=== PATIENT | male | born 1950 | race Caucasian/White ===

== ENCOUNTER 2019-09-01 07:26 | Outpatient (CLI) | payer MEDICARE, OTHER, SELFPAY ==
[2019-09-01 08:07] LABS: Hematocrit 40.1 % (42.0-52.0); Hemoglobin 13.3 g/dL (14.0-18.0); Mean Corpuscular HGB Conc 33.2 g/dl (32-36); Mean Corpuscular Hemoglobin 30.3 pg (26-34); Mean Corpuscular Volume 91.3 fl (80-100); Mean Platelet Volume 9.3 fl (7.4-10.4); Platelet Count Result 190 k/mm3 (150-375); Red Blood Count 4.39 M/mm3 (4.6-6.20); Red Cell Distribution Width 13.7 % (11.5-14.5); White Blood Count 5.8 K/mm3 (4.5-10.0)
[2019-09-01 08:09] LABS: Alanine Aminotransferase 20 U/L (4-50); Albumin Level 4.3 g/dL (3.5-5.1); Alkaline Phosphatase 70 U/L (38-126); Aspartate Amino Transferase 35 U/L (17-59); Bilirubin,Total 0.2 mg/dL (0.2-1.3); Blood Urea Nitrogen 15 mg/dL (9-20); Calcium 9.3 mg/dL (8.4-10.2); Carbon Dioxide 31 mmol/L (22-30); Chloride 105 mmol/L (98-107); Cholesterol 188 mg/dL (0-200); Estimated Glomerular Filt Rate > 60; Glucose 100 mg/dL (75-110); HDL Direct 50 mg/dL; Potassium 4.5 mmol/L (3.4-5.0); Sodium 140 mmol/L (137-145); Triglycerides 115 mg/dL (<150)
[2019-09-01 08:20] LABS: LDL Cholesterol Direct 109 mg/dL
[2019-09-01 08:40] LABS: Prostate Specific Antigen 1.4 ng/mL (< OR = 4.0)
== END 2019-09-01 07:27 | disposition home or self-care (01) ==
PROVIDERS: PCP Family Medicine; Visit Provider Family Medicine
DX: D64.9 Anemia, unspecified (principal); E78.2 Mixed hyperlipidemia; Z12.5 Encounter for screening for malignant neoplasm of prostate
CPT/HCPCS: 36415; 80048; 80061; 80076; 84153; 85027; G0103

== ENCOUNTER 2019-10-25 16:33 | Emergency (ER) | payer MEDICARE, OTHER, SELFPAY ==
[2019-10-25 16:46] VITALS: BP 119/74; PULSE 70; RESP 20; TEMP 37.1; O2SAT 100
--- NOTE | 2019-10-25 16:57 | ED.WOUNDLAC ---
HPI - Wound/Laceration General Chief Complaint: Wound/Laceration Stated Complaint: L/index finger Source: patient Mode of arrival: ambulatory Limitations: no limitations History of Present Illness HPI narrative: 69-year-old male presents to urgent care with complaints of laceration to his left index finger which occurred 1 to 2 hours ago. Patient reports that he cut his finger on a trailer at home. Patient is unsure of his last tetanus shot. Patient denies numbness, tingling, decreased range of motion. Onset (ago): hour(s) (2) Location: other (left index finger) Place: home Patient tetanus UTD: No Context: accidental Associated symptoms: none Related Data Allergies Allergy/AdvReac Type Severity Reaction Status Date / Time No Known Allergies Allergy Verified 08/25/19 15:00 Review of Systems Review of Systems: All systems reviewed & are unremarkable except as noted in HPI and below Constitutional: Constitutional: Denies chills, Denies fatigue, Denies fever(s) and Denies weakness ENT: Denies dysphagia and Denies dizziness Cardiovascular: Cardiovascular: Denies chest pain, Denies rapid heart rate, Denies radiating jaw, neck or arm pain and Denies slow heart rate Respiratory: Respiratory: Denies cough and Denies wheezing Gastrointestinal: Gastrointestinal: Denies abdominal pain, Denies diarrhea, Denies nausea and Denies vomiting Integumentary/Breasts: Skin/Breast: Denies rash Comments: laceration to left index finger Endocrine: Endocrine: Denies fatigue Allergic/Immunologic: Allergic/Immunologic: Denies lip swelling, Denies throat swelling, Denies tongue swelling and Denies wheezing PMF Past Medical History Medical History Anemia Bilateral primary osteoarthritis of knee Male erectile dysfunction, unspecified Memory loss Mixed hyperlipidemia Screening PSA (prostate specific antigen) Family History Family History Father Cerebrovascular accident Other Family history of arthritis Social History Social History Smoking status: Never smoker Alcohol intake: current Gender identity (if verbalized by the patient): Male Exam Const: General: healthy appearing, no acute distress and alert; No ill appearing Orientation/consciousness: patient oriented x3 Neck: Neck: no lymphadenopathy Resp: Effort & Inspection: normal respiratory effort, not labored and not tachypneic Auscultation: clear to auscultation bilaterally Cardio: Rate: regular rate, not bradycardic and not tachycardic Rhythm: regular rhythm Heart sounds: no murmurs Skin: General skin exam: normal color, jaundice and pallor Rashes: no rashes Other: 2 cm L-shaped laceration noted to Palmar aspect of distal phalanx of left index finger. Mild gapping noted. Bleeding is controlled. Full range of motion noted to finger. Pulses are WNL Neuro: General: patient oriented x3 and moves all extremities Extrem: General: clubbing, cyanosis or edema noted and no edema Other: laceration noted to left index finger -- see skin section of chart Psych: Appearance: grossly normal Affect: normal affect Attitude: cooperative Thought content: Yes Normal thought content present Course Vital Signs Vital signs: Vital Signs Temperature 37.1 C 10/25/19 16:46 Pulse Rate 70 10/25/19 16:46 Respiratory Rate 20 10/25/19 16:46 Blood Pressure 119/74 10/25/19 16:46 Pulse Oximetry 100 10/25/19 16:46 Temperature 37.1 C 10/25/19 16:46 Pulse Rate 70 10/25/19 16:46 Respiratory Rate 20 10/25/19 16:46 Blood Pressure 119/74 10/25/19 16:46 Pulse Oximetry 100 10/25/19 16:46 Procedures Laceration Laceration 1: Date: 10/25/19 Time: 17:34 Site: other (distal phalanx of left index finger) Side (If applicable): left Size (cm): 2 D
[2019-10-25] MEDS: TETANUS,DIPHTHERIA,AC PERTUSSIS ADULT (0.5 ML) BOOSTRIX IM (17:09)
== END 2019-10-25 17:39 | disposition home or self-care (01) ==
PROVIDERS: Emergency Provider Nurse Practitioner Family; PCP Family Medicine
DX: S61.211A Laceration without foreign body of left index finger without damage to nail, initial encounter (principal); W45.8XXA Other foreign body or object entering through skin, initial encounter; Z23 Encounter for immunization; M17.0 Bilateral primary osteoarthritis of knee; E78.2 Mixed hyperlipidemia
CPT/HCPCS: 12001; 90471; 90715; 99212; G0463

== ENCOUNTER 2020-02-16 09:57 | Outpatient (CLI) | payer MEDICARE, OTHER, SELFPAY ==
--- NOTE | 2020-02-16 10:59 | ECG_ITS ---
Measurements Intervals [place] Rate: 51 P: 18 [place]: 140 QRS: 25 QRSD: 99 T: 24 QT: 419 QTc: 389 Interpretive Statements SINUS BRADYCARDIA BASELINE ARTIFACT- I, II, III, AVR, AVL, AVF BORDERLINE ECG Electronically Signed On 02-16-2020 11:11:26 TECHNICAL PROFESSIONAL by Kalyan Clifford D.O.
[2020-02-16 11:40] LABS: Basophils Percent Auto 0.8 % (0.2-1.2); Eosinophils Absolute Auto 0.2 K/mm3 (0-0.3); Eosinophils Percent Auto 3.8 % (0-4.4); Hematocrit 40.2 % (42.0-52.0); Hemoglobin 13.7 g/dL (14.0-18.0); Immature Granulocyte Absolute 0.03 K/mm3 (0.00-0.031); Immature Granulocyte Percent A 0.8 % (0-0.5); Lymphocytes Absolute Auto 0.64 K/mm3 (0.9-3.2); Lymphocytes Percent Auto 16.3 % (18.3-44.2); Mean Corpuscular HGB Conc 34.1 g/dl (32-36); Mean Corpuscular Hemoglobin 31.4 pg (26-34); Mean Platelet Volume 8.9 fl (7.4-10.4); Monocytes Absolute Auto 0.5 K/mm3 (0.1-0.6); Neutrophils Absolute Auto 2.6 K/mm3 (1.3-6.7); Neutrophils Percent Auto 66.3 % (45.5-73.1); Platelet Count Result 176 k/mm3 (150-375); Red Blood Count 4.37 M/mm3 (4.6-6.20); Red Cell Distribution Width 12.7 % (11.5-14.5); White Blood Count 3.9 K/mm3 (4.5-10.0)
[2020-02-16 11:45] LABS: Add Urine Microscopic? NO; Appearance Urine Clear (Clear); Bilirubin Urine Negative (Negative); Blood Urine Negative (Negative); Color Urine Yellow (Yellow); Glucose Urine UA Negative (Negative); Ketones Urine Negative (Negative); Leukocyte Esterase Ur Negative LEU/UL (Negative); Nitrate Urine Negative (Negative); Protein Urine Negative (Negative); Specific Grav Ur 1.012 (1.001-1.035); Urobilinogen Urine Negative mg/dL (<2.0)
[2020-02-16 11:51] LABS: INR 0.9; Partial Thromboplastin Time 26.9 SECONDS (22.3-36.8); Prothrombin Time 12.4 Seconds (11.1-14.7)
[2020-02-16 12:00] LABS: Albumin Level 4.2 g/dL (3.5-5.1); Anion Gap 6 mmol/L (8-16); Blood Urea Nitrogen 16 mg/dL (9-20); Calcium 9.5 mg/dL (8.4-10.2); Carbon Dioxide 31 mmol/L (22-30); Chloride 102 mmol/L (98-107); Estimated Glomerular Filt Rate > 60; Glucose 96 mg/dL (75-110); Potassium 4.2 mmol/L (3.4-5.0); Sodium 139 mmol/L (137-145)
[2020-02-16 12:02] LABS: Urine Cotinine NEGATIVE
[2020-02-16 12:52] LABS: Hemoglobin A1C 5.1 % (<5.7)
== END 2020-02-16 09:58 | disposition home or self-care (01) ==
LOC: ANHSURGERY 10:01
PROVIDERS: PCP Family Medicine; Visit Provider Orthopaedic Surgery
DX: Z01.818 Encounter for other preprocedural examination (principal); M17.0 Bilateral primary osteoarthritis of knee; R00.1 Bradycardia, unspecified; Z51.81 Encounter for therapeutic drug level monitoring; Z79.899 Other long term (current) drug therapy
CPT/HCPCS: 80048; 80307; 81003; 82040; 83036; 85025; 85610; 85730; 86850; 86900; 86901; 87081; 93005

== ENCOUNTER 2020-02-20 01:25 | Outpatient (CLI) | payer MEDICARE, OTHER, SELFPAY ==
[2020-02-20 20:15] LABS: SARS-CoV-2 RNA PCR Negative
== END 2020-02-20 01:26 | disposition home or self-care (01) ==
LOC: ANHCOVIDDT 01:25
PROVIDERS: PCP Family Medicine; Visit Provider Orthopaedic Surgery
DX: Z01.818 Encounter for other preprocedural examination (principal); M17.0 Bilateral primary osteoarthritis of knee; Z20.828 Contact with and (suspected) exposure to other viral communicable diseases
CPT/HCPCS: 87635; C9803; U0003

== ENCOUNTER 2020-02-24 00:25 | Day surgery (SDC) | payer MEDICARE, OTHER, SELFPAY ==
[2020-02-16 10:26] VITALS: BP 118/80; PULSE 60; RESP 20; TEMP 37.2; O2SAT 100; BMI 25.3
--- NOTE | 2020-02-23 13:23 | WPDANESEPPF ---
Anes - Initial Pre Proc Eval Procedure: Operation Date: 02/24/20 07:30 Proposed Procedures p Right Total Knee Arthroplasty - Kevin Cates MD Date/Time: 02/23/20 13:23 Surgeon: Kevin Cates MD Pre Op Diagnosis: Right Knee DJD Patient Data Age: 69 Gender: M Height: 1.68 m Weight: 71.3 kg Last Vital Signs Temp 37.2 C 02/16/20 10:26 Pulse 60 02/16/20 10:26 Resp 20 02/16/20 10:26 BP 118/80 02/16/20 10:26 Pulse Ox 100 02/16/20 10:26 Allergies Allergy/AdvReac Type Severity Reaction Status Date / Time No Known Allergies Allergy Verified 02/24/20 06:27 Home Medications Medication Instructions Recorded Confirmed Type chlorhexidine gluconate 4 % 1 applic TOPICAL ONCE #237 ml 02/11/20 02/24/20 Rx topical liquid aspirin 325 mg tablet 325 mg PO BID #56 tablet 02/15/20 02/24/20 Rx docusate sodium 100 mg capsule 100 mg PO BID #60 cap 02/15/20 02/24/20 Rx meloxicam 15 mg PO QAM 02/16/20 02/24/20 History obrwezzj-dsw-XX-lycopen-lutein 1 tablet PO DAILY 02/16/20 02/24/20 History [Centrum Silver Men] zinc 25 mg PO DAILY 02/16/20 02/24/20 History Patient hx anesthesia problems: none Family hx anesthesia problems: none PMFSH Past Medical History Medical History Anemia Arthritis Bilateral primary osteoarthritis of knee Dry mouth History of cancer tounge Male erectile dysfunction, unspecified Memory loss Mixed hyperlipidemia Screening PSA (prostate specific antigen) Surgical History Surgical History History of lymph node excision right side of neck Family History Family History Father Cerebrovascular accident Other Family history of arthritis Social History Social History Smoking status: Never smoker Alcohol intake: current Drinks per week: 6 Substance use: never Living arrangements: with family Gender identity (if verbalized by the patient): Male Spiritual care concerns: No Anes - Eval Final PreProcedure Day of Procedure 02/23/20 13:23 Patient weight: normal Heart: regular rate and rhythm Lungs: clear to auscultation and normal air movement Airway: Mallampati scale (limited mouth opening due to radiation) class IV Neurological: alert and oriented Last oral intake: >/= 8 hours ASA classification: II Emergent: no Anesthetic plan: proceed Anesthesia type and monitoring: general LMA and standard monitoring Informed Consent: The patient's anesthetic plan and its attendant risks and benefits were discussed with the patient/family/POA. Questions were solicited and answers provided to the satisfaction of the patient/family/POA.
[2020-02-24] VITALS (9 sets, daily range): BP systolic 105–121; BP diastolic 68–86; PULSE 69–108; RESP 10–20; TEMP 36.4–36.5; O2SAT 97–100
--- NOTE | ~2020-02-24 | XR_ITS ---
EXAMINATION: XR knee RT 2V DATE: 02/24/2020 11:03 INDICATION: Total right knee arthroplasty. Postop. TECHNIQUE: 2 views of right knee on 3 radiographs were obtained. COMPARISON: Right knee radiographs 12/14/2019 FINDINGS: There is a total right knee arthroplasty without patellar resurfacing in near-anatomic alig nment. No fracture. There is gas in the knee joint and soft tissues, consistent with recent surgery. Anterior skin anabel are noted. IMPRESSION: 1. Total right knee arthroplasty in near-anatomic alignment. Reviewed, dictated and finalized at location A. INE SNELLER
[2020-02-24] MEDS: ACETAMINOPHEN 500 MG TABLET 1000 MG PO (06:26)
[2020-02-24] MEDS: LACTATED RINGERS 1,000 ML 30 ML IV CONT ×2 (06:40→10:25)
[2020-02-24] MEDS: TRANEXAMIC ACID 1,000MG/ISO100 1,000 MG/100 ML BAG 200 MG IVPB (06:45)
--- NOTE | 2020-02-24 07:22 | WPDHPUPDATE1 ---
History and Physical Update Update Date/Time: 02/24/20 07:22 History and Physical has been reviewed, including an updated exam of the patient. There are NO changes in the patient's condition. Risks, benefits, and alternatives have been discussed and questions answered. Patient agrees to proceed with procedure.
[2020-02-24] MEDS: ceFAZolin 2 GM/D5W 50 ML 2 GM/50 ML BAG IVPB (07:37)
--- NOTE | 2020-02-24 07:38 | WPDANESPNB ---
Anes - Peripheral Nerve Block Date/Time: 02/24/20 07:38 I have discussed with the patient/family/POA the placement of a peripheral nerve block for post-operative pain management, including associated risks, benefits, complications, and side effects. Alternative methods of post-operative analgesia were detailed. Questions were solicited and answers provided to the satisfaction of the patient/family/POA. Time-Out: A pre-procedural Time-Out was completed immediately before starting the procedure and confirmed: Patient Identification, Site, Procedure, Patient Position and the Availability of Requisite Equipment. Clinical Indications: Acute post-operative pain management requested by the operative surgeon. Nerve Block Insertion Note Anes-nerve block: adductor canal right Patient position: supine Skin prep: chlorhexidine Needle: 22 gauge, stimulating, insulated echogenic needle. Needle length: 80 mm Technique: ultrasound Injectate: bupivacaine 0.5% with epi 5 mcg/ml (30cc) Observations: tolerated well Complications: none Procedure start time:: 730 Procedure end time:: 733
[2020-02-24] MEDS: GENTAMICIN BONE CEMENT REFOBACIN 1 EACH TOPICAL (08:05)
[2020-02-24] MEDS: TRANEXAMIC ACID 1,000 MG/10 ML AMPUL 1000 MG IV PUSH (09:30)
--- NOTE | 2020-02-24 10:08 | PM.PROC ---
Procedure Note - Detailed Date of procedure: 02/24/20 Pre-op diagnosis: Right Knee DJD Post-op diagnosis: same Procedure performed: R TKA Description of procedure: THE RIGHT KNEE WAS PREPPED AND DRAPED IN THE STERILE FASHION. A MIDLINE SKIN INCISION WAS MADE. A MEDIAL PARAPATELLAR ARTHROTOMY WAS MADE. THE PATELLA WAS EVERTED. THERE WAS TRICOMPARTMENT DJD. THERE WAS MINIMAL PATELLA DJD. AN INTRAMEDULLARY TAMIA WAS PLACED IN THE FEMUR. A DISTAL FEMORAL CUT WAS MADE IN 5 DEGREES OF VALGUS REMOVING APPROXIMATELY 9 MM OF BONE FROM THE DISTAL FEMUR. THE FEMUR WAS SIZED TO 60. A 65 FEMORAL CUTTING BLOCK WAS PLACED IN 3 DEGREES OF EXTERNAL ROTATION AND IN ALIGNMENT WITH ALEJANDRO'S LINE AND THE TRANSEPICONDYLAR AXIS. ANTERIOR POSTERIOR AND CHAMFER CUTS WERE MADE. THE CUTS WERE EXCELLENT. NEXT AN INTRAMEDULLARY CUTTING GUIDE WAS PLACED IN THE TIBIA. A TRANS TIBIAL CUT WAS MADE ALONG THE LONG AXIS OF THE TIBIA. APPROXIMATELY 10 MM OF BONE WAS REMOVED FROM THE HIGH SIDE OF THE TIBIA. THE TIBIA WAS THEN PLANED TO A SMOOTH SURFACE. POSTERIOR FEMORAL OSTEOPHYTES WERE REMOVED FROM THE FEMORAL CONDYLES. A 75 TIBIAL TRIAL WAS PLACED IN ALIGNMENT WITH THE 1/3 MEDIAL ASPECT OF THE TIBIAL TUBERCLE. THEN A 65 FEMORAL TRIAL COMPONENT WAS PLACED. BOTH HAD EXCELLENT FITS. EVENTUALLY A 10 MM POLYETHYLENE TRIAL COMPONENT WAS PLACED. THE KNEE WAS TAKEN THROUGH A RANGE OF MOTION. THE KNEE CAME OUT TO FULL EXTENSION. THERE WAS NO ABNORMAL TILT TO THE PATELLA. THERE WAS GOOD A/P AND VARUS/VALGUS STABILITY. THERE WAS NO EXCESSIVE ROLL BACK WITH FLEXION. THE TRIAL COMPONENTS WERE REMOVED. THEN A 65 FEMORAL COMPONENT AND 75 TIBIAL COMPONENT WITH A 10 CR POLYETHYLENE COMPONENT WERE CEMENTED INTO PLACE. THE IMPLANTS WERE FLUSH WITH THE CUT BONE SURFACES. THE KNEE WAS TAKEN THROUGH A ROM AGAIN AND FOUND TO BE STABLE WITH NO PATELLA TILT NO EXCESSIVE ROLL BACK WITH FLEXION AND GOOD STABILITY WITH COMPLETE AND FULL EXTENSION. THE KNEE WAS IRRIGATED WITH STERILE BETADINE AND WATER FOR ABOUT 3 MINUTES. THE BLEEDERS WERE CAUTERIZED. THE ARTHROTOMY WAS REPAIRED WITH NUMBER 1 VICRYL. THE SUB CUTANEOUS LAYER WITH 2-0 VICRYL AND THE SKIN WITH DAYANNA. THE WOUND WAS WASHED AND A STERILE DRESSING WAS APPLIED. PATIENT WAS EXTUBATED. Anesthesia: GETA Surgeon: Kevin Cates MD Estimated blood loss (mL): 100 Complications: No immediate complications Condition: stable Disposition: PACU
--- NOTE | 2020-02-24 10:50 | SUR.PHASEI ---
PORTABLE XRAY OF RIGHT KNEE DONE.
[2020-02-24] MEDS: oxyCODONE HCL (*CRX) 5 MG TAB IR PO (13:28)
--- NOTE | 2020-02-24 13:38 | SUR.PHASEII ---
Ann PMikael ADKINS WORKING WITH PTJim
--- NOTE | 2020-02-24 13:42 | SUR.PHASEII ---
[address] HUGO SPEAKING WITH PT. PT MEETS ANESTHESIA DISCHARGE CRITERIA. DISCHARGE INSTRUCTIONS GIVEN TO PT- ALL QUESTIONS ANSWERED. DENIES PAIN. WAITING ON RIDE HOME.
== END 2020-02-24 14:05 | disposition home or self-care (01) ==
PROVIDERS: PCP Family Medicine; Visit Provider Orthopaedic Surgery
PROC: (CPT 27447; principal; 2020-02-24 07:30)
DX: M17.11 Unilateral primary osteoarthritis, right knee (principal); G89.18 Other acute postprocedural pain; E78.2 Mixed hyperlipidemia; Z79.82 Long term (current) use of aspirin; Z85.810 Personal history of malignant neoplasm of tongue
CPT/HCPCS: 27447; 64447; 73560; 97161; A9270; C1713; C1776; C9290; J0171; J0690; J1100; J1170; J2270; J2370; J2405; J2704; J2795; J3010; J7120

== ENCOUNTER 2020-05-05 08:58 | Outpatient (CLI) | payer MEDICARE, OTHER, SELFPAY ==
[2020-05-05 09:39] LABS: Urine Cotinine NEGATIVE
[2020-05-05 10:00] LABS: Albumin Level 4.3 g/dL (3.5-5.1); Anion Gap 5 mmol/L (8-16); Blood Urea Nitrogen 12 mg/dL (9-20); Calcium 9.1 mg/dL (8.4-10.2); Carbon Dioxide 30 mmol/L (22-30); Chloride 102 mmol/L (98-107); Estimated Glomerular Filt Rate > 60; Glucose 91 mg/dL (75-110); Potassium 4.5 mmol/L (3.4-5.0); Sodium 137 mmol/L (137-145)
[2020-05-05 10:00] LABS: Basophils Percent Auto 0.7 % (0.2-1.2); Eosinophils Absolute Auto 0.1 K/mm3 (0-0.3); Eosinophils Percent Auto 4.2 % (0-4.4); Hematocrit 39.4 % (42.0-52.0); Immature Granulocyte Absolute 0.01 K/mm3 (0.00-0.031); Immature Granulocyte Percent A 0.4 % (0-0.5); Lymphocytes Absolute Auto 0.68 K/mm3 (0.9-3.2); Lymphocytes Percent Auto 23.9 % (18.3-44.2); Mean Corpuscular Hemoglobin 29.8 pg (26-34); Mean Corpuscular Volume 90.4 fl (80-100); Mean Platelet Volume 9.3 fl (7.4-10.4); Monocytes Absolute Auto 0.5 K/mm3 (0.1-0.6); Monocytes Percent Auto 16.1 % (2.6-8.5); Neutrophils Absolute Auto 1.6 K/mm3 (1.3-6.7); Neutrophils Percent Auto 54.7 % (45.5-73.1); Platelet Count Result 206 k/mm3 (150-375); Red Blood Count 4.36 M/mm3 (4.6-6.20); Red Cell Distribution Width 13.6 % (11.5-14.5); White Blood Count 2.9 K/mm3 (4.5-10.0)
[2020-05-05 10:01] LABS: Add Urine Microscopic? NO; Appearance Urine Clear (Clear); Bilirubin Urine Negative (Negative); Blood Urine Negative (Negative); Color Urine Straw (Yellow); Glucose Urine UA Negative (Negative); Ketones Urine Negative (Negative); Leukocyte Esterase Ur Negative LEU/UL (Negative); Nitrate Urine Negative (Negative); Protein Urine Negative (Negative); Specific Grav Ur 1.011 (1.001-1.035); Urobilinogen Urine Negative mg/dL (<2.0)
[2020-05-05 10:17] LABS: INR 0.9; Partial Thromboplastin Time 28.8 SECONDS (22.3-36.8); Prothrombin Time 12.6 Seconds (11.1-14.7)
[2020-05-05 10:32] LABS: Hemoglobin A1C 4.8 % (<5.7)
== END 2020-05-05 08:59 | disposition home or self-care (01) ==
LOC: ANHSURGERY 09:03
PROVIDERS: PCP Family Medicine; Visit Provider Orthopaedic Surgery
DX: M17.12 Unilateral primary osteoarthritis, left knee (principal); Z01.818 Encounter for other preprocedural examination
CPT/HCPCS: 80048; 80307; 81003; 82040; 83036; 85025; 85610; 85730; 86850; 86900; 86901; 87081

== ENCOUNTER → 2020-05-07 01:29 | Outpatient (CLI) | payer MEDICARE, OTHER, SELFPAY ==
[2020-05-07 19:42] LABS: SARS-CoV-2 RNA PCR Negative
== END ==
PROVIDERS: PCP Family Medicine; Visit Provider Orthopaedic Surgery
DX: Z01.812 Encounter for preprocedural laboratory examination (principal); Z20.822 Contact with and (suspected) exposure to COVID-19
CPT/HCPCS: C9803; U0003; U0005

== ENCOUNTER 2020-05-11 01:02 | Day surgery (SDC) | payer MEDICARE, OTHER, SELFPAY ==
[2020-05-04 10:51] VITALS: BMI 25.0
[2020-05-11] VITALS (11 sets, daily range): BP systolic 113–133; BP diastolic 66–90; PULSE 61–90; RESP 12–20; TEMP 36.2–36.9; O2SAT 98–100
--- NOTE | ~2020-05-11 | XR_ITS ---
EXAMINATION: XR knee LT 2V DATE: 05/11/2020 11:21 INDICATION: Postoperative evaluation following left total knee arthroplasty. TECHNIQUE: Anteroposterior and lateral views of the left knee were obtained. COMPARISON: 12/14/2019 FINDINGS: Left total knee arthroplasty without evident patellar resurfacing appears well seated and in near sanju tomic alignment. There has however been resection of osteophytes at the proximal and distal patella a s well as removal of loose osteochondral bodies at the suprapatellar pouch. No fractures identified. Skin anabel and expected postoperative subcutaneous, intramedullary and intra-articular gas. IMPRESSION: 1. Left total knee arthroplasty, negative for postoperative purposes. Reviewed, dictated and finalized at location B. ESS AND WELLNESS COORDINATOR
[2020-05-11] MEDS: TRANEXAMIC ACID 1,000MG/ISO100 1,000 MG/100 ML BAG 200 MG IVPB (07:00)
[2020-05-11] MEDS: LACTATED RINGERS 1,000 ML 30 ML IV CONT ×2 (07:00→11:23)
[2020-05-11] MEDS: ACETAMINOPHEN 500 MG TABLET 1000 MG PO (07:05)
--- NOTE | 2020-05-11 07:07 | WPDANESEPPF ---
Anes - Initial Pre Proc Eval Procedure: Operation Date: 05/11/20 07:30 Proposed Procedures p Left Total Knee Arthroplasty, With Right Knee Manipulation Under Anesthesia With Injection - Kevin Cates MD Date/Time: 05/11/20 07:07 Surgeon: Kevin Cates MD Pre Op Diagnosis: Left Knee DJD, Right Knee Adhesive Capsulitis Patient Data Age: 69 Gender: M Height: 1.68 m Weight: 70.31 kg Allergies Allergy/AdvReac Type Severity Reaction Status Date / Time No Known Allergies Allergy Verified 05/11/20 06:25 Home Medications Medication Instructions Recorded Confirmed Type chlorhexidine gluconate 4 % 1 applic TOPICAL ONCE #237 ml 02/11/20 05/04/20 Rx topical liquid docusate sodium 100 mg capsule 100 mg PO BID #60 cap 02/15/20 05/04/20 Rx Centrum Silver Men 1 tablet PO DAILY 02/16/20 05/11/20 History zinc 25 mg PO DAILY 02/16/20 05/04/20 History oxycodone-acetaminophen 7.5 mg-325 1 tablet PO Q6H PRN #60 tablet 03/17/20 05/04/20 Rx mg tablet meloxicam 15 mg tablet 15 mg PO QAM #90 tablet 04/05/20 05/04/20 Rx aspirin 325 mg PO QAM 05/04/20 05/11/20 History cholecalciferol (vitamin D3) 75 mcg PO DAILY 05/04/20 05/04/20 History Patient hx anesthesia problems: none Family hx anesthesia problems: none PMFSH Past Medical History Medical History (Updated 04/28/20 @ 10:54 by Kevin Cates MD) Anemia Arthritis Bilateral primary osteoarthritis of knee Dry mouth History of cancer tounge Male erectile dysfunction, unspecified Memory loss Mixed hyperlipidemia Screening PSA (prostate specific antigen) Surgical History Surgical History History of lymph node excision right side of neck Family History Family History Father Cerebrovascular accident Other Family history of arthritis Social History Social History Additional smoking assessment comments: DENIES ANY FORM OF TOBACCO USE Alcohol intake: current Drinks per week: 6 Substance use: never Living arrangements: with family Gender identity (if verbalized by the patient): Male Spiritual care concerns: No Anes - Eval Final PreProcedure Day of Procedure 05/11/20 07:07 Patient weight: normal Heart: regular rate and rhythm Lungs: clear to auscultation and normal air movement Airway: Mallampati scale class II Neurological: alert and oriented Last oral intake: >/= 8 hours ASA classification: III Emergent: no Anesthetic plan: proceed Anesthesia type and monitoring: general LMA Informed Consent: The patient's anesthetic plan and its attendant risks and benefits were discussed with the patient/family/POA. Questions were solicited and answers provided to the satisfaction of the patient/family/POA.
--- NOTE | 2020-05-11 07:10 | WPDANESPNB ---
Anes - Peripheral Nerve Block Date/Time: 05/11/20 07:10 I have discussed with the patient/family/POA the placement of a peripheral nerve block for post-operative pain management, including associated risks, benefits, complications, and side effects. Alternative methods of post-operative analgesia were detailed. Questions were solicited and answers provided to the satisfaction of the patient/family/POA. Time-Out: A pre-procedural Time-Out was completed immediately before starting the procedure and confirmed: Patient Identification, Site, Procedure, Patient Position and the Availability of Requisite Equipment. Clinical Indications: Acute post-operative pain management requested by the operative surgeon. Nerve Block Insertion Note Anes-nerve block: adductor canal left Patient position: supine Skin prep: chlorhexidine Needle: 22 gauge, stimulating, insulated echogenic needle. Needle length: 80 mm Technique: ultrasound Technique comment: in plane Injectate: bupivacaine 0.5% with epi 5 mcg/ml (30cc) Observations: tolerated well Complications: none Procedure start time:: 725 Procedure end time:: 730
--- NOTE | 2020-05-11 07:20 | WPDHPUPDATE1 ---
History and Physical Update Update Date/Time: 05/11/20 07:20 History and Physical has been reviewed, including an updated exam of the patient. There are NO changes in the patient's condition. Risks, benefits, and alternatives have been discussed and questions answered. Patient agrees to proceed with procedure.
[2020-05-11] MEDS: ceFAZolin 2 GM/D5W 50 ML 2 GM/50 ML BAG IVPB (07:36)
[2020-05-11] MEDS: BUPIVACAINE HCL 0.5% PF 30 ML VIAL INFILTRATE (08:48)
[2020-05-11] MEDS: methylPREDNISolone ACETATE 80 MG/ML VIAL 160 MG IM (08:49)
--- NOTE | 2020-05-11 10:59 | P.OP_ITS ---
Procedure Note - Detailed Date of procedure: 05/11/20 Pre-op diagnosis: Left Knee DJD, Right Knee Adhesive Capsulitis Post-op diagnosis: same Procedure performed: L TKA WITH AUTO GRAFT BONE RECONSTRUCTION OF TIBIA, R KNEE JUAN WITH INJECTION Description of procedure: THE PATIENT WAS TAKEN TO THE OR INSTABLE CONDITION. THE PATIENT WAS CHEMICALLY PARALYZED. THE RIGHT KNEE FLEXION WAS AT 85 DEG AND EXTENSION WAS AT 5 DEG. ONCE THE PATIENT WAS COMPLETELY SEDATE WITH NO TWITCHES PER ANESTHESIA, THE RIGHT KNEE UNDERWENT MANIPULATION TO ABOUT 125 DEG OF FLEXION AND 0 DEG OF EXTENSION. AUDIBLE ADHESIOLYSIS WAS OBSERVED DURING THE MANIPULATION. THE KNEE THEN WAS TAKEN THROUGH A RANGE OF MOTION AND WAS FELT TO BE LIGAMENTOUSLY STABLE. THE RIGHT KNEE THEN WAS PREPPED STERILE WITH CHLORHEXIDINE AND THEN BETADINE. HE RIGHT KNEE JOINT WAS INJECTED WITH DEPO MEDROL 80 MG 2CC AND MARCAINE 0.5% 5 CCs. NEXT THE LEFT KNEE WAS PREPPED AND DRAPED IN THE STERILE FASHION. A MIDLINE SKIN INCISION WAS MADE. A MEDIAL PARAPATELLAR ARTHROTOMY WAS MADE. THE PATELLA WAS EVERTED. THERE WAS TRICOMPARTMENT DJD. THERE WAS MINIMAL PATELLA DJD. AN INTRAMEDULLARY TAMIA WAS PLACED IN THE FEMUR. A DISTAL FEMORAL CUT WAS MADE IN 5 DEGREES OF VALGUS REM OVING APPROXIMATELY 9 MM OF BONE FROM THE DISTAL FEMUR. THE FEMUR WAS SIZED TO 65. A 65 FEMORAL CUTTING BLOCK WAS PLACED IN 3 DEGREES OF EXTERNAL ROTATION AND IN ALIGNMENT WITH ALEJANDRO'S LINE AND THE TRANSEPICONDYLAR AXIS. ANTERIOR POSTERIOR AND CHAMFER CUTS WERE MADE. THE CUTS WERE EXCELLENT. NEXT AN INTRAMEDULLARY CUTTING GUIDE WAS PLACED IN THE TIBIA. A TRANS TIBIAL CUT WAS MADE ALONG THE LONG AXIS OF THE TIBIA. APPROXIMATELY 10 MM OF BONE WAS REMOVED FROM THE HIGH SIDE OF THE TIBIA. THE TIBIA WAS THEN PLANED TO A SMOOTH SURFACE. POSTERIOR FEMORAL OSTEOPHYTES WERE REMOVED FROM THE FEMORAL CONDYLES. THERE WAS A LARGE CONTAINED DEFECT TO THE POSTERIOR MEDIAL TIBIAL PLATEAU THAT EXTENDED TO THE POSTERIOR MEDIAL CORTEX. THE DEFECT MEASURED ABOUT 3 CMM LONG X 1 CM WIDE X 3 CM DEPTH THIS WAS CURETTED TO GOOD BLEEDING BONE. A 75 TIBIAL TRIAL WAS PLACED IN ALIGNMENT WITH THE 1/3 MEDIAL ASPECT OF THE TIBIAL TUBERCLE. THEN A 65 FEMORAL TRIAL COMPONENT WAS PLACED. BOTH HAD EXCELLENT FITS. EVENTUALLY A 10 MM POLYETHYLENE TRIAL COMPONENT WAS PLACED. THE KNEE WAS TAKEN THROUGH A RANGE OF MOTION. THE KNEE CAME OUT TO FULL EXTENSION. THERE WAS NO ABNORMAL TILT TO THE PATELLA. THERE WAS GOOD A/P AND VARUS/VALGUS STABILITY. THERE WAS NO EXCESSIVE ROLL BACK WITH FLEXION. THE TRIAL COMPONENTS WERE REMOVED. THE KNEE JOINT WAS IRRIGATED. THE TIBIAL DEFECT WAS ADDRESSED. AUTO GRAFT BONE WAS USED TO FILL THE DEFECT. THE DEFECT WAS STABLE. THEN A 65 FEMORAL COMPONENT AND 75 TIBIAL COMPONENT WITH A 10 POLYETHYLENE COMPONENT WERE CEMENTED INTO PLACE. ONCE THE CEMENT WAS HARD THE KNEE WAS TAKEN THROUGH A ROM AGAIN AND FOUND TO BE STABLE WITH NO PATELLA TILT NO EXCESSIVE ROLL BACK WITH FLEXION AND GOOD STABILITY WITH COMPLETE AND FULL EXTENSION. THE KNEE WAS IRRIGATED WITH STERILE BETADINE AND WATER FOR ABOUT 3 MINUTES. THE BLEEDERS WERE CAUTERIZED. THE ARTHROTOMY WAS REPAIRED WITH NUMBER 1 VICRYL. THE SUB CUTANEOUS LAYER WITH 2-0 VICRYL AND THE SKIN WITH DAYANNA. THE WOUND WAS WASHED AND A STERILE DRESSING WAS APPLIED. PATIENT WAS EXTUBATED. Anesthesia: GETA Surgeon: Kevin Cates MD Estimated blood loss (mL): 100 Complications: No immediate complications Condition: stable Disposition: PACU
[2020-05-11] MEDS: fentaNYL CITRATE INJ (*CRX) 100 MCG/2 ML VIAL 25 MCG IV PUSH ×2 (11:49→11:52)
--- NOTE | 2020-05-11 12:40 | SUR.PHASEII ---
1240- Patient offered lunch and declining ordering a meal at this time. Denying nausea and tolerating анна crackers/saltine crackers with juice at this time. Informed patient he can order a lunch tray at any time prior to his discharge today.
[2020-05-11] MEDS: oxyCODONE HCL (*CRX) 5 MG TAB IR PO (12:53)
--- NOTE | 2020-05-11 13:30 | SUR.PHASEII ---
1320- Patient working with Marry from physical therapy. Patient ambulating in hallway with walker and working on safe mobility. 1330- Per Marry from physical therapy patient is cleared for discharge.
== END 2020-05-11 13:59 | disposition home or self-care (01) ==
PROVIDERS: PCP Family Medicine; Visit Provider Orthopaedic Surgery
PROC: (CPT 27447; principal; 2020-05-11 07:30)
DX: M17.12 Unilateral primary osteoarthritis, left knee (principal); M76.891 Other specified enthesopathies of right lower limb, excluding foot; G89.18 Other acute postprocedural pain; E78.2 Mixed hyperlipidemia; D64.9 Anemia, unspecified; Z79.82 Long term (current) use of aspirin
CPT/HCPCS: 27447; 20610; 64447; 73560; 97161; A9270; C1713; C1776; J0171; J0690; J1040; J1100; J2250; J2270; J2405; J2704; J2795; J3010; J3301; J7120

== ENCOUNTER 2020-07-18 10:38 | Outpatient (CLI) | payer MEDICARE, OTHER, SELFPAY ==
[2020-07-18 12:24] LABS: Free T4 Free Thyroxine 0.81 ng/mL (0.78-2.19)
== END 2020-07-18 10:39 | disposition home or self-care (01) ==
PROVIDERS: PCP Family Medicine; Visit Provider Nurse Practitioner Family
DX: E03.9 Hypothyroidism, unspecified (principal); G73.7 Myopathy in diseases classified elsewhere
CPT/HCPCS: 36415; 84439; 84443

== ENCOUNTER 2020-09-13 08:55 | Outpatient (CLI) | payer MEDICARE, OTHER, SELFPAY ==
[2020-09-13 10:18] LABS: Free T4 Free Thyroxine 0.86 ng/mL (0.78-2.19)
== END 2020-09-13 08:56 | disposition home or self-care (01) ==
PROVIDERS: PCP Family Medicine; Visit Provider Nurse Practitioner Family
DX: E03.9 Hypothyroidism, unspecified (principal)
CPT/HCPCS: 36415; 84439; 84443

== ENCOUNTER 2021-02-08 06:51 | Outpatient (CLI) | payer MEDICARE, OTHER, SELFPAY ==
[2021-02-08 07:51] LABS: Basophils Percent Auto 0.6 % (0.2-1.2); Eosinophils Absolute Auto 0.2 K/mm3 (0-0.3); Eosinophils Percent Auto 4.3 % (0-4.4); Hematocrit 38.7 % (42.0-52.0); Hemoglobin 13.4 g/dL (14.0-18.0); Immature Granulocyte Absolute 0.01 K/mm3 (0.00-0.031); Immature Granulocyte Percent A 0.3 % (0-0.5); Lymphocytes Absolute Auto 0.86 K/mm3 (0.9-3.2); Lymphocytes Percent Auto 24.8 % (18.3-44.2); Mean Corpuscular HGB Conc 34.6 g/dl (32-36); Mean Corpuscular Hemoglobin 31.2 pg (26-34); Mean Corpuscular Volume 90.2 fl (80-100); Mean Platelet Volume 9.2 fl (7.4-10.4); Monocytes Absolute Auto 0.6 K/mm3 (0.1-0.6); Monocytes Percent Auto 16.1 % (2.6-8.5); Neutrophils Absolute Auto 1.9 K/mm3 (1.3-6.7); Neutrophils Percent Auto 53.9 % (45.5-73.1); Platelet Count Result 178 k/mm3 (150-375); Red Blood Count 4.29 M/mm3 (4.6-6.20); Red Cell Distribution Width 12.5 % (11.5-14.5); White Blood Count 3.5 K/mm3 (4.5-10.0)
[2021-02-08 08:09] LABS: Alanine Aminotransferase 20 U/L (4-50); Albumin Level 4.4 g/dL (3.5-5.1); Alkaline Phosphatase 72 U/L (38-126); Aspartate Amino Transferase 36 U/L (17-59); Bilirubin,Total 0.5 mg/dL (0.2-1.3); Cholesterol 231 mg/dL (0-200); HDL Direct 56 mg/dL; Triglycerides 84 mg/dL (<150)
[2021-02-08 08:19] LABS: Iron 88 ug/dL (49-181)
[2021-02-08 08:20] LABS: LDL Cholesterol Direct 130 mg/dL
[2021-02-08 08:29] LABS: Percent Iron Saturation 25 % (20-50)
[2021-02-08 08:35] LABS: Free T4 Free Thyroxine 1.21 ng/mL (0.78-2.19)
[2021-02-08 08:44] LABS: Prostate Specific Antigen 1.9 ng/mL (< OR = 4.0)
== END 2021-02-08 06:52 | disposition home or self-care (01) ==
PROVIDERS: PCP Family Medicine; Visit Provider Family Medicine
DX: Z12.5 Encounter for screening for malignant neoplasm of prostate (principal); E03.9 Hypothyroidism, unspecified; D64.9 Anemia, unspecified; E78.2 Mixed hyperlipidemia; Z13.220 Encounter for screening for lipoid disorders
CPT/HCPCS: 36415; 80061; 80076; 83540; 83550; 84153; 84439; 84443; 85025; G0103

== ENCOUNTER 2021-05-22 06:54 | Outpatient (CLI) | payer MEDICARE, OTHER, SELFPAY | END 2021-05-22 06:55 | disposition home or self-care (01) | LOC: ANHLAB 06:58 | PROVIDERS: PCP Family Medicine; Visit Provider Physician Assistant Medical | DX: E03.9 Hypothyroidism, unspecified (principal) | CPT/HCPCS: 36415; 84443 ==

== ENCOUNTER 2021-07-11 15:08 | Outpatient (CLI) | payer MEDICARE, OTHER, SELFPAY ==
[2021-07-11 17:54] LABS: T4 Thyroxine 7.41 ug/dL (5.53-11.0)
[2021-07-11 18:07] LABS: Total Triiodothyronine (T3) 0.93 NG/ML (0.97-1.69)
== END 2021-07-11 15:09 | disposition home or self-care (01) ==
PROVIDERS: PCP Family Medicine; Visit Provider Physician Assistant Medical
DX: E03.9 Hypothyroidism, unspecified (principal)
CPT/HCPCS: 36415; 84436; 84443; 84480

== ENCOUNTER 2021-12-18 06:48 | Outpatient (CLI) | payer MEDICARE, OTHER, SELFPAY ==
[2021-12-18 07:29] LABS: T4 Thyroxine 6.89 ug/dL (5.53-11.0)
== END 2021-12-18 06:49 | disposition home or self-care (01) ==
LOC: ANHLAB 06:51
PROVIDERS: PCP Family Medicine; Visit Provider Nurse Practitioner Family
DX: E03.9 Hypothyroidism, unspecified (principal); E78.2 Mixed hyperlipidemia
CPT/HCPCS: 36415; 84436; 84443

== ENCOUNTER 2022-02-07 07:12 | Outpatient (CLI) | payer MEDICARE, OTHER, SELFPAY ==
[2022-02-07 08:48] LABS: T4 Thyroxine 7.56 ug/dL (5.53-11.0)
== END 2022-02-07 07:13 | disposition home or self-care (01) ==
LOC: ANHLAB 07:15
PROVIDERS: PCP Family Medicine; Visit Provider Nurse Practitioner Family
DX: E03.9 Hypothyroidism, unspecified (principal); E78.2 Mixed hyperlipidemia
CPT/HCPCS: 36415; 84436; 84443

== ENCOUNTER 2022-02-12 06:46 | Outpatient (CLI) | payer MEDICARE, OTHER, SELFPAY ==
[2022-02-12 07:23] LABS: Hematocrit 38.1 % (42.0-52.0); Hemoglobin 12.9 g/dL (14.0-18.0); Mean Corpuscular HGB Conc 33.9 g/dl (32-36); Mean Corpuscular Hemoglobin 30.9 pg (26-34); Mean Corpuscular Volume 91.4 fl (80-100); Mean Platelet Volume 9.1 fl (7.4-10.4); Platelet Count Result 163 k/mm3 (150-375); Red Blood Count 4.17 M/mm3 (4.6-6.20); White Blood Count 2.9 K/mm3 (4.5-10.0)
[2022-02-12 09:43] LABS: Alanine Aminotransferase 26 U/L (6-50); Albumin Level 4.4 g/dL (3.5-5.1); Alkaline Phosphatase 73 U/L (38-126); Anion Gap 5 mmol/L (8-16); Aspartate Amino Transferase 48 U/L (17-59); Bilirubin,Total 0.5 mg/dL (0.2-1.3); Blood Urea Nitrogen 22 mg/dL (9-20); Calcium 9.2 mg/dL (8.4-10.2); Carbon Dioxide 29 mmol/L (22-30); Chloride 107 mmol/L (98-107); Cholesterol 231 mg/dL (0-200); Estimated Glomerular Filt Rate > 60; Glucose 97 mg/dL (65-110); HDL Direct 58 mg/dL; Potassium 4.3 mmol/L (3.4-5.0); Sodium 141 mmol/L (137-145); Triglycerides 75 mg/dL (<150)
[2022-02-12 09:54] LABS: LDL Cholesterol Direct 138 mg/dL
[2022-02-12 10:12] LABS: Prostate Specific Antigen 1.8 ng/mL (< OR = 4.0)
== END 2022-02-12 06:47 | disposition home or self-care (01) ==
LOC: ANHLAB 06:52
PROVIDERS: PCP Family Medicine; Visit Provider Nurse Practitioner Family
DX: R79.89 Other specified abnormal findings of blood chemistry (principal); E78.2 Mixed hyperlipidemia; D64.9 Anemia, unspecified; Z12.5 Encounter for screening for malignant neoplasm of prostate; Z96.652 Presence of left artificial knee joint
CPT/HCPCS: 36415; 80053; 80061; 84153; 85027; G0103

== ENCOUNTER 2022-06-13 15:46 | Outpatient (CLI) | payer MEDICARE, OTHER, SELFPAY ==
[2022-06-13 16:00] LABS: Basophils Percent Auto 0.4 % (0.2-1.2); Eosinophils Absolute Auto 0.1 K/mm3 (0-0.3); Eosinophils Percent Auto 2.7 % (0-4.4); Hematocrit 38.8 % (42.0-52.0); Hemoglobin 13.1 g/dL (14.0-18.0); Immature Granulocyte Absolute 0.02 K/mm3 (0.00-0.031); Immature Granulocyte Percent A 0.4 % (0-0.5); Lymphocytes Absolute Auto 1.04 K/mm3 (0.9-3.2); Mean Corpuscular HGB Conc 33.8 g/dl (32-36); Mean Corpuscular Hemoglobin 31.4 pg (26-34); Mean Platelet Volume 9.1 fl (7.4-10.4); Monocytes Absolute Auto 0.6 K/mm3 (0.1-0.6); Monocytes Percent Auto 11.2 % (2.6-8.5); Neutrophils Absolute Auto 3.4 K/mm3 (1.3-6.7); Neutrophils Percent Auto 65.3 % (45.5-73.1); Platelet Count Result 181 k/mm3 (150-375); Red Blood Count 4.17 M/mm3 (4.6-6.20); Red Cell Distribution Width 13.2 % (11.5-14.5); White Blood Count 5.2 K/mm3 (4.5-10.0)
[2022-06-13 16:45] LABS: Iron 69 ug/dL (49-181)
[2022-06-13 16:53] LABS: Alanine Aminotransferase 24 U/L (6-50); Albumin Level 4.5 g/dL (3.5-5.1); Alkaline Phosphatase 83 U/L (38-126); Anion Gap 5 mmol/L (8-16); Aspartate Amino Transferase 40 U/L (17-59); Bilirubin,Total 0.6 mg/dL (0.2-1.3); Blood Urea Nitrogen 15 mg/dL (9-20); Calcium 9.2 mg/dL (8.4-10.2); Carbon Dioxide 30 mmol/L (22-30); Chloride 104 mmol/L (98-107); Estimated Glomerular Filt Rate > 60; Glucose 96 mg/dL (65-110); Potassium 4.3 mmol/L (3.4-5.0); Sodium 139 mmol/L (137-145)
[2022-06-13 16:56] LABS: Percent Iron Saturation 19 % (20-50)
[2022-06-13 18:18] LABS: Folic Acid > 20.0 ng/mL (2.76->20)
[2022-06-18 09:03] LABS: Methylmalonic Acid 154 nmol/L (87-318)
== END 2022-06-13 15:47 | disposition home or self-care (01) ==
LOC: ANHLAB 15:48
PROVIDERS: PCP Family Medicine; Visit Provider Internal Medicine Hematology & Oncology
DX: D64.9 Anemia, unspecified (principal)
CPT/HCPCS: 36415; 80053; 82607; 82728; 82746; 83540; 83550; 83921; 84443; 85025

== ENCOUNTER 2022-06-27 08:22 | Outpatient (CLI) | payer MEDICARE, OTHER, SELFPAY ==
--- NOTE | ~2022-06-27 | US_ITS ---
Abdominal Sonogram: Real-time sonographic imaging of the abdomen was performed. Clinical History: Leukopenia Findings: The liver appears normal with no evidence of mass lesion or bile duct dilatation. Main por chong vein demonstrates normal direction of flow. The spleen is normal in size without evidence of foca l lesion. The gallbladder is well distended, and appears normal with no evidence of gallstone or wal l thickening. The common bile duct measures 6 mm. The visualized pancreas, aorta, and IVC are unrema rkable. The right kidney measures 10.2 cm in length and the left kidney measures 10.1 cm. There is no hydronephrosis or renal calculus. Impression: Unremarkable abdominal ultrasound. Reviewed, dictated and finalized at location . Impression: Unremarkable abdominal ultrasound.
== END 2022-06-27 08:23 | disposition home or self-care (01) ==
PROVIDERS: PCP Family Medicine; Visit Provider Internal Medicine Hematology & Oncology
DX: D72.819 Decreased white blood cell count, unspecified (principal)
CPT/HCPCS: 76700

== ENCOUNTER 2022-09-15 17:51 | Emergency (ER) | payer MEDICARE, OTHER, SELFPAY ==
--- NOTE | 2022-09-15 18:02 | ED.GENADULT ---
HPI - General Adult General Chief complaint: Skin/Abscess/Foreign Body Stated complaint: bee sting Time Seen by Provider: 09/15/22 18:02 Source: patient Mode of arrival: ambulatory Limitations: no limitations History of Present Illness HPI narrative: 72-year-old male patient presents to the [facility] with complaints of multiple bee stings about 2-3 hours ago. Patient states he is allergic to bees and when to come and get checked out. Patient states he does have an EpiPen because 25 years ago when he was stung multiple times he had breathing problems. Patient denies taking his EpiPen prior to arrival. Denies taking any Benadryl prior to arrival. Denies any complaints of chest pain or shortness of breath, throat pain or closing of the throat at this time. Patient states he was stung multiple times by what he thinks might have been these are yellow jackets to the right hand, left knee multiple places to the left hip and multiple places to the back. Related Data Allergies Allergy/AdvReac Type Severity Reaction Status Date / Time bee venom protein (honey bee) Allergy Severe Swelling Verified 09/15/22 18:07 Review of Systems Review of Systems: CONSTITUTIONAL: Denies fever, chills, or sweats. EYES: Denies visual changes, redness, or discharge. ENT: Denies rhinorrhea, congestion, sore throat, or otalgia. CARDIOVASCULAR: Denies chest pain, palpitations, or edema. RESPIRATORY: Denies cough or dyspnea. GASTROINTESTINAL: Denies abdominal pain, nausea, vomiting, or diarrhea. GENITOURINARY: Denies dysuria or hematuria. SKIN: Positive bee sting/ rash with itching. MUSCULOSKELETAL: Denies back pain, joint pain, or myalgia. NEUROLOGIC: Denies headache, numbness, or weakness. PSYCHIATRIC: Denies anxiety or depression. [facility] Past Medical History Medical History Anemia Arthritis Bilateral primary osteoarthritis of knee BMI 25.0-25.9,adult Dry mouth Effusion of left knee History of cancer tounge Male erectile dysfunction, unspecified Memory loss Mixed hyperlipidemia Screening PSA (prostate specific antigen) Surgical History Surgical History History of left knee replacement History of lymph node excision right side of neck History of right knee joint replacement Presence of left artificial knee joint Family History Family History Father Cerebrovascular accident Mother No problems noted. Sibling No problems noted. Other Family history of arthritis Social History Social History Smoking status: Never smoker Additional smoking assessment comments: DENIES ANY FORM OF TOBACCO USE Alcohol intake: current Drinks per week: 6 Alcohol use details: 4-5 per week Substance use: never Living arrangements: with family Gender identity (if verbalized by the patient): Male Spiritual care concerns: No Comments At the time of my signature I agree with nursing past medical history, surgical, social, and family history. There is no relevant family history pertinent to the presenting complaint. Exam Narrative: GENERAL: Well-appearing, well-nourished, and in no acute distress. HEAD: Normocephalic, atraumatic. EYES: PERRLA and EOMI. ENT: Nares clear, no rhinorrhea or epistaxis. Mucous membranes moist. Posterior pharynx with no erythema, tonsillar enlargement. NECK: Supple. No lymphadenopathy . No stridor noted on auscultation. CHEST: Clear to auscultation. No respiratory distress. Patient able talk in clear complete sentences. HEART: Regular rate and rhythm. No murmur heard. Normal peripheral pulses. ABDOMEN: Soft, nontender, nondistended, normal active bowel sounds. EXTREMITIES: Normal range of motion. No edema. SKIN: Warm, dry, no rash. patient does have bee stings with surrounding
[2022-09-15 18:03] VITALS: BP 139/96; PULSE 83; RESP 18; TEMP 36.9; O2SAT 100
[2022-09-15] MEDS: diphenhydrAMINE HCl CAP 25 MG CAPSULE 50 MG PO (18:14)
== END 2022-09-15 18:15 | disposition home or self-care (01) ==
PROVIDERS: Emergency Provider Nurse Practitioner Family; PCP Family Medicine
DX: T63.441A Toxic effect of venom of bees, accidental (unintentional), initial encounter (principal); M17.0 Bilateral primary osteoarthritis of knee; E78.2 Mixed hyperlipidemia; Z96.653 Presence of artificial knee joint, bilateral; Z85.810 Personal history of malignant neoplasm of tongue
CPT/HCPCS: 99213; A9270; G0463

== ENCOUNTER 2022-10-02 11:05 | Emergency (ER) | payer MEDICARE, OTHER, SELFPAY ==
--- NOTE | ~2022-10-02 | XR_ITS ---
EXAMINATION: XR hand RT min 3V DATE: 10/02/2022 11:32 INDICATION: Puncture wound lipoma the right hand TECHNIQUE: Posteroanterior, oblique and lateral views of the right hand were obtained. COMPARISON: 10/29/2012 FINDINGS: There is a large metallic ring which obscures the diaphysis of the right fourth proximal phalanx. Ali gnment is normal. No fracture. Minimal progression polyarticular osteoarthritis, now severe at the mi dcarpal, triscaphe and first carpometacarpal joints, moderate severity at the distal radioulnar, firs t interphalangeal and of the distal interphalangeal joints and mild at the wrist, metacarpophalangeal and proximal interphalangeal joints. Prominent degenerative cystic change at the distal ulna and bas e of the first metacarpal. No radiopaque foreign bodies. IMPRESSION: 1. No radiopaque foreign bodies or acute osseous abnormality. 2. Moderate to severe polyarticular osteoarthritis with typical distribution. Reviewed, dictated and finalized at location A.
--- NOTE | 2022-10-02 11:07 | ED.WOUNDLAC ---
HPI - Wound/Laceration General Chief Complaint: Wound/Laceration Stated Complaint: Cut Rt Hand Time Seen by Provider: 10/02/22 11:07 Source: patient Mode of arrival: ambulatory Limitations: no limitations History of Present Illness HPI narrative: Mr. Jarrell is a 72-year-old male patient presenting to the clinic today with complaints a right hand injury/puncture wound He reports he fell approximately 6:00 last night injuring the right hand. States the hand was punctured by a sprinkler. Has a small puncture wound to the lower mid palm. Is unable to fully grasp/product director normally due to pain and swelling. Has been oozing some clear bloody fluid today. Unsure of how deep the puncture wound is. Mild redness and swelling around puncture wound. Last tetanus was in 2019. Related Data Allergies Allergy/AdvReac Type Severity Reaction Status Date / Time bee venom protein (honey bee) Allergy Severe Swelling Verified 09/15/22 18:07 codeine Allergy Unknown Verified 09/15/22 18:20 Review of Systems Review of Systems: Pertinent positives per HPI. Patient denies any fever, chills, rash, headache, visual changes, dizziness, cough, runny nose, sore throat, shortness of breath, chest pain, palpitations, nausea, vomiting, diarrhea, constipation, abdominal pain, or any urinary issues. [facility] Past Medical History Medical History Anemia Arthritis Bilateral primary osteoarthritis of knee BMI 25.0-25.9,adult Dry mouth Effusion of left knee History of cancer tounge Male erectile dysfunction, unspecified Memory loss Mixed hyperlipidemia Screening PSA (prostate specific antigen) Surgical History Surgical History History of left knee replacement History of lymph node excision right side of neck History of right knee joint replacement Presence of left artificial knee joint Family History Family History Father Cerebrovascular accident Mother No problems noted. Sibling No problems noted. Other Family history of arthritis Social History Social History Smoking status: Never smoker Additional smoking assessment comments: DENIES ANY FORM OF TOBACCO USE Alcohol intake: current Drinks per week: 6 Alcohol use details: 4-5 per week Substance use: never Living arrangements: with family Gender identity (if verbalized by the patient): Male Spiritual care concerns: No Comments At the time of my signature, I reviewed and agree with the nursing past medical, surgical, social, and family history. There is no relevant family history pertinent to the patient complaint. Exam Narrative: General: Well-developed, well nourished, in no apparent distress Head: Normocephalic, atraumatic. Cardio: Regular rate and rhythm, s1 and s2 normal, no murmur appreciated. Resp: Clear to auscultation bilaterally, no rhonchi, rales, wheezing or rubs. Musculoskeletal: No deformity, 0.2cm puncture wound to the mid proximal palm, tender to palpation around puncture site with localized redness/swelling, weaker product director when compared to left hand, grossly normal range of motion, peripheral pulse strong, no edema, no cyanosis, normal gait and station Course Course Emergency Course: Portions of this record may have been created with voice recognition software. Level of Care: Express Care Visit Vital Signs Vital signs: Vital signs reviewed MDM - Wound/Laceration MDM Narrative Medical decision making narrative: At the time of visit patient is resting comfortably on the exam table. X-ray of the right hand was performed and negative for any sign of fracture, malalignment, or foreign body. Patient is wearing a class ring on his right 4th finger. Recommend taking this off as his finge
[2022-10-02 11:14] VITALS: BP 114/71; PULSE 57; RESP 16; TEMP 36.7; O2SAT 99
== END 2022-10-02 11:50 | disposition home or self-care (01) ==
LOC: EXPTROY 11:11
PROVIDERS: Emergency Provider Nurse Practitioner Family; PCP Family Medicine
DX: S61.431A Puncture wound without foreign body of right hand, initial encounter (principal); W19.XXXA Unspecified fall, initial encounter; M19.041 Primary osteoarthritis, right hand; E78.2 Mixed hyperlipidemia; Z96.653 Presence of artificial knee joint, bilateral; M17.0 Bilateral primary osteoarthritis of knee; Z85.810 Personal history of malignant neoplasm of tongue
CPT/HCPCS: 73130; 99213; G0463

== ENCOUNTER 2022-11-28 15:41 | Emergency (ER) | payer MEDICARE, OTHER, SELFPAY ==
--- NOTE | ~2022-11-28 | XR_ITS ---
XR elbow RT min 3V DATE: 11/28/2022 16:13 INDICATION: Pain and swelling posterior right elbow TECHNIQUE: 4 views COMPARISON: None FINDINGS: Prominent dorsal soft tissue swelling at the elbow and proximal forearm. Prominent coronoid process spur of proximal ulna. Joint spaces appear relatively well-preserved. No fracture or dislocation or joint effusion. No periosteal reaction or bone destruction. IMPRESSION: Prominent dorsal soft tissue swelling Prominent coronoid process spur No fracture or dislocation or joint effusion or bone destruction Reviewed, dictated and finalized at location A.
[2022-11-28 15:55] VITALS: BP 118/74; PULSE 78; RESP 16; TEMP 37.1; O2SAT 99
--- NOTE | 2022-11-28 16:02 | ED.SKABFB ---
HPI - Skin/Abscess/Foreign Bdy General Chief complaint: Wound/Laceration Stated complaint: lt elbow numbness Time Seen by Provider: 11/28/22 16:02 Source: patient Mode of arrival: ambulatory Limitations: no limitations History of Present Illness HPI narrative: 72-year-old male presents with complaint of redness, swelling to right elbow extending down into right forearm for the past several days. Patient reports that he was rolling a large log from a tree. Scraped up his right elbow approximately 3 weeks ago. Afebrile. Range of motion intact to right elbow. All systems reviewed and negative except as noted above. Related Data Allergies Allergy/AdvReac Type Severity Reaction Status Date / Time bee venom protein (honey bee) Allergy Severe Swelling Verified 11/28/22 16:03 codeine Allergy Unknown Verified 11/28/22 16:03 Review of Systems Review of Systems: CONSTITUTIONAL: Denies fever, chills, or sweats. EYES: Denies visual changes, redness, or discharge. ENT: Denies rhinorrhea, congestion, sore throat, or otalgia. CARDIOVASCULAR: Denies chest pain, palpitations, or edema. RESPIRATORY: Denies cough or dyspnea. GASTROINTESTINAL: Denies abdominal pain, nausea, vomiting, or diarrhea. GENITOURINARY: Denies dysuria or hematuria. SKIN: Reports redness, swelling, pain to right elbow. MUSCULOSKELETAL: Denies back pain, joint pain, or myalgia. NEUROLOGIC: Denies headache, numbness, or weakness. PSYCHIATRIC: Denies anxiety or depression. All other systems reviewed are negative, except as documented in HPI. [facility] Past Medical History Medical History Anemia Arthritis Bilateral primary osteoarthritis of knee BMI 25.0-25.9,adult Dry mouth Effusion of left knee History of cancer tounge Male erectile dysfunction, unspecified Memory loss Mixed hyperlipidemia Screening PSA (prostate specific antigen) Surgical History Surgical History History of left knee replacement History of lymph node excision right side of neck History of right knee joint replacement Presence of left artificial knee joint Family History Family History Father Cerebrovascular accident Mother No problems noted. Sibling No problems noted. Other Family history of arthritis Social History Social History Smoking status: Never smoker Additional smoking assessment comments: DENIES ANY FORM OF TOBACCO USE Alcohol intake: current Drinks per week: 6 Alcohol use details: 4-5 per week Substance use: never Living arrangements: with family Gender identity (if verbalized by the patient): Male Spiritual care concerns: No Comments At time of signature, agree with nursing past medical, surgical, social and family history. There is no relevant family history pertinent to the presenting complaint. Exam Narrative: GENERAL: This is a well-nourished, well-developed patient, in no apparent distress. HEAD: normocephalic, atraumatic. EYES: PERRL. Sclera clear/white. Vision is grossly intact. EARS: External ears normal NOSE: External nose normal NECK: Neck supple, non-tender without lymphadenopathy, masses or thyromegaly. CARDIOVASCULAR: Regular rate and rhythm without murmurs, gallops, or rubs. RESPIRATORY: Clear to auscultation. Breath sounds equal bilaterally. No wheezes, rales, or rhonchi. SKIN: warm, Dry,with no suspicious lesions or rash, good texture and turgor. Several scabs/ abrasions to right elbow. There is fluctuance to right elbow with redness, warmth extending down into right forearm. NEURO: awake, alert, and oriented to person, place and time. There were no obvious focal neurologic abnormalities. EXTREMITIES: No joint tenderness, effusion, or edema noted. Course
== END 2022-11-28 16:36 | disposition short-term general hospital (02) ==
PROVIDERS: Emergency Provider Nurse Practitioner Family; PCP Family Medicine
DX: L03.113 Cellulitis of right upper limb (principal); M19.90 Unspecified osteoarthritis, unspecified site; M17.0 Bilateral primary osteoarthritis of knee; E78.2 Mixed hyperlipidemia; Z85.810 Personal history of malignant neoplasm of tongue
CPT/HCPCS: 73080; 99213; G0463

== ENCOUNTER 2022-11-28 16:46 | Inpatient (IN) | payer MEDICARE, OTHER, SELFPAY ==
[2022-11-28 17:19] VITALS: BP 170/93; PULSE 80; RESP 16; TEMP 37.6; O2SAT 100
[2022-11-28 17:41] LABS: Basophils Percent Auto 0.4 % (0.2-1.2); Eosinophils Percent Auto 0.5 % (0-4.4); Hematocrit 38.6 % (42.0-52.0); Hemoglobin 13.1 g/dL (14.0-18.0); Immature Granulocyte Absolute 0.02 K/mm3 (0.00-0.031); Immature Granulocyte Percent A 0.3 % (0-0.5); Lymphocytes Absolute Auto 0.89 K/mm3 (0.9-3.2); Lymphocytes Percent Auto 11.8 % (18.3-44.2); Mean Corpuscular HGB Conc 33.9 g/dl (32-36); Mean Corpuscular Hemoglobin 31.6 pg (26-34); Mean Corpuscular Volume 93.2 fl (80-100); Mean Platelet Volume 8.9 fl (7.4-10.4); Monocytes Absolute Auto 0.7 K/mm3 (0.1-0.6); Monocytes Percent Auto 9.6 % (2.6-8.5); Neutrophils Absolute Auto 5.8 K/mm3 (1.3-6.7); Neutrophils Percent Auto 77.4 % (45.5-73.1); Platelet Count Result 184 k/mm3 (150-375); Red Blood Count 4.14 M/mm3 (4.6-6.20); Red Cell Distribution Width 13.3 % (11.5-14.5); White Blood Count 7.5 K/mm3 (4.5-10.0)
[2022-11-28 17:53] LABS: Anion Gap 5 mmol/L (8-16); Blood Urea Nitrogen 17 mg/dL (9-20); Calcium 9.1 mg/dL (8.4-10.2); Carbon Dioxide 31 mmol/L (22-30); Chloride 101 mmol/L (98-107); Estimated CRCL calculation 56 ml/min; Estimated Glomerular Filt Rate > 60; Glucose 93 mg/dL (65-110); Potassium 4.2 mmol/L (3.4-5.0); Sodium 137 mmol/L (137-145)
--- NOTE | 2022-11-28 20:41 | ED.EXTPRO ---
HPI - Extremity Problem General Chief complaint: Extremity Problem,Nontraumatic <Sayda Bradshaw PA-C - Last Filed: 11/28/22 22:44> Stated complaint: swollen elbow, redness, pain <Sayda Bradshaw PA-C - Last Filed: 11/28/22 22:44> Time Seen by Provider: 11/28/22 20:32 <Sayda Bradshaw PA-C - Last Filed: 11/28/22 22:44> Source: patient <Sayda Bradshaw PA-C - Last Filed: 11/28/22 22:44> Mode of arrival: ambulatory <SISI Lazaro Last Filed: 11/28/22 22:44> Limitations: no limitations <Sayda Bradshaw PA-C - Last Filed: 11/28/22 22:44> History of Present Illness HPI Narrative: This is a 72 year old male that presents to the ER for right elbow redness and swelling. Reports he scraped his elbow a couple weeks ago. Reports he noted a lump to the area since. Reports today the area started to become more red and swollen. He was seen at urgent care and sent in for further evaluation. Denies fever or decreased ROM. <Sayda Bradshaw PA-C - Last Filed: 11/28/22 22:44> Related Data Allergies/Adverse reactions: Allergies Allergy/AdvReac Type Severity Reaction Status Date / Time bee venom protein (honey bee) Allergy Severe Swelling Verified 11/28/22 21:00 codeine Allergy Unknown Verified 11/28/22 21:00 <SISI Lazaro Last Filed: 11/28/22 22:44> Review of Systems Review of Systems: CONSTITUTIONAL: Denies fever SKIN: Reports redness MUSCULOSKELETAL: Reports joint pain, and myalgia. NEUROLOGIC: Denies numbness <SISI Lazaro Last Filed: 11/28/22 22:44> All systems reviewed & are unremarkable except as noted in HPI and below <SISI Lazaro Last Filed: 11/28/22 22:44> [facility] Past Medical History Medical History: Medical History Anemia Arthritis Bilateral primary osteoarthritis of knee BMI 25.0-25.9,adult Dry mouth Effusion of left knee History of cancer tounge Male erectile dysfunction, unspecified Memory loss Mixed hyperlipidemia Screening PSA (prostate specific antigen) <Sayda Bradshaw PA-C - Last Filed: 11/28/22 22:44> Surgical History Surgical History: Surgical History History of left knee replacement History of lymph node excision right side of neck History of right knee joint replacement Presence of left artificial knee joint <SISI Lazaro Last Filed: 11/28/22 22:44> Family History Family History: Family History Father Cerebrovascular accident Mother No problems noted. Sibling No problems noted. Other Family history of arthritis <SISI Lazaro Last Filed: 11/28/22 22:44> Social History Social History: Social History Smoking status: Never smoker Additional smoking assessment comments: DENIES ANY FORM OF TOBACCO USE Alcohol intake: current Drinks per week: 6 Alcohol use details: 4-5 per week Substance use: never Living arrangements: with family Gender identity (if verbalized by the patient): Male Spiritual care concerns: No <SISI Lazaro Last Filed: 11/28/22 22:44> Exam Narrative: GENERAL: Well-appearing, well-nourished, and in no acute distress. HEAD: Normocephalic, atraumatic. EYES: EOMI. CHEST: No respiratory distress. HEART: Regular rate EXTREMITIES: Normal range of motion. Moderate edema about the right elbow bursa with redness extending into the forearm. Normal radial pu SKIN: Warm, dry, no rash. NEURO: No focal deficits. Alert and oriented x3. PSYCH: Normal mood and affect <SISI Lazaro Last Filed: 11/28/22 22:44> Course Course Emergency Course: Due to rapid progression of his symptoms I did recommend he be admitted for further management. Pa
[2022-11-28 20:51] VITALS: BP 142/87; PULSE 68; RESP 18; O2SAT 100
[2022-11-28 21:00] VITALS: BP 142/87; PULSE 75; RESP 18; O2SAT 100
[2022-11-28 22:08] VITALS: BP 126/78; PULSE 65; RESP 18; O2SAT 100
[2022-11-28 22:33] LABS: CRP 3.1 mg/dL (<1.0)
[2022-11-28 22:40] LABS: Erythrocyte Sedimentation Rate 40 mm/hr (0-20)
--- NOTE | 2022-11-28 23:10 | PM.IMHP ---
H&P: HPI History of Present Illness Date/Time: 11/28/22 23:10 Chief Complaint: patient combative ER for evaluation with complaints of pain and swelling in the right elbow Narrative: 72 years old white male who is in good health, is complaining of redness and swelling in the right elbow extending down into right arm for the last few days. He says he was rolling a large log from a tree 3 weeks ago when he scraped his elbow, which is slowly getting worse. He went to the urgent care who sent him to the emergency room. Workup was done which showed septic bursitis of the right elbow. Orthopedics was consulted, antibiotic initiated and he is being admitted for further medical management Review of Systems Review of Systems: he denies any chest pain, palpitation, fever rigor chills, nausea vomiting, dizziness or loss of consciousness All systems reviewed & are unremarkable except as noted in HPI and below PMFSH Past Medical History Medical History Anemia Arthritis Bilateral primary osteoarthritis of knee BMI 25.0-25.9,adult Dry mouth Effusion of left knee History of cancer tounge Male erectile dysfunction, unspecified Memory loss Mixed hyperlipidemia Screening PSA (prostate specific antigen) Surgical History Surgical History History of left knee replacement History of lymph node excision right side of neck History of right knee joint replacement Presence of left artificial knee joint Family History Family History Father Family history of arthritis Mother No problems noted. Sibling No problems noted. Other Cerebrovascular accident Social History Social History Smoking status: Never smoker Additional smoking assessment comments: DENIES ANY FORM OF TOBACCO USE Alcohol intake: current Drinks per week: 3 Alcohol use details: 4-5 per week Substance use: never Substance use type: does not use Lack of Transportation: No Lack of Food: Never True Current Housing: I Have Housing Concerned About Future Housing: No Difficulty Paying Gas/Electric Bills: No Difficulty Paying for Meds: No Currently Unemployed: No Education: Master's Degree or Higher Difficulty w/ Childcare or Family Care: No Living arrangements: with family Gender identity (if verbalized by the patient): Male Spiritual care concerns: No Meds Home Medications and Allergies Home Medications Medication Instructions Recorded Confirmed Type epinephrine 0.3 mg/0.3 mL 0.3 mg (0.3 mL) IM ONCE allergic 11/30/21 11/28/22 Rx injection, auto-injector (EpiPen reaction #2 [id number]) levothyroxine 112 mcg tablet 112 mcg PO DAILY #90 tabs 10/15/22 11/28/22 Rx meloxicam 15 mg tablet 15 mg PO QAM #90 tabs 10/15/22 11/28/22 Rx multivitamin with minerals-folic 1 tablet PO DAILY 11/28/22 11/28/22 History acid 0.4 mg tablet Allergies Allergy/AdvReac Type Severity Reaction Status Date / Time bee venom protein (honey bee) Allergy Severe Swelling Verified 11/28/22 21:00 codeine Allergy Unknown Verified 11/28/22 21:00 Vital Signs Vital Signs - 24 hr 11/28/22 17:19 11/28/22 20:51 11/28/22 21:00 Temperature 37.6 C Pulse Rate 80 68 75 Respiratory Rate 16 18 18 Blood Pressure 170/93 H 142/87 H 142/87 H Pulse Oximetry 100 100 100 Oxygen Delivery Room Air Room Air 11/28/22 22:08 Temperature Pulse Rate 65 Respiratory Rate 18 Blood Pressure 126/78 Pulse Oximetry 100 Oxygen Delivery Exam Narrative: PHYSICAL EXAMINATION: Vital signs: Please see the chart General physical exam: well nourished man, appears younger than his stated age, no acute distress Head/eyes: Atraumatic, EOMI, PERRLA ENT: Moist mucous membranes, nasal passages clear Neck: Supple, full range of motion, tr
[2022-11-28 23:13] LABS: Crystals Synovial Fluid None Seen (None Seen)
[2022-11-28 23:23] VITALS: BP 127/82; PULSE 71; O2SAT 100
[2022-11-28 23:31] LABS: Appearance Synovial Fluid Clear (Clear); Color Synovial Fluid Yellow (Colorless); Nucleated Cell Synovial Fluid 1937 /uL (0-200); RBC Synovial Fluid 1000 /uL (0-0); Source Synovial Fluid Synovial fluid
[2022-11-28 23:36] LABS: Lymphocytes Synovial Fluid 1 %; Macrophages Synovial Fluid 4 %; Neutrophils Synovial Fluid 95 % (0-25)
--- NOTE | 2022-11-28 23:38 | ADMGEN ---
This patient, Curt Jarrell, was admitted to Medical Room 252-01. Patient/family oriented to hospital policies and general routines including ID bracelet, bed and alarms, visiting hours, pain management, procedures, bathroom and other care routines, personal items, smoking policy, room service/diet, and visiting hours. Information on how to activate the Rapid Response Team has been discussed. Patient/Family are encouraged to report perceived risks to care and to ask questions if they do not understand what they are told or what they should do.
[2022-11-28 23:39] VITALS: BP 143/78; PULSE 67; RESP 18; TEMP 36.7; O2SAT 100
[2022-11-28 23:47] VITALS: BMI 24.1
[2022-11-29] MEDS: MORPHINE SULFATE (*CRX) 2 MG/ML INJ IV PUSH (01:02)
[2022-11-29] MEDS: SODIUM CHLORIDE 0.9% IV 1,000 ML 100 ML IV CONT ×2 (06:37→16:26)
[2022-11-29] MEDS: LEVOTHYROXINE SODIUM 112 MCG TABLET PO (06:38)
[2022-11-29] MEDS: MELOXICAM 7.5 MG TABLET 15 MG PO (08:12)
[2022-11-29] MEDS: THERAPEUTIC MULTIVITAMINS/MINERALS TAB (*BKC) 1 TABLET PO (08:13)
[2022-11-29 08:15] VITALS: RESP 18; O2SAT 100
--- NOTE | 2022-11-29 08:54 | PM.CNOR ---
Assessment and Plan Assessment and plan (1) Septic bursitis of elbow: Qualifiers: Laterality: right Qualified Code(s): M71.121 - Other infective bursitis, right elbow Code(s): M71.129 - Other infective bursitis, unspecified elbow Status: Acute Assessment and Plan: History, exam and radiographs reviewed with the patient. Radiographs of the right elbow reveal dorsal soft tissue swelling, no evidence of joint effusion or bone destruction. Radiographs of the right hand without signs of osteomyelitis, osteoarthritis noted. Right elbow aspirate from ED with preliminary cultures reveal gram positive cocci in pairs, Condition, nature, etiology and course of natural history discussed. Conservative and operative treatment options reviewed as well as the risks and benefits of both. Risks of poor wound healing with I&D of right elbow discussed. Reviewed surgical indications with consulted physician and attending MD, Dr. Cates. Advises against surgical debridement at this time. Recommends continued IV antibiotics for 36 to 48 hours. Hopeful transition to oral antibiotics prior to discharge pending sensitives and clinical improvement with IV antibiotics. Blood cultures to be obtained. Weight bearing as tolerated. Pain control. Monitor erythema. Will continue to follow. Plan Reviewed assessment, labs, current culture results and intended plan of care with attending MD, Dr. Shah who agrees with plans as indicated above. No further recommendations at this time. History of Present Illness HPI Consult date: 11/29/22 Chief complaint: Right Elbow Septic Bursitis Narrative: 72 year old male admitted with infected right elbow bursitis. Patient reports having worked on trees approximately three weeks ago when he scraped his elbow. He noted a small fluctuance or cyst on the elbow prior to that which was chronic in nature, no previous treatment. Over the last several days the right elbow pain, swelling and redness had worsened. This prompted his arrival to the ED. He does denies fever, chills, night sweats, nausea, vomiting or diarrhea. Aspiration performed in the ED with a STAT gram stain revealing many WBCs with no organism. Cultures pending. Patient admitted for orthopedic consult, IV antibiotics and medical management. Orthopedic consult requested by ER MD. Review of Systems Constitutional: Constitutional: Reports no additional constitutional complaints, Denies excessive sweating, Denies fever(s) and Denies weight gain Eyes: Eyes: Reports no additional eye complaints and Denies change in vision ENT: Reports system reviewed and no additional complaints, except as documented and Reports Normal hearing present Cardiovascular: Cardiovascular: Denies chest pain, Denies diaphoresis, Denies leg ulcers and Denies dyspnea on exertion Respiratory: Respiratory: Reports no additional respiratory complaints, Denies cough and Denies dyspnea on exertion Gastrointestinal: Gastrointestinal: Reports no additional gastrointestinal complaints, Denies abdominal pain, Denies constipation, Denies nausea and Denies vomiting Genitourinary: Genitourinary: Reports no additional male genitourinary complaints, Denies hematuria and Denies urinary frequency Musculoskeletal: Musculoskeletal: Reports no additional musculoskeletal complaints and Reports as per HPI Neurologic: Reports Normal hearing present Endocrine: Endocrine: Reports no additional endocrine complaints, Denies change in body appearance, Denies excessive sweating, Denies polyphagia, Denies polydipsia and Denies polyuria [facility] Past Medical History Medical History (Updated 11/29/22 @ 09:31 by REBEKA Montenegro) Anemia Arthritis Bilateral primary osteoarthritis of knee BMI 25.0-25.9,adult DJD of left shoulder Dry mouth Effusion of left knee History of cancer tounge Male erectile dysfunction, unspecified Memory loss Mixed hyperlipidemia Screening PSA (prostate specific
[2022-11-29 10:10] VITALS: BP 136/70; PULSE 71; RESP 16; TEMP 36.2; O2SAT 97
--- NOTE | 2022-11-29 10:38 | PM.IMPN ---
Progress Note: A&P Assessment and Plan (1) Septic bursitis of elbow: Qualifiers: Laterality: right Qualified Code(s): M71.121 - Other infective bursitis, right elbow Code(s): M71.129 - Other infective bursitis, unspecified elbow Status: Acute Assessment and Plan: Improving with IV antibiotics (2) Hypothyroid: Qualifiers: Hypothyroidism type: acquired Qualified Code(s): E03.9 - Hypothyroidism, unspecified Code(s): E03.9 - Hypothyroidism, unspecified Status: Acute (3) Total knee replacement status: Qualifiers: Laterality: left Qualified Code(s): Z96.652 - Presence of left artificial knee joint Code(s): Z96.659 - Presence of unspecified artificial knee joint Status: Acute Assessment and Plan: No swelling or signs of infection (4) Anemia: Qualifiers: Anemia type: unspecified type Qualified Code(s): D64.9 - Anemia, unspecified Code(s): D64.9 - Anemia, unspecified Status: Acute Assessment and Plan: Stable (5) Mixed hyperlipidemia: Code(s): E78.2 - Mixed hyperlipidemia Status: Acute Assessment and Plan: Stable (6) Polyosteoarthritis, unspecified: Code(s): M15.9 - Polyosteoarthritis, unspecified Status: Acute Assessment and Plan: osteoarthritis, stable, only right elbow affected with this infection, full ROM without pain or joint effusion Plan Patient has been evaluated by Orthopedic surgery, conservative management recommended. IV antibiotics escalated and expect patient to discharged on oral antibiotics Time Spent With Patient Time with patient: 25 - 35 minutes Subjective Date/time seen: 11/29/22 10:38 Interval history: Patient reports improvement in swelling of the right arm and elbow. He reports the redness that was extending down to his hand has already cleared up. Patient was seen by Orthopedics and an operation is likely to lead to delayed healing, Plan IV antibiotics for 36-48 hours. Aspirate is growing gram positive cocci in pairs. Will escalate Rocephin to 2 g every 24 hours and plan DC tomorrow on oral antibiotics targeting likely Strep species. Review of Systems Review of Systems: he denies any chest pain, palpitation, fever rigor chills, nausea vomiting, dizziness or loss of consciousness All systems reviewed & are unremarkable except as noted in HPI and below Exam Narrative: PHYSICAL EXAMINATION: General physical exam: well nourished man, appears younger than his stated age, no acute distress Head/eyes: Atraumatic, EOMI, PERRLA ENT: Moist mucous membranes, nasal passages clear Neck: Supple, full range of motion, trachea midline CVS: S1 + S2, regular rate and rhythm, no murmurs Respiratory: Bilaterally clear to auscultation, symmetric chest expansion, no distress Abdomen: Soft, non-tender, bowel sounds positive, no organomegaly Extremities: No clubbing, no cyanosis, ++ swelling/ erythema over right elbow, no calf tenderness. full range of motion right elbow without antecubital tenderness or anterior swelling, erythema already improved per patient report Musculoskeletal: Moves all, adequate range of motion, no muscle spasms Skin: Warm, dry, no jaundice, no cyanosis Neurological: Awake, alert, oriented x 3, cranial nerves II-XII intact, no focal neurological deficits Psychiatric: Normal mood, normal affect Objective Data Vital Signs Vital Signs: Vital Signs - 24 hr 11/28/22 17:19 11/28/22 20:51 11/28/22 21:00 Temperature 37.6 C Pulse Rate 80 68 75 Respiratory Rate 16 18 18 Blood Pressure 170/93 H 142/87 H 142/87 H Pulse Oximetry 100 100 100 Oxygen Delivery Room Air Room Air 11/28/22 22:08 11/28/22 23:23 11/28/22 23:39 Temperature 36.7 C Pulse Rate 65 71 67 Respiratory Rate 18 18 Blood Pressure 126/78 127/82 143/78 H Pulse Oximetry 100 100 100 Oxygen Delivery 11/29/22 00:23 11/29/22 08:15 11/29/22
--- NOTE | 2022-11-29 11:27 | PC.NURSE ---
On 11/29/22, the student, [Curt Barron], provided care and completed [facility] documentation on this patient. I have reviewed the student's documentation and agree with the findings.
[2022-11-29 14:15] VITALS: BP 116/64; PULSE 71; RESP 18; TEMP 36.6; O2SAT 100
[2022-11-29 20:00] VITALS: BP 119/67; PULSE 73; RESP 16; TEMP 37.2; O2SAT 99
[2022-11-30] VITALS: BP 94/62; PULSE 74; RESP 16; TEMP 37.6; O2SAT 98
[2022-11-30 04:00] VITALS: BP 112/63; PULSE 75; RESP 16; TEMP 36.6; O2SAT 100
[2022-11-30] MEDS: SODIUM CHLORIDE 0.9% IV 1,000 ML 100 ML IV CONT (04:40)
[2022-11-30 06:05] LABS: Basophils Percent Auto 0.4 % (0.2-1.2); Eosinophils Absolute Auto 0.1 K/mm3 (0-0.3); Eosinophils Percent Auto 1.9 % (0-4.4); Hematocrit 37.5 % (42.0-52.0); Hemoglobin 12.2 g/dL (14.0-18.0); Immature Granulocyte Absolute 0.02 K/mm3 (0.00-0.031); Immature Granulocyte Percent A 0.4 % (0-0.5); Lymphocytes Absolute Auto 0.83 K/mm3 (0.9-3.2); Lymphocytes Percent Auto 15.7 % (18.3-44.2); Mean Corpuscular HGB Conc 32.5 g/dl (32-36); Mean Corpuscular Hemoglobin 31.5 pg (26-34); Mean Corpuscular Volume 96.9 fl (80-100); Mean Platelet Volume 9.3 fl (7.4-10.4); Monocytes Absolute Auto 0.7 K/mm3 (0.1-0.6); Monocytes Percent Auto 13.2 % (2.6-8.5); Neutrophils Absolute Auto 3.6 K/mm3 (1.3-6.7); Neutrophils Percent Auto 68.4 % (45.5-73.1); Platelet Count Result 145 k/mm3 (150-375); Red Blood Count 3.87 M/mm3 (4.6-6.20); Red Cell Distribution Width 13.6 % (11.5-14.5); White Blood Count 5.3 K/mm3 (4.5-10.0)
[2022-11-30] MEDS: LEVOTHYROXINE SODIUM 112 MCG TABLET PO (06:12)
[2022-11-30 06:23] LABS: Anion Gap 2 mmol/L (8-16); Blood Urea Nitrogen 13 mg/dL (9-20); Calcium 8.6 mg/dL (8.4-10.2); Carbon Dioxide 30 mmol/L (22-30); Chloride 104 mmol/L (98-107); Estimated CRCL calculation 69 ml/min; Estimated Glomerular Filt Rate > 60; Glucose 110 mg/dL (65-110); Magnesium 2.3 mg/dL (1.6-2.3); Phosphorus 3.7 mg/dL (2.5-4.5); Potassium 4.3 mmol/L (3.4-5.0); Sodium 136 mmol/L (137-145)
--- NOTE | 2022-11-30 08:16 | PM.IMPN ---
Progress Note: A&P Assessment and Plan (1) Septic bursitis of elbow: Qualifiers: Laterality: right Qualified Code(s): M71.121 - Other infective bursitis, right elbow Code(s): M71.129 - Other infective bursitis, unspecified elbow Status: Acute Assessment and Plan: Presented to the ED with complaints of redness and swelling of the right elbow extending down the right arm Elbow xray showed prominent dorsal soft tissue swelling, prominent coronoid process, spur, no fracture, dislocation, joint effusion, or bone destruction ortho consulted continue IV antibiotics ceftriaxone WBC stable at 5.3 Convert antibiotics Keflex 500mg PO Q6H wound care (2) Hypothyroid: Qualifiers: Hypothyroidism type: acquired Qualified Code(s): E03.9 - Hypothyroidism, unspecified Code(s): E03.9 - Hypothyroidism, unspecified Status: Acute Assessment and Plan: Continue home levothyroxine 112 mcg daily (3) Polyosteoarthritis, unspecified: Qualifiers: Osteoarthritis type: primary Qualified Code(s): M15.9 - Polyosteoarthritis, unspecified Code(s): M15.9 - Polyosteoarthritis, unspecified Status: Acute Assessment and Plan: osteoarthritis, stable, only right elbow affected with this infection, full ROM without pain or joint effusion Time Spent With Patient Time: 48 minutes Time with patient: Greater than 35 minutes Subjective Date/time seen: 11/30/22 08:16 Interval history: 11/30/22 11/29/22 10:35 Patient reports improvement in swelling of the right arm and elbow. He reports the redness that was extending down to his hand has already cleared up. Patient was seen by Orthopedics and an operation is likely to lead to delayed healing, Plan IV antibiotics for 36-48 hours. Aspirate is growing gram positive cocci in pairs. Will escalate Rocephin to 2 g every 24 hours and plan DC tomorrow on oral antibiotics targeting likely Strep species. 11/28/22? 23:10 ?72 years old white male who is in good health, is complaining of redness and swelling in the right elbow extending down into right arm for the last few days.? He says he was rolling a large log from a tree 3 weeks ago when? he scraped his elbow, which is slowly getting worse. He went to the urgent care who sent him to the emergency room.? Workup was done which showed septic bursitis of the right elbow.? Orthopedics was consulted, antibiotic initiated and he is being admitted for further medical management Review of Systems Review of Systems: All systems reviewed & are unremarkable except as noted in HPI and below Exam Narrative: General: well-nourished, well-appearing 72-year-old female, sitting up in bed, comfortable, NARD Neuro: awake, alert and oriented x4, speech clear, no focal neuro deficits noted HEENMT: normocephalic, atraumatic, EOMI, sclerae anicteric, moist oral mucosa Respiratory: Clear to auscultation bilaterally without crackles, rhonchi or wheezes, nonlabored breathing Cardio: regular rate, regular rhythm with S1-S2 Abdomen: nondistended, normoactive bowel sounds, soft, nontender to palpation Extremities: no edema, erythema, or tenderness to palpation, DP pulses 2+ bilaterally Skin: no rashes or lesions, warm and dry Psych: appropriate mood and affect, judgment and insight intact Objective Data Vital Signs Vital Signs: Vital Signs - 24 hr 11/29/22 10:00 11/29/22 10:10 11/29/22 14:15 Temperature 97.2 F L 97.8 F Pulse Rate 71 71 Respiratory Rate 16 18 Blood Pressure 136/70 116/64 Pulse Oximetry 97 100 Oxygen Delivery Room Air 11/29/22 20:00 11/30/22 00:00 11/30/22 04:00 Temperature 98.9 F 99.6 F 97.8 F Pulse Rate 73 74 75 Respiratory Rate 16 16 16 Blood Pressure 119/67 94/62 L 112/63 Pulse Oximetry 99 98 100 Oxygen Delivery Intake/Output Intake/Output: Intake & Output 11/27/22 11/28/22 11/29/22 11/30/22 23:5
[2022-11-30 08:19] VITALS: BP 125/76; PULSE 62; RESP 17; TEMP 36.6; O2SAT 98
[2022-11-30] MEDS: MELOXICAM 7.5 MG TABLET 15 MG PO (08:30)
[2022-11-30] MEDS: THERAPEUTIC MULTIVITAMINS/MINERALS TAB (*BKC) 1 TABLET PO (08:30)
--- NOTE | 2022-11-30 08:32 | PM.DS ---
DS: Admitting Diagnosis Discharge Date 11/30/22 1100 Admitting Diagnosis septic bursitis elbow DS: Discharge Diagnosis Discharge Diagnosis (1) Septic bursitis of elbow: Qualifiers: Laterality: right Qualified Code(s): M71.121 - Other infective bursitis, right elbow Code(s): M71.129 - Other infective bursitis, unspecified elbow Status: Acute Assessment and Plan: Presented to the ED with complaints of redness and swelling of the right elbow extending down the right arm Elbow xray showed prominent dorsal soft tissue swelling, prominent coronoid process, spur, no fracture, dislocation, joint effusion, or bone destruction ortho consulted continue IV antibiotics ceftriaxone WBC stable at 5.3 Convert antibiotics Keflex 500mg PO Q6H wound care (2) Hypothyroid: Qualifiers: Hypothyroidism type: acquired Qualified Code(s): E03.9 - Hypothyroidism, unspecified Code(s): E03.9 - Hypothyroidism, unspecified Status: Acute Assessment and Plan: Continue home levothyroxine 112 mcg daily (3) Polyosteoarthritis, unspecified: Qualifiers: Osteoarthritis type: primary Qualified Code(s): M15.9 - Polyosteoarthritis, unspecified Code(s): M15.9 - Polyosteoarthritis, unspecified Status: Acute Assessment and Plan: osteoarthritis, stable, only right elbow affected with this infection, full ROM without pain or joint effusion DS: Summary Hospital Course Hospital Course: patient is 72-year-old male with a past medical history of hypothyroidism and arthritis who presented to the ED with complaints of redness and swelling of the right elbow. X-ray of the elbow showed soft tissue swelling. Orthopedics was consulted and patient underwent drainage which did go for testing. Culture did grow Staph aureus. Patient was initiated on IV ceftriaxone which has been converted to p.o. Keflex 500 mg Q6H. WBC stable at 5.3. All other labs and vital signs are stable. Patient denies any current chest pain, shortness a breath, nausea, vomiting, diarrhea constipation. Patient is stable for discharge per labs and vital signs. Patient will need to follow up with Orthopedics as indicated. Status at Discharge Functional status at discharge: independent ambulation Overall status at discharge: patient is progressing back to baseline Time Spent with Patient Time attestation: Total time spent providing and/or coordinating discharge services:43 minutes Time spent: Greater than 30 minutes Specific discharge activities: Diagnostic testing, chart review, developing a treatment plan, education, care coordination documentation, physical exam, result review Exam Narrative: General: well-nourished, well-appearing 72-year-old male, sitting up in bed, comfortable, NARD Neuro: awake, alert and oriented x4, speech clear, no focal neuro deficits noted HEENMT: normocephalic, atraumatic, EOMI, sclerae anicteric, moist oral mucosa Respiratory: Clear to auscultation bilaterally without crackles, rhonchi or wheezes, nonlabored breathing Cardio: regular rate, regular rhythm with S1-S2 Abdomen: nondistended, normoactive bowel sounds, soft, nontender to palpation Extremities: no edema, erythema, or tenderness to palpation, DP pulses 2+ bilaterally Skin: no rashes or lesions, warm and dry Psych: appropriate mood and affect, judgment and insight intact DS: Data Data Completed and Pending Labs on day of discharge: Labs from last 24 hours 11/30/22 05:50 WBC 5.3 RBC 3.87 L Hgb 12.2 L Hct 37.5 L MCV 96.9 MCH 31.5 MCHC 32.5 RDW 13.6 Plt Count 145 L MPV 9.3 Immature Gran % (Auto) 0.4 Neut % (Auto) 68.4 Lymph % (Auto) 15.7 L [place] % (Auto) 13.2 H Eos % (Auto) 1.9 Baso % (Auto) 0.4 Lymph # (Auto) 0.83 L [place] # (Auto) 0.7 H Eos # (Auto) 0.1 Baso # (Auto) 0.0 Abs Immat Gran (auto) 0.02 Absolute Neuts (auto) 3.6 Absolute Nucleate
--- NOTE | 2022-11-30 09:16 | PM.PNORT ---
Progress Note: A&P Assessment and Plan (1) Septic bursitis of elbow: Qualifiers: Laterality: right Qualified Code(s): M71.121 - Other infective bursitis, right elbow Code(s): M71.129 - Other infective bursitis, unspecified elbow Status: Acute Assessment and Plan: Improvement in redness/warmth of the right elbow. 1+ pitting edema in the elbow/forearm noted. Small area of fluctuance at the bursa, nontender. Culture reveals staph, sensitivities pending currently. Per medicine, plan to transition to Keflex for discharge. Will need to continue to follow cultures and adjust therapy as indicated. Patient would benefit from an elbow pad to prevent irritation at the elbow. Follow up in the outpatient orthopedic clinic in 4 weeks. Plan Reviewed above plan with attending MD, Dr. Cates. Agrees with current plan as indicated above. Subjective Subjective Date/Time Seen: 11/30/22 09:16 Interval history: 1 day s/p initiation of IV antibiotics for septic right elbow bursitis. Patient reports significant improvement in pain. Very hopeful for discharge today. Review of Systems Constitutional: Constitutional: Reports no additional constitutional complaints, Denies excessive sweating, Denies fever(s) and Denies weight gain Eyes: Eyes: Reports no additional eye complaints and Denies change in vision ENT: Reports system reviewed and no additional complaints, except as documented and Reports Normal hearing present Cardiovascular: Cardiovascular: Denies chest pain, Denies diaphoresis, Denies leg ulcers and Denies dyspnea on exertion Respiratory: Respiratory: Reports no additional respiratory complaints, Denies cough and Denies dyspnea on exertion Gastrointestinal: Gastrointestinal: Reports no additional gastrointestinal complaints, Denies abdominal pain, Denies constipation, Denies nausea and Denies vomiting Genitourinary: Genitourinary: Reports no additional male genitourinary complaints, Denies hematuria and Denies urinary frequency Musculoskeletal: Musculoskeletal: Reports no additional musculoskeletal complaints and Reports as per HPI Neurologic: Reports Normal hearing present Endocrine: Endocrine: Reports no additional endocrine complaints, Denies change in body appearance, Denies excessive sweating, Denies polyphagia, Denies polydipsia and Denies polyuria Exam Const: General: cooperative and average body habitus Nutritional Appearance: average body habitus Orientation/consciousness: patient oriented x3 Limitations: no limitations HENMT: Head: normal to inspection Ears: hearing grossly normal bilaterally Face/Nose/Sinus: Normal external nose present and normal facial exam Face and sinus: normal facial exam Mouth: Yes moist mucous membranes Teeth and gingiva: dentition normal Eyes: General: appearance normal, both eyes and all related structures Pupils: Equal, round and reactive pupils present EOM: EOMs intact bilaterally Neck: Neck: normal visual inspection Chest: Chest palpation & inspection: normal inspection of the chest Resp: Effort & Inspection: normal respiratory effort and able to speak in complete sentences Cardio: Jugular venous distension: no JVD Neuro: General: patient oriented x3 Cranial nerves: Yes Equal, round and reactive pupils present Extrem: General: normal to inspection, full ROM, capillary refill normal and no calf tenderness Right upper extremity: shoulder/upper arm normal to inspection; no tenderness and no swelling, elbow/forearm tenderness of the olecranon, swelling (swelling of bursa of right elbow. Surrounding redness & warmth. Induration noted to wrist. ), warmth and distal pulses intact; no ecchymosis and wrist normal to inspection, tenderness, swelling, normal ROM, normal vascular exam, radial pulse present 2+ and ulnar pulse present 2+ Left upper extremity: normal to inspection, full ROM, normal capillary refill and elbow/forearm normal to inspection and normal ROM
[2022-11-30 11:58] VITALS: BP 116/70; PULSE 65; RESP 16; TEMP 36.3; O2SAT 98
== END 2022-11-30 13:15 | disposition home or self-care (01) | DRG 558 ==
LOC: ANHED 22:39 → ANH2MED 23:07
PROVIDERS: Emergency Medicine; Admitting Provider Family Medicine; Emergency Provider Physician Assistant; PCP Family Medicine; Visit Provider Nurse Practitioner
DX: M71.121 Other infective bursitis, right elbow (principal); B95.61 Methicillin susceptible Staphylococcus aureus infection as the cause of diseases classified elsewhere; D64.9 Anemia, unspecified; E78.2 Mixed hyperlipidemia; E03.9 Hypothyroidism, unspecified; M15.9 Polyosteoarthritis, unspecified; Z28.21 Immunization not carried out because of patient refusal; Z96.653 Presence of artificial knee joint, bilateral; Z85.810 Personal history of malignant neoplasm of tongue
CPT/HCPCS: 20605; 36415; 73080; 80048; 83735; 84100; 85025; 85652; 86140; 87040; 87070; 87075; 87147; 87181; 87186; 87205; 89051; 89060; 99213; 99285; A9270; G0463; J0696; J2270; J7030

== ENCOUNTER 2023-01-09 15:34 | Outpatient (CLI) | payer MEDICARE, OTHER, SELFPAY ==
[2023-01-09 15:49] LABS: Basophils Percent Auto 0.7 % (0.2-1.2); Eosinophils Absolute Auto 0.1 K/mm3 (0-0.3); Hematocrit 40.5 % (42.0-52.0); Hemoglobin 13.7 g/dL (14.0-18.0); Immature Granulocyte Absolute 0.01 K/mm3 (0.00-0.031); Immature Granulocyte Percent A 0.2 % (0-0.5); Lymphocytes Absolute Auto 1.12 K/mm3 (0.9-3.2); Lymphocytes Percent Auto 27.6 % (18.3-44.2); Mean Corpuscular HGB Conc 33.8 g/dl (32-36); Mean Corpuscular Hemoglobin 31.2 pg (26-34); Mean Corpuscular Volume 92.3 fl (80-100); Mean Platelet Volume 8.7 fl (7.4-10.4); Monocytes Absolute Auto 0.4 K/mm3 (0.1-0.6); Monocytes Percent Auto 10.6 % (2.6-8.5); Neutrophils Absolute Auto 2.4 K/mm3 (1.3-6.7); Neutrophils Percent Auto 57.9 % (45.5-73.1); Platelet Count Result 201 k/mm3 (150-375); Red Blood Count 4.39 M/mm3 (4.6-6.20); Red Cell Distribution Width 13.2 % (11.5-14.5); White Blood Count 4.1 K/mm3 (4.5-10.0)
[2023-01-09 17:03] LABS: Anion Gap 3 mmol/L (8-16); Blood Urea Nitrogen 17 mg/dL (9-20); Calcium 9.6 mg/dL (8.4-10.2); Carbon Dioxide 32 mmol/L (22-30); Chloride 102 mmol/L (98-107); Estimated Glomerular Filt Rate > 60; Glucose 90 mg/dL (65-110); Potassium 4.5 mmol/L (3.4-5.0); Sodium 137 mmol/L (137-145)
[2023-01-09 20:59] LABS: Iron 116 ug/dL (49-181)
[2023-01-09 21:10] LABS: Percent Iron Saturation 31 % (20-50)
== END 2023-01-09 15:35 | disposition home or self-care (01) ==
LOC: ANHLAB 15:39
PROVIDERS: PCP Family Medicine; Visit Provider Internal Medicine Hematology & Oncology
DX: D64.9 Anemia, unspecified (principal)
CPT/HCPCS: 36415; 80048; 82728; 83540; 83550; 85025

== ENCOUNTER 2023-02-02 09:45 | Emergency (ER) | payer MEDICARE, OTHER, SELFPAY ==
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
[2023-02-02 10:05] VITALS: BP 148/81; PULSE 56; RESP 18; TEMP 36.6; O2SAT 100
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
== END 2023-02-02 11:01 | disposition home or self-care (01) ==
PROVIDERS: Emergency Provider Nurse Practitioner Family; PCP Family Medicine
DX: S62.635A Displaced fracture of distal phalanx of left ring finger, initial encounter for closed fracture (principal); E78.2 Mixed hyperlipidemia; W22.8XXA Striking against or struck by other objects, initial encounter
CPT/HCPCS: 29130; 73140; 99214; G0463

== ENCOUNTER 2023-05-23 15:12 | Outpatient (CLI) | payer MEDICARE, OTHER, SELFPAY ==
[2023-05-23 16:38] LABS: Cholesterol 208 mg/dL (0-200); HDL Direct 55 mg/dL; Triglycerides 128 mg/dL (<150)
[2023-05-23 16:49] LABS: LDL Cholesterol Direct 121 mg/dL
[2023-05-23 17:16] LABS: Prostate Specific Antigen 2.7 ng/mL (< OR = 4.0)
== END 2023-05-23 15:13 | disposition home or self-care (01) ==
PROVIDERS: PCP Family Medicine; Visit Provider Nurse Practitioner Family
DX: Z12.5 Encounter for screening for malignant neoplasm of prostate (principal); E03.9 Hypothyroidism, unspecified
CPT/HCPCS: 36415; 80061; 84153; G0103

== ENCOUNTER 2023-09-16 13:49 | Outpatient (CLI) | payer MEDICARE, OTHER, SELFPAY ==
[2023-09-16 14:07] LABS: Basophils Percent Auto 0.5 % (0.2-1.2); Eosinophils Absolute Auto 0.2 K/mm3 (0-0.3); Eosinophils Percent Auto 3.6 % (0-4.4); Hematocrit 39.5 % (42.0-52.0); Hemoglobin 13.6 g/dL (14.0-18.0); Immature Granulocyte Absolute 0.01 K/mm3 (0.00-0.031); Immature Granulocyte Percent A 0.2 % (0-0.5); Lymphocytes Absolute Auto 1.14 K/mm3 (0.9-3.2); Lymphocytes Percent Auto 25.9 % (18.3-44.2); Mean Corpuscular HGB Conc 34.4 g/dl (32-36); Mean Corpuscular Hemoglobin 31.6 pg (26-34); Mean Corpuscular Volume 91.6 fl (80-100); Monocytes Absolute Auto 0.5 K/mm3 (0.1-0.6); Monocytes Percent Auto 11.8 % (2.6-8.5); Neutrophils Absolute Auto 2.6 K/mm3 (1.3-6.7); Platelet Count Result 198 k/mm3 (150-375); Red Blood Count 4.31 M/mm3 (4.6-6.20); Red Cell Distribution Width 12.7 % (11.5-14.5); White Blood Count 4.4 K/mm3 (4.5-10.0)
[2023-09-16 16:48] LABS: Iron 123 ug/dL (49-181)
[2023-09-16 16:54] LABS: Anion Gap 7 mmol/L (4-12); Blood Urea Nitrogen 19 mg/dL (9-20); Calcium 9.2 mg/dL (8.4-10.2); Carbon Dioxide 29 mmol/L (22-30); Chloride 103 mmol/L (98-107); Estimated Glomerular Filt Rate > 60; Glucose 83 mg/dL (65-110); Potassium 4.4 mmol/L (3.4-5.0); Sodium 139 mmol/L (137-145)
[2023-09-16 17:15] LABS: Percent Iron Saturation 35 % (20-50)
[2023-09-16 18:02] LABS: Folic Acid > 20.0 ng/mL (2.76->20)
== END 2023-09-16 13:50 | disposition home or self-care (01) ==
LOC: ANHLAB 13:52
PROVIDERS: PCP Family Medicine; Visit Provider Internal Medicine Hematology & Oncology
DX: D64.9 Anemia, unspecified (principal)
CPT/HCPCS: 36415; 80048; 82607; 82728; 82746; 83540; 83550; 85025

== ENCOUNTER 2024-02-26 09:49 | Outpatient (CLI) | payer MEDICARE, OTHER, SELFPAY ==
--- NOTE | 2024-02-26 11:15 | NEURO_ITS ---
Impression: # Complains of numbness of hands. ? # Right Carpal Tunnel Syndrome. ? # Left ulnar neuropathy across the elbow. ? # Needle/EMG exam abnormal proximally as well; Suggestive of cervical ? spondylosis or higher involvement. ? Nerve Conduction Studies Anti Sensory Summary Table ?Stim Site NR Peak (ms) P-T Amp (?V) Site1 Site2 Delta-P (ms) Dist (cm) Alonso (m/s) Left Median Anti Sensory (2-3nd Digit) Wrist ? 4.0 18.7 Wrist 2-3nd Digit 4.0 14.0 35 Wrist ? 4.0 33.4 Wrist 2-3nd Digit 4.0 14.0 35 Right Median Anti Sensory (2-3nd Digit) Wrist ? 4.8 25.5 Wrist 2-3nd Digit 4.8 14.0 29 Wrist ? 4.5 26.1 Wrist 2-3nd Digit 4.8 14.0 29 Left Radial Anti Sensory (Base 1st Digit) Wrist ? 2.3 22.4 Wrist Base 1st Digit 2.3 0.0 Right Radial Anti Sensory (Base 1st Digit) Wrist ? 2.4 10.7 Wrist Base 1st Digit 2.4 0.0 Left Ulnar Anti Sensory (5th Digit) Wrist ? 3.5 31.1 Wrist 5th Digit 3.5 14.0 40 Right Ulnar Anti Sensory (5th Digit) Wrist ? 3.3 16.0 Wrist 5th Digit 3.3 14.0 42 Motor Summary Table ?Stim Site NR Onset (ms) O-P Amp (mV) Site1 Site2 Delta-0 (ms) Dist (cm) Alonso (m/s) Left Median Motor (Abd Poll Brev) Wrist ? 3.8 4.9 Elbow Wrist 5.3 29.0 55 Elbow ? 9.1 3.6 Right Median Motor (Abd Poll Brev) Wrist ? 4.5 1.7 Elbow Wrist 5.7 29.0 51 Elbow ? 10.2 1.7 Left Ulnar Motor (Abd Dig Minimi) Wrist ? 3.0 5.5 A Elbow Wrist 6.1 30.0 49 A Elbow ? 9.1 4.7 B Elbow Wrist 3.8 19.0 50 B Elbow ? 6.8 3.7 Right Ulnar Motor (Abd Dig Minimi) Wrist ? 2.9 2.6 A Elbow Wrist 5.7 30.0 53 A Elbow ? 8.6 1.9 B Elbow Wrist 3.2 19.0 59 B Elbow ? 6.1 2.1 F Wave Studies ?NR F-Lat (ms) L-R F-Lat (ms) Left Median (Mrkrs) (Abd Poll Brev) ? 30.89 1.13 Right Median (Mrkrs) (Abd Poll Brev) ? 32.02 1.13 Left Ulnar (Mrkrs) (Abd Dig Min) ? 30.00 2.17 Right Ulnar (Mrkrs) (Abd Dig Min) ? 32.17 2.17 EMG ?Side Muscle Nerve Root Ins Act Fibs Amp Dur Recrt Comment Right 1stDorInt Ulnar C8-T1 Nml Nml Nml >12ms +2 Right Ext Indicis Radial (Post Int) C7-8 Nml Nml Nml Nml Nml Right Ext Digitorum Radial (Post Int) C7-8 Nml Nml Nml Nml Nml Right BrachioRad Radial C5-6 Nml Nml Nml Nml Nml Right PronatorTeres Median C6-7 Nml Nml Nml Nml Nml Right Abd Poll Brev Median C8-T1 Nml Nml Nml >12ms +1 Right ABD Dig Min Ulnar C8-T1 Nml Nml Nml >12ms +1 Left 1stDorInt Ulnar C8-T1 Nml Nml Nml >12ms +2 Left Ext Indicis Radial (Post Int) C7-8 Nml Nml Nml Nml Nml Left Ext Digitorum Radial (Post Int) C7-8 Nml Nml Nml Nml Nml Left BrachioRad Radial C5-6 Nml Nml Nml Nml Nml Left PronatorTeres Median C6-7 Nml Nml Nml Nml Nml Left Abd Poll Brev Median C8-T1 Nml Nml Nml >12ms +1 Left ABD Dig Min Ulnar C8-T1 Nml Nml Nml >12ms +1 Right Biceps Musculocut C5-6 Nml Nml Nml Nml Nml Right Triceps Radial C6-7-8 Nml Nml Nml >12ms +1 Right Deltoid Axillary C5-6 Nml Nml Nml >12ms +1 Left Biceps Musculocut C5-6 Nml Nml Nml Nml Nml Left Triceps Radial C6-7-8 Nml Nml Nml >12ms +1 Left Deltoid Axillary C5-6 Nml Nml Nml >12ms +1 MTDD
== END 2024-02-26 09:50 | disposition home or self-care (01) ==
LOC: ANHNEURO 09:50
PROVIDERS: PCP Family Medicine; Visit Provider Orthopaedic Surgery
DX: G56.22 Lesion of ulnar nerve, left upper limb (principal); G56.01 Carpal tunnel syndrome, right upper limb
CPT/HCPCS: 95886; 95911

== ENCOUNTER 2024-04-10 01:24 | Day surgery (SDC) | payer MEDICARE, OTHER, SELFPAY ==
[2024-04-02 14:45] VITALS: BMI 26.3
--- NOTE | 2024-04-02 14:56 | PC.NURSE ---
Report to the Outpatient Waiting Room, entrance under the green pavilion located off [facility], at time _0600am on date __04/10/24 . Planned Procedure Time: __0730am .? Time changes happen often and if your time is changed the preop area will call you the afternoon before. - You and your visitor will be asked to self-screen and do not enter if you have any COVID symptoms. Please call surgeon if you need to reschedule. - A mask is optional within the hospital at this time. Patients may have clear liquids (water, carbonated beverages, clear teas, apple juice) until 3 hours prior to surgery with a maximum of 20 ounces. - No food from midnight until time of surgery and no smoking. This includes no chewing gum, candy or mints. (0430am) Take only the following medications with a SIP of water on the morning of surgery: ____Levothyroxine DO NOT STOP ANY OF YOUR OTHER PRESCRIPTION MEDICATIONS PRIOR TO SURGERY EXCEPT THE FOLLOWING Medications to discontinue per physician __Meloxicam and Aspirin for [address] Cates Date to take last dose 04/02/24 Please no make-up, nail serbian, hairspray, perfume, deodorant, or body powder the day of surgery.? No jewelry (including any body piercings) or valuables the day of surgery, leave them at home.? Please take a shower or bath the night before, or the morning of, surgery with an antibacterial soap.? Wear comfortable, loose fitting clothing. Hibicleanse - Jewelry must be removed prior to entering the operating room.? Rings and piercings that are not removed may be cut off. - The hospital will not accept responsibility for valuables.? - Please leave all valuables, including medications, at home the day of surgery. If you are going home after surgery, a licensed delivery driver/customer service must drive you home.? - NO public transportation without another adult if you receive anesthesia. - We recommend that an adult stay with you for 24 hours following discharge. - We also recommend that you do not drive, make important decision, drink alcoholic beverages, or take any drugs that were not prescribed by your health care provider for at least 24 hours after your discharge time. Telephone instructions given to _patient and asked if any additional questions and then verbalized understanding. Patient advised to call surgeon office or pre surgery nurse liaison [phone] if any additional questions.
--- OUTSIDE RECORDS SUMMARY | 2024-04-10 01:27 | XMS_ITS ---
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 Past Plans No past plan information found. Radiation Treatments * No radiation treatments are documented for this patient in [facility]. Treatments may have been administered in another system. Lifetime Dose Tracking * Chemical Lifetime Dose Automatic Entry Manual Entr y Dose Length Product 717 mGy-cm 717 mGy-cm 0 mGy-cm
--- OUTSIDE RECORDS SUMMARY | 2024-04-10 01:27 | XMS_ITS | Clinical Summary ---
Author Organization [facility] Address [address] [place] [address] Care Team Providers Care Metallurgy Teacher Name Role Phone Wilmar Martin MD Primary Care Provider [phone] Source Comments [facility],non-owned Affiliates and Associated Physician Practices is amultiple site organization consisting of ambulatory clinics and hospital sitesin [place], [place], [place] and [place]. This disclosure is being madepursuant to the Care Everywhere program and may not contain all information available regarding this patient. Last updated 17.[facility] Allergies Active Allergy Reactions Criticality Noted Date Comments Bee Venom Urticaria,Rash Medium 01/26/2019 Codeine Nausea and/or Vomiting Low 06/13/2022 Medications * Be aware that medications may not be up to date on this document. Alwaysverify current medications with the patient. Medication Sig Dispensed Refills Start Date End Date Status meloxicam (MOBIC) 15 MG tablet Take 1 (one) tablet by mouth once daily 10/24/2018 Active Multiple Vitamins-Minerals (MULTIVITAMIN ADULT EXTRA C PO) Take 1 tablet by mouth once daily Active Ferrous Sulfate 27 MG Take 134 mg by mouth Active acetaminophen (Tylenol) 500 MG tablet Take 2 (two) tablets by mouth every 6 hours as needed Active sildenafil (Viagra) 50 MG tablet Take 1 (one) tablet by mouth as needed 05/29/2023 Active Synthroid 112 MCG tablet Take 1 (one) tablet by mouth once daily 04/08/2023 Active Active Problems Problem Noted Date Diagnosed Date 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 (FLUAD TRIVALENT; 65Y+) (AIIV3) 04/19/2019 INFLUENZA VACCINE, QUADR. (A FLURIA, FLUZONE QUADRIVALENT; 6MO+) (IIV4) 03/24/2007 PNEUMOCOCCAL PPSV23 04/19/2019 ZOSTER VACCINE, LIVE 12/31/2013 Zoster Hzv Vacc Recombinant Inj Im 04/19/2019 Social History Tobacco Use Types Packs/Day Years Used Date Smoking Tobacco: Never Smokeless Tobacco: Never Alcohol Use Standard Drinks/Week Comments Yes 4 (1 standard drink = 0.6 oz pur e alcohol) Sex and Gender Information Value Date Recorded Sex Assigned at Not on file Gender Identity Not on file Sexual Orientation Not on file Last Filed Vital Signs Vital Sign Reading Time Taken Comments Blood Pressure 153/96 02/28/2024 10:35 AM NARROW GAUGE BRAKEMAN Pulse 71 02/28/2024 10:35 AM NARROW GAUGE BRAKEMAN Temperature 36.6 ??C (97.8 ??F) 06/10/2020 9:44 AM CD T Respiratory Rate 16 09/27/2021 10:57 AM CDT Oxygen Saturation 98% 04/22/2019 10:59 AM NARROW GAUGE BRAKEMAN Inhaled Oxygen Concentration 21% 01/29/2019 1 :25 PM NARROW GAUGE BRAKEMAN Weight 75.1 kg (165 lb 9.6 oz) 02/28/2024 10:35 AM NARROW GAUGE BRAKEMAN Height 167.6 cm (5' 6 ) 02/28/2024 10:35 AM NARROW GAUGE BRAKEMAN Body Mass Index 26.73 02/28/2024 10:35 AM NARROW GAUGE BRAKEMAN Plan of Treatment Upcoming Encounters Date Type Department Care Team (Late st Contact Info) Description 08/28/2024 10:30 AM CDT Office Visit [facility] - ENT [address] [place] [phone] Chris Jackson MD [address] [place] [id number] Health Maintenance Due Date Last Done Comments COLOGUARD (AGES 45-75) - COL ON CA SCREENING [address] COLONOGRAPHY - COLON CA SCREENING 1950 FIT - COLON CA SCREENING 1950 FLEX SIG - COLON CA SCREENING 1950 LIPID TESTING 1950 MEDICARE AWV ? 12 MONTHS 1950 HEPATITIS C SCREENING 08/12/1969 DTAP/TDAP/TD VACCINES (1 - Tdap) 08/16/1970 Respiratory Syncytial Virus (RSV) Vaccine Pt: or over 60 yrs (1 - Risk 60-74 years 1-dose series) 2011 ZOSTER VACCINE (2 of 2) 06/14/2019 04/19/19 20, 12/31/2013 PNEUMOCOCCAL VACCINE 50+ (2 of 2 - PCV) 04/19/2020 04/19/2019 COVID-19 VACCINE (2 - Pfizer risk series) 05/17/2020 04/26/2020 SCREENING FOR DIABETES 02/20/2022 9, 01/26/2019 INFLUENZA VACCINE (#1) 2023 0, 03/24/2007, 03/24/2007 DEPRESSION SCREENING 03/11/2024 COLONOSCOPY - COLON CA SCREENING 04/04/2031 04/04/2021 Colorectal Cancer Screening 04/04/2031 HEPATITIS B VACCINE Aged Out No longe r eligible based on patient's age to complete this topic HIB VACCINE Aged Out No longer eligi ble based on patient's age to complete this topic HPV VACCINE Aged Out No longer eligi ble based on patient's age to complete this topic MENINGOCOCCAL (Group B) VACCINE Aged Out No longer eligible b ased on patient's age to complete this topic MENINGOCOCCAL VACCINE Aged Out No tushar ofe eligible based on patient's age to complete this topic Procedures Procedure Name Priority Date/Time Associated Diagnosis Comments BASIC METABOLIC PANEL (CALCIUM TOTAL) Routine 02/20/2019 2:29 AM NARROW GAUGE BRAKEMAN from Last 3 Months or Most Recently Relevant to Health Maintenance Results * (ABNORMAL) BASIC METABOLIC PANEL (CALCIUM TOTAL) (02/20/2019 2:29 AM NARROW GAUGE BRAKEMAN) BUN 11 7 - 26 mg/dL 02/20/2019 3:39 AM [facility] Creatinine 0.9 0.6 - 1.2 mg/dL 02/20/2019 3:39 AM [facility] Sodium 138 136 - 145 mmol/L 02/20/2019 3:39 AM [facility] Potassium 4.4 3.5 - 4.5 mmol/L 02/20/2019 3:39 AM [facility] Chloride 102 98 - 107 mmol/L 02/20/2019 3:39 AM [facility] CO2 25 22 - 29 mmol/L 02/20/2019 3:39 AM [facility] Glucose 121(H) 70 - 115 mg/dL 02/20/2019 3:39 AM [facility] Calcium 9.2 8.4 - 10.2 mg/dL 02/20/2019 3:39 AM [facility] Anion Gap 15 8 - 18 02/20/2019 3:39 AM [facility] BUN/Creatinine Ratio 12 7 - 23 02/20/2019 3:39 AM [facility] Osmolality Calculated 287 270 - 300 mOsm/kg 02/20/2019 3:39 AM [facility] eGFR >60 >60 mL/min/1.7 3 m2 02/20/2019 3:39 AM [facility] Blood BLOOD SPECIMEN / Unknown Lab Venipuncture / Unknown 02/20/2019 2:29 AM NARROW GAUGE BRAKEMAN 02/20/2019 3:14 AM NARROW GAUGE BRAKEMAN Amber Riggins MD LAB - CHEMISTRY [facility] Organization Address City/State/ZIP Co de Phone Number [address] [phone] from Last 3 Months or Most Recently Relevant to Health Maintenance Advance Directives * Full Code (Latest Code Status on File) Date Activated Date Inactivated Comments 02/19/2019 7:49 PM 02/20/2019 3:45 PM * Full Code Date Activated Date Inactivated Comments 02/19/2019 12:04 PM 02/19/2019 7:49 PM Care Teams Metallurgy Teacher Relationship Specialty Start Date End Date Wilmar Martin MD [address] [place] [phone] PCP - General 10/17/18
--- OUTSIDE RECORDS SUMMARY | 2024-04-10 01:27 | XMS_ITS | Referral Summary ---
Author Organization [facility] Address [address] [place] [address] Care Team Providers Care Senior Science Consultant Name Role Phone Wilmar Martin MD Primary Care Provider [phone] Source Comments [facility],non-owned Affiliates and Associated Physician Practices is amultiple site organization consisting of ambulatory clinics and hospital sitesin [place], [place], [place] and [place]. This disclosure is being madepursuant to the Care Everywhere program and may not contain all information available regarding this patient. Last updated 17.[facility] Encounters Date Type Department Care Team Description 02/28/2024 Travel 02/28/2024 10:45 AM PROJECT PRODUCTION ENGINEER Office Visit [facility] ENT [address] [place] [phone] Chris Jackson MD Tongue cancer (HCC) (Primary Dx) from Last 3 Months Allergies Active Allergy Reactions Criticality Noted Date [...] to cervical lymph node 02/07/2022 Tongue cancer Immunizations Name Administration Dates Next Due [employer] primary monovalent 12+ yr 0.3mL Pur ple [...] Comments Blood Pressure 153/96 02/28/2024 10:35 AM PROJECT PRODUCTION ENGINEER Pulse 71 02/28/2024 10:35 AM PROJECT PRODUCTION ENGINEER Temperature 36.6 ??C (97.8 ??F) 06/10/2020 9:44 AM CD T Respiratory Rate 16 09/27/2021 10:57 AM CDT Oxygen Saturation 98% 04/22/2019 10:59 AM PROJECT PRODUCTION ENGINEER Inhaled Oxygen Concentration 21% 01/29/2019 1 :25 PM PROJECT PRODUCTION ENGINEER Weight 75.1 kg (165 lb 9.6 oz) 02/28/2024 10:35 AM PROJECT PRODUCTION ENGINEER Height 167.6 cm (5' 6 ) 02/28/2024 10:35 AM PROJECT PRODUCTION ENGINEER Body Mass Index 26.73 02/28/2024 10:35 AM PROJECT PRODUCTION ENGINEER Functional Status Functional Status Response Date of Assess ment Is person deaf or have serious hearing difficult y? No 02/20/2019 Is person blind or have serious difficulty seein g? No 02/20/2019 Does person have serious dif ficulty walking/climbing stairs? No 02/20/2019 Does person have difficulty dressing/bathing? No 02/20/2019 Does person have difficulty doing errands alone? No 02/20/2019 Cognitive Status Response Date of Assessm ent Does person have difficulty concentrating/remembering/making decisions? No 02/20/2019 Plan of Treatment Upcoming Encounters Date Type Department Care Team (Late st Contact Info) Description 08/28/2024 10:30 AM CDT Office Visit [facility] - ENT [address] [place] [phone] Chris Jackson MD [address] [place] [id number] Procedures Procedure Name Priority Date/Time Associated Diagnosis Comments BASIC METABOLIC PANEL (CALCIUM TOTAL) Routine 02/20/2019 2:29 AM PROJECT PRODUCTION ENGINEER from Last 3 Months or Most Recently Relevant to Health Maintenance Results * (ABNORMAL) BASIC METABOLIC PANEL (CALCIUM TOTAL) (02/20/2019 2:29 AM PROJECT PRODUCTION ENGINEER) BUN 11 7 - 26 mg/dL 02/20/2019 3:39 AM [facility] Creatinine 0.9 0.6 - 1.2 mg/dL 02/20/2019 3:39 AM [facility] Sodium 138 136 - 145 mmol/L 02/20/2019 3:39 AM [facility] Potassium 4.4 3.5 - 4.5 mmol/L 02/20/2019 3:39 AM [facility] Chloride 102 98 - 107 mmol/L 02/20/2019 3:39 AM [facility] CO2 25 22 - 29 mmol/L 02/20/2019 3:39 AM [facility] Glucose 121(H) 70 - 115 mg/dL 02/20/2019 3:39 AM [facility] Calcium 9.2 8.4 - 10.2 mg/dL 02/20/2019 3:39 AM [facility] Anion Gap 15 8 - 18 02/20/2019 3:39 AM [facility] BUN/Creatinine Ratio 12 7 - 23 02/20/2019 3:39 AM [facility] Osmolality Calculated 287 270 - 300 mOsm/kg 02/20/2019 3:39 AM [facility] eGFR >60 >60 mL/min/1.7 3 m2 02/20/2019 3:39 AM [facility] Blood BLOOD SPECIMEN / Unknown Lab Venipuncture / Unknown 02/20/2019 2:29 AM PROJECT PRODUCTION ENGINEER 02/20/2019 3:14 AM PROJECT PRODUCTION ENGINEER Amber Riggins MD LAB - CHEMISTRY [facility] [address] [phone] from Last 3 Months or Most Recently Relevant to Health Maintenance Advance Directives * Full Code (Latest Code Status on File) Date Activated Date Inactivated Comments 02/19/2019 7:49 PM 02/20/2019 3:45 PM * Full Code Date Activated Date Inactivated Comments 02/19/2019 12:04 PM 02/19/2019 7:49 PM Care Teams Senior Science Consultant Relationship Specialty Start Date End Date Wilmar Martin MD [address] [place] [phone] PCP - General 10/17/18
--- OUTSIDE RECORDS SUMMARY | 2024-04-10 01:27 | XMS_ITS | Patient Health Summary ---
Author Organization [facility] Address [address] [place] [address] Care Team Providers Care Inbound Customer Service Agent Name Role Phone Wilmar Martin MD Primary Care Provider [phone] Note from [facility],non-owned Affiliates and Associated Physician Practices is amultiple site organization consisting of ambulatory clinics and hospital sitesin [place], [place], [place] and [place]. This disclosure is being madepursuant to the Care Everywhere program and may not contain all information available regarding this patient. Last updated 17.[facility] Allergies * Bee Venom(Urticaria,Rash) -Medium Criticality * Codeine(Nausea and/or Vomiting) -Low Criticality Medications * Be aware that medications may not be up to date on this document. Alwaysverify current medications with the patient. 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 (FLUAD TRIVALENT; 65Y+) (AIIV3)(Given 04/19/2019) * INFLUENZA VACCINE, QUADR. (AFLURIA, FLUZONE QUADRIVALENT; 6MO+) (IIV4)(Given 03/24/2007) * PNEUMOCOCCAL PPSV23(Given 04/19/2019) * ZOSTER VACCINE, LIVE(Given 12/31/2013) * Zoster Hzv Vacc Recombinant Inj Im(Given 04/19/2019) Social History Tobacco Use Types Packs/Day Years [...] Comments Blood Pressure 153/96 02/28/2024 10:35 AM [employer] Pulse 71 02/28/2024 10:35 AM [employer] Temperature 36.6 ??C (97.8 ??F) 06/10/2020 9:44 AM CD T Respiratory Rate 16 09/27/2021 10:57 AM CDT Oxygen Saturation 98% 04/22/2019 10:59 AM [employer] Inhaled Oxygen Concentration 21% 01/29/2019 1 :25 PM [employer] Weight 75.1 kg (165 lb 9.6 oz) 02/28/2024 10:35 AM [employer] Height 167.6 cm (5' 6 ) 02/28/2024 10:35 AM [employer] Body Mass Index 26.73 02/28/2024 10:35 AM [employer] Procedures * T4 FREE(Performed 06/10/2020) Performed for History of radiation to head and neck region, Tongue cancer (HCC), Oropharyngeal dysphagia * TSH(Performed 06/10/2020) Performed for History of radiation to head and neck region, Tongue cancer (HCC), Oropharyngeal dysphagia * DE LARYNGOSCOPY,FLEX FIBER,DIAGNOSTIC(Performed 02/10/2020) Performed for Hoarseness * CBC W/O DIFFERENTIAL(Performed 02/20/2019) * BASIC METABOLIC PANEL (CALCIUM TOTAL)(Performed 02/20/2019) * PT EVAL AND TREAT(Performed 02/19/2019) * PATHOLOGY TISSUE(Performed 02/19/2019) Performed for Tongue cancer (HCC) * DISSECTION NECK(Performed 02/19/2019) Performed for Tongue cancer (HCC) * ENDOTRACHEAL TUBE NOTE(Performed 02/19/2019) * TYPE + SCREEN PANEL(Performed 02/19/2019) * PATHOLOGY/CYTOLOGY REPORT ORDER(Performed 02/02/2019) * PATHOLOGY TISSUE(Performed 01/29/2019) Performed for Tongue cancer (HCC) * ENDOTRACHEAL TUBE NOTE(Performed 01/29/2019) * GLOSSECTOMY(Performed 01/29/2019) Performed for Tongue cancer (HCC) * TYPE + SCREEN PANEL(Performed 01/29/2019) Performed for Tongue lesion * CBC W/O DIFFERENTIAL(Performed 01/26/2019) Performed for 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(Performed 01/26/2019) Performed for Tongue cancer (HCC) Results * (ABNORMAL) TSH (06/10/2020 10:22 AM CDT) [facility] TSH 5.002(H) 0.350 - 4.940 uIU/mL 06/10/2020 11:[address] [facility] Blood BLOOD SPECIMEN / Unknown Lab Venipuncture / Unknown 06/10/2020 10:22 AM CDT 06/10/2020 10:28 AM CDT Chris Jackson MD LAB - CHEMISTRY MARYBETH MIN [address] [address], [facility] [place] [phone] * T4 FREE (06/10/2020 10:22 AM CDT) T4 Free 0.9 0.7 - 1.5 ng/dL 06/10/2020 11:[address] [facility] Blood BLOOD SPECIMEN / Unknown Lab Venipuncture / Unknown 06/10/2020 10:22 AM CDT 06/10/2020 10:28 AM CDT Chris Jackson MD LAB - CHEMISTRY [facility]ARYBETH MIN [facility] [address] [place] [id number], [facility] [place] [phone] * DE LARYNGOSCOPY,FLEX FIBER,DIAGNOSTIC (02/10/2020 10:13 AM [employer]) Narrative Chris Jackson MD - 02/10/2020 10:13 AM [employer] Chris Jackson MD ? 02/10/2020 10:20 AM Procedure Note Anesthesia: Lidocaine 2% and Vic-Synephrine 1/2% Endoscopy Type: ??Flexible Ucocy-Vxjraoyaqisnps-Qownwjxxxjrs Procedure Details: ??Informed consent was obtained. ??The patient was placed in the sitting position. ??After topical anesthesia and decongestion, the 4 mm laryngoscope was passed. ??The nasal cavities, nasopharynx, oropharynx, hypopharynx, and larynx were all examined. ??Vocal cords were examined during respiration and phonation. Findings: - Radiation changes visible on the base of tongue - no mucosal lesions - vocal cords demonstrate full mobility - With phonation there is arytenoid hooding making it difficult to visualize the vocal cords full in this position, however from the visible anterior portion there appears to be a small glottic gap. There are no nodules or polyps to explain this, but with close inspection during abduction there is a subtle fullness to the posterior right vocal fold with a sulcus posterior to this over the vocal process. Disposition: The patient tolerated procedure well. Complications: None I performed the procedure Chris Jackson MD PROCEDURE/MINOR SURG ICAL ORDERABLES * (ABNORMAL) CBC W/O DIFFERENTIAL (02/20/2019 2:29 AM [employer]) Only the most recent of2 resultswithin the time period is included. WBC 6.5 3.5 - 10.5 10? 3 /uL 02/20/2019 3:19 AM [facility] RBC 4.12(L) 4.30 - 5.70 10? 6 /uL 02/20/2019 3:19 AM [facility] Hemoglobin 12.3(L) 13.5 - 17.5 g/dL 02/20/2019 3:19 AM [facility] Hematocrit 37.6(L) 39.0 - 50.0 % 02/20/2019 3:19 AM [facility] MCV 91.3 81.0 - 97.0 fL 02/20/2019 3:19 AM [facility] MCH 29.9 28.0 - 34.0 pg 02/20/2019 3:19 AM [facility] MCHC 32.7 32.0 - 36.0 g/dL 02/20/2019 3:19 AM [facility] Platelet Count 170 150 - 400 10? 3 /uL 02/20/2019 3:19 AM [facility] RDW-SD 41.9 36.0 - 50.0 fL 02/20/2019 3:19 AM [facility] RDW-CV 12.6 11.2 - 14.8 % 02/20/2019 3:19 AM [facility] MPV 9.6 9.3 - 12.8 fL 02/20/2019 3:19 AM [facility] nRBC Absolute 0.00 0 10? 3 /uL 02/20/2019 3:19 AM [facility] nRBC Auto 0.0 0 /100 WBC 02/20/2019 3:19 AM [facility] Blood BLOOD SPECIMEN / Unknown Lab Venipuncture / Unknown 02/20/2019 2:29 AM [employer] 02/20/2019 3:14 AM [employer] Amber Riggins MD LAB - HEMATOLOGY ORD ERABLES [address] [phone] * (ABNORMAL) BASIC METABOLIC PANEL (CALCIUM TOTAL) (02/20/2019 2:29 AM [employer]) Only the most recent of2 resultswithin the time period is included. BUN 11 7 - 26 mg/dL 02/20/2019 3:39 AM [facility] Creatinine 0.9 0.6 - 1.2 mg/dL 02/20/2019 3:39 AM [facility] Sodium 138 136 - 145 mmol/L 02/20/2019 3:39 AM [facility] Potassium 4.4 3.5 - 4.5 mmol/L 02/20/2019 3:39 AM [facility] Chloride 102 98 - 107 mmol/L 02/20/2019 3:39 AM [facility] CO2 25 22 - 29 mmol/L 02/20/2019 3:39 AM [facility] Glucose 121(H) 70 - 115 mg/dL 02/20/2019 3:39 AM [facility] Calcium 9.2 8.4 - 10.2 mg/dL 02/20/2019 3:39 AM [facility] Anion Gap 15 8 - 18 02/20/2019 3:39 AM [facility] BUN/Creatinine Ratio 12 7 - 23 02/20/2019 3:39 AM [facility] Osmolality Calculated 287 270 - 300 mOsm/kg 02/20/2019 3:39 AM [facility] eGFR >60 >60 mL/min/1.7 3 m2 02/20/2019 3:39 AM [facility] Blood BLOOD SPECIMEN / Unknown Lab Venipuncture / Unknown 02/20/2019 2:29 AM [employer] 02/20/2019 3:14 AM [facility] Amber Riggins MD LAB - CHEMISTRY MARYBETH MIN Performing Organization Address [facility]/State/ZIP Co de Phone Number [facility] [address] [place] [address] * PATHOLOGY TISSUE (02/19/2019 5:18 PM [employer]) Only the most recent of2 resultswithin the time period is included. Case Report Surgical Pathology Report ? Case: [id number] ? Authorizing Provider: ??Dieter Arenas MD ? Collected: ? 02/19/2019 05:18 PM ? Ordering Location: ? [facility] ? Received: ?02/20/2019 06:08 AM ? Pathologist: ? Mariya Camacho MD ? Specimens: ?? A) - Lymph Node, Regional Resection, right level 3 ? B) - Lymph Node, Regional Resection, right level 2 ? C) - Lymph Node, Regional Resection, right level 1b ? 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 02/23/2019 5:14 PM [facility] Clinical History The patient is a 68-year-old man with tongue cancer. Operative procedure: Right neck dissection. 02/23/2019 5:14 PM [facility] Gross Description The requisition and specimen label(s) are identified with the patient name, Curt Jarrell. Received in formalin, specimen A, right level III and consists of one fragment of yellow adipose tissue and white-shoemaker tissue measuring 4.7 x 2.3 x 0.9 cm. The specimen has been searched for lymph nodes and seven potential lymph nodes were found. Roller Helper sections are submitted as follows: A1 - one potential lymph node, bisected; A2 - one potential lymph node, bisected; A3 - three potential lymph nodes; A4 - two potential lymph nodes. Received in formalin, specimen B, right level II consists of one segment of yellow adipose tissue and firm white-shoemaker tissue measuring 4.7 x 3.7 x 1.2 cm. The specimen has been searched for lymph nodes and 11 potential lymph nodes are found. Roller Helper section are submitted as follows: B1 - three potential lymph nodes; B2 - three potential lymph nodes; B3 - three potential lymph nodes; B4 - one potential lymph node, bisected; B5 - one potential lymph node, bisected. Received in formalin, specimen C, right level IB consists of multiple fragments of yellow adipose tissue and white-shoemaker tissue ranging from 2 to 5 cm in greatest dimension with an aggregate measurement of 7 x 4.3 x 3 cm. Five potential lymph nodes are identified with one lymph node appearing to be multiple lymph nodes matted together. Roller Helper sections are submitted as follows: C1 - one potential lymph node, bisected; C2 - one potential lymph node, bisected; C3 - one potential lymph node, bisected; C4 - one potential lymph node, bisected; C5-C8 - potential matted lymph nodes (C5-C6 to include one half and C7-C8 to include other half). TB/cml 02/23/2019 5:14 PM [facility] Disclaimer The performance characteristics of all immunohistochemical and indirect immunofluorescence stains (if any) cited in this report were determined by the [facility]opathology [facility] of [facility]. Some of these tests were developed by our own laboratory and have not been cleared or approved by the US Food and Drug Administration. The FDA does not require this test to go through premarket FDA review. These tests are used for clinical purposes. They should not be regarded as investigational or for research. This laboratory is certified under the Clinical Laboratory Improvement Amendments (CLIA) as qualified to perform high complexity clinical laboratory testing. This case has been personally reviewed and interpreted by the attending (teaching) pathologist. 02/23/2019 5:14 PM [facility] Synoptic Report LIP AND ORAL CAVITY ??(Lip and Oral - All Specimens) SPECIMEN ?? Procedure: ?Glossectomy: right partial - Previous glossectomy report [id number] TUMOR ?? Tumor Site: ?Oral ?? Tumor Laterality: ?Right ?? Histologic Type: ? : ?Squamous cell carcinoma, conventional ?? Histologic Grade: ?G2: Moderately differentiated ?? Tumor Size: ?Cannot be determined: Tumor size >2 cm (ulceration plus invasive carcinoma) but <4 cn ? Tumor Depth of Invasion (DOI) in Millimeters (mm): ?2 Millimeters (mm) ?? Tumor Focality: ?Unifocal ?? Accessory Findings: ? Lymphovascular Invasion: ?Not identified ? Perineural Invasion: ?Not identified MARGINS ?? Specimen Margins: ?Uninvolved by invasive tumor ? Distance from Closest Margin in Millimeters (mm): ?3.5 Millimeters (mm) ? Location of Closest Margin, per Orientation: ?Posterior-lateral (3-6:00) ? Location and Distance of Other Close Margins: ?other margins at least 5 mm from tumor ? Status of Non-Invasive Tumor at Margins: ?Uninvolved by high-grade dysplasia / in situ disease ? Distance from Closest Margin in Millimeters (mm): ?3 Millimeters (mm) ? Closest Margin, per Orientation: ?lateral LYMPH NODES ?? : ? Number of Lymph Nodes Involved: ?1 ? Laterality of Lymph Nodes Involved: ?Ipsilateral (including midline) ? Size of Largest Metastatic Deposit in Centimeters (cm): ?0.4 cm Centimeters (cm) ? Extranodal Extension (OTIS): ?Not identified ? Number of Lymph Nodes Examined: ?19 PATHOLOGIC STAGE CLASSIFICATION (pTNM, AJCC 8th Edition) : ? Primary Tumor (pT): ?pT2 ?? Regional Lymph Nodes (pN): ?pN1 ADDITIONAL FINDINGS Additional Pathologic Findings: ?ulceration and granulation tissue 02/23/2019 5:14 PM [employer] [facility] Embedded Images 02/23/2019 5:14 PM [facility] Biopsy, Excision (Lymph Node, Regional Resection) 02/19/2019 5:18 PM [employer] 02/20/2019 6:08 AM [employer] Comment:Pre-op diagnosis: TONGUE CANCER Biopsy, Excision (Lymph Node, Regional Resection) 02/19/2019 5:27 PM [employer] 02/20/2019 6:08 AM [employer] Comment:Pre-op diagnosis: TONGUE CANCER Biopsy, Excision (Lymph Node, Regional Resection) 02/19/2019 5:35 PM [employer] 02/20/2019 6:08 AM [employer] Comment:Pre-op diagnosis: TONGUE CANCER Dieter Arenas MD LAB - PATHOLOGY/CYTO LOGY ORDERABLES Performing Organization Address City/State/[facility] Co de Phone Number [facility] [address] [phone] * ETT LINE PERFORMABLE (02/19/2019 4:41 PM [employer]) Narrative Rico Wheat MD - 02/19/2019 4:41 PM [employer] Rico Wheat MD ? 02/19/2019 ??4:42 PM Endotracheal Tube Placement: ? Patient Location: OR. Intubation Event Date/Time: ??02/19/2019 4:26 PM Procedure: intubation (72186). Procedure Section: ?? Sedation: IV sedation. Indications for Airway Management: ??airway protection Procedure pretreatments used? ??No Induction: standard IV Patient Position: ??sniffing Mask Ventilation: easy. Blade Type: Mercedes Blade Size: 4 Laryngoscopy View: grade 1 (full cords) Tube: endotracheal tube Placement: oral Tube type: cuff - inflated Tube Size (MM): 8 Depth of Insertion (CM): 22 Measured From: teeth Cuff Inflated With: air Number of Attempts: 1. Placement Verified By: direct visualization, bilateral breath sounds, chest auscultation and CO2 monitor Tube secured with: ??adhesive tape. Difficult Airway? ??No. Procedure Start Time: 02/19/2019 4:26 PM. Staff Section ?? Anesthesia Provider: Rico Wheat MD, Performed the procedure Ruba Rivera MD GENERAL ANESTHESIA O RDERABLES * TYPE + SCREEN PANEL (02/19/2019 1:38 PM [employer]) Only the most recent of2 resultswithin the time period is included. Antibody Screen NEG 9 2:[address] [facility] [employer] [facility] ABO Rh A NEG 02/19/2019 2:[address] [facility] Blood Bank BLOOD SPECIMEN / Unknown Venipuncture / Unknown 02/19/2019 1:38 PM [employer] 02/19/2019 2:10 PM [employer] Mahsa Yanez MD LAB - BLOOD BANK ORD ERABLES [facility] [address] * PATHOLOGY/CYTOLOGY REPORT ORDER (02/02/2019 11:34 AM [employer]) Narrative 02/02/2019 11:34 AM [employer] Ordered by an unspecified provider. Scanned Document LAB - PATHOLOGY/CYTO LOGY ORDERABLES * ETT LINE PERFORMABLE (01/29/2019 11:29 AM [employer]) Narrative Yamila Hawley APRN-CRNA - 01/29/2019 11:29 AM [employer] Yamila Hawley APRN-CRNA ? 01/29/2019 11:30 AM Endotracheal Tube Placement: ? Patient Location: OR. Intubation Event Date/Time: ??01/29/2019 10:59 AM Procedure: intubation ([id number]). Procedure Section: ?? Sedation: under general anesthesia. Indications for Airway Management: ??anesthesia Induction: standard IV Patient Position: ??sniffing Mask Ventilation: easy. Blade Type: Mercedes Blade Size: 4 Laryngoscopy View: grade 1 (full cords) Intubation Adjuncts: stylet Tube: endotracheal tube Placement: oral Tube type: cuff - inflated Tube Size (MM): 7 Depth of Insertion (CM): 22 Measured From: lips Cuff Inflated With: air Number of Attempts: 1. Placement Verified By: direct visualization, bilateral breath sounds, chest auscultation and CO2 monitor Tube secured with: ??adhesive tape. Difficult Airway? ??No. Procedure Start Time: 01/29/2019 10:59 AM. Staff Section ?? Anesthesia Provider: Yamila Hawley APRN-RECORDING ARTIST, Performed the procedure Tod Urrutia MD GENERAL ANESTHESI A ORDERABLES * CT CHEST W CONTRAST (01/26/2019 9:47 AM [employer]) Anatomical Region Laterality Modality Chest Computed Tomogra phy 01/26/2019 9:50 AM [employer] Impressions 01/26/2019 12:39 PM [employer] IMPRESSION: 1. 5 mm pulmonary nodule in the right upper lobe abutting the minor fissure; may represent an intrafissural lymph node. Otherwise, no evidence of metastases disease in the chest. Attention on follow-up to document stability is recommended. Dictated by Ashley Ring MD (associate professor of radiology). I, Dr. Ursula RODRIGUEZ M.D. have personally reviewed and interpreted this examination/study. This report was electronically signed by Ursula RODRIGUEZ M.D. ??on 01/26/2019 12:39 PM . Narrative 01/26/2019 12:39 PM [employer] EXAMINATION: Computed tomography (CT) of the chest with contrast HISTORY: History of squamous carcinoma of the tongue. TECHNIQUE: CT of the chest was performed following the uneventful administration of 100 mL of Isovue 370 intravenous contrast according to standard protocol. COMPARISON: No prior study is available for comparison. FINDINGS: There is a left-sided aortic arch. The aorta and main pulmonary arteries are normal in course and caliber. Mild bilateral dependent atelectasis is present. Otherwise no focal consolidation is seen. No pleural effusion or focal pleural thickening is identified. There is no evidence of pneumothorax. There is a 5 mm solid pulmonary nodule in the right upper lobe abutting the minor fissure (series 4 image 44), may represent an intrafissural lymph node. The trachea is patent and midline. The heart size is normal. No pericardial effusion is present. There are a few subcentimeter lymph nodes in the mediastinum. Otherwise, no mediastinal, hilar, supraclavicular, or axillary lymphadenopathy is seen. The thyroid gland enhances homogenously. The visible portions of the liver, gallbladder, spleen, pancreas, adrenal glands, kidneys, stomach, and bowel are normal. Bone windows demonstrate no suspicious lytic or blastic lesions. The visible osseous structures are intact. Multilevel degenerative changes are noted in the spine. Procedure Note Leigha Rodriguez MD - 01/26/2019 EXAMINATION: Computed tomography (CT) of the chest with contrast HISTORY: History of squamous carcinoma of the tongue. TECHNIQUE: CT of the chest was performed following the uneventful administration of 100 mL of Isovue 370 intravenous contrast according to standard protocol. COMPARISON: No prior study is available for comparison. FINDINGS: There is a left-sided aortic arch. The aorta and main pulmonary arteries are normal in course and caliber. Mild bilateral dependent atelectasis is present. Otherwise no focal consolidation is seen. No pleural effusion or focal pleural thickeningis identified. There is no evidence of pneumothorax. There is a 5 mm solid pulmonary nodule in the right upper lobe abutting the minor fissure (series 4 image 44), may represent an intrafissural lymph node. The trachea is patent and midline. The heart size is normal. No pericardial effusion is present. There area few subcentimeter lymph nodes in the mediastinum. Otherwise, no mediastinal, hilar, supraclavicular, or axillary lymphadenopathy isseen. The thyroid gland enhances homogenously. The visible portions of the liver, gallbladder, spleen, pancreas,adrenal glands, kidneys, stomach, and bowel are normal. Bone windows demonstrate no suspicious lytic or blastic lesions. The visible osseous structures are intact. Multilevel degenerative changesare noted in the spine. IMPRESSION: 1. 5 mm pulmonary nodule in the right upper lobe abutting the minor fissure; may represent an intrafissural lymph node. Otherwise, noevidence of metastases disease in the chest. Attention on follow-up to document stability is recommended. Dictated by Ashley Ring MD (associate professor of radiology). Dr. Ursula Forrester M.D. have personally reviewed and interpretedthis examination/study. This report was electronically signed by Ursula RODRIGUEZ M.D. on 01/26/2019 12:39 PM . Justin Hsieh MD CT ORDERABLES * CT NECK SOFT TISSUE W CONT (01/26/2019 9:46 AM [employer]) Anatomical Region Laterality Modality Head Computed Tomogra phy 01/26/2019 9:56 AM [employer] Impressions 01/26/2019 10:03 AM [employer] IMPRESSION: No CT apparent mass lesion involving tongue, may be due to infiltrative lesion or small size. No pathologic cervical lymphadenopathy based on size criteria. This report was electronically signed by MAGDALENE IVERSON ??on 01/26/2019 10:03 AM . Narrative 01/26/2019 10:03 AM [employer] EXAMINATION: Computed tomography (CT) of the neck with contrast HISTORY: tongue cancer TECHNIQUE: CT of the neck was performed with 50 mL Isovue-370 contrast according to standard protocol. FINDINGS: Usual beam hardening artifact caused by dental amalgam. Within this limitation: No demonstrable mass lesion involving oral cavity, including tongue. No demonstrable lesion involving pharynx and larynx. Scattered cervical lymph nodes are not pathologically enlarged based on size criteria. Largest level 1 nodes are right-sided level 1B lymph nodes, with measuring up to 1.3 x 0.6 cm in maximum axial plane, with normal architecture/fatty hilum. Major salivary glands appear symmetric and unremarkable. No abnormal salivary ductal dilatation. Mild mucosal thickening of bilateral ethmoid air cells and maxillary antra. Procedure Note Magdalene Iverson MD - 01/26/2019 EXAMINATION: Computed tomography (CT) of the neck with contrast HISTORY: tongue cancer TECHNIQUE: CT of the neck was performed with 50 mL Isovue-370 contrast according to standard protocol. FINDINGS: Usual beam hardening artifact caused by dental amalgam. Within this limitation: No demonstrable mass lesion involving oral cavity, including tongue. No demonstrable lesion involving pharynx and larynx. Scattered cervical lymph nodes are not pathologically enlarged based on size criteria. Largest level 1 nodes are right-sided level 1B lymphnodes, with measuring up to 1.3 x 0.6 cm in maximum axial plane, with normal architecture/fatty hilum. Major salivary glands appear symmetric and unremarkable. No abnormal salivary ductal dilatation. Mild mucosal thickening of bilateral ethmoid air cells and maxillaryantra. IMPRESSION: No CT apparent mass lesion involving tongue, may be due to infiltrative lesion or small size. No pathologic cervical lymphadenopathy based on size criteria. This report was electronically signed by MAGDALENE IVERSON on 01/26/201910:03 AM . Justin Hsieh MD CT ORDERABLES * CREATININE BLOOD - POCT (IP) [facility] (01/26/2019 9:34 AM AUDITOR MEDICAL CLAIMS) Creatinine POCT 1.16 0.3 - 1.3 mg/dL [facility] POCT TESTING eGFR POCT 60 60 ml/min [facility] POCT TESTING Blood BLOOD SPECIMEN / Unknown 01/26/2019 9:34 AM AUDITOR MEDICAL CLAIMS Justin Hsieh MD LAB - POINT OF CARE ORDERABLES [facility] POCT TESTING Formerly [facility] [address] [phone] Care Teams Inbound Customer Service Agent Relationship Specialty Start Date End Date Wilmar Martin MD [address] [place] [address] PCP - General 10/17/18
--- OUTSIDE RECORDS SUMMARY | 2024-04-10 01:27 | XMS_ITS | Clinical Summary ---
Author Organization [facility] Address [address] [address] Care Team Providers Care Mud Mill Tender Name Role Phone Wilmar Martin MD Primary Care Provider [phone] Allergies Active Allergy Reactions Criticality Noted Date Comments Codeine Nausea and Vomiting Low 06/13/2022 Venom-Honey Bee Rash Low 06/13/2022 Medications Synthroid 112 mcg tablet 05/06/2022 Active meloxicam (MOBIC) 15 mg tablet 05/07/2022 Active multivitamins-mi nerals-lutein (CENTRUM SILVER) Tablet Take 1 Tablet by mouth daily. Active ferrous sulfate 134 mg (27 mg iron) Tablet Take 134 mg by mouth. 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 Gender Identity Not on file Sexual Orientation Not on file Last Filed Vital Signs Vital Sign Reading Time Taken Comments Blood Pressure 114/82 09/20/2023 9:14 AM CDT Pulse 61 09/20/2023 9:14 AM CDT Temperature 36.9 ??C (98.4 ??F) 09/20/2023 9:14 AM CD T Respiratory Rate 16 09/20/2023 9:14 AM CDT Oxygen Saturation 95% 09/20/2023 9:14 AM CDT Inhaled Oxygen Concentration - - Weight 71.7 kg (158 lb) 09/20/2023 9:14 AM CDT Height 170.2 cm (5' 7 ) 06/13/2022 2:57 PM CDT Body Mass Index 24.75 06/13/2022 2:57 PM CDT Plan of Treatment Upcoming Encounters Date Type Department Care Team (Late st Contact Info) Description 09/25/2024 9:00 AM CDT Office Visit [facility] Oncology and Hematology - [place] [address] [facility] [address] [place] [address] Vinny August MD [address] [facility] [address] [place] [address] Health Maintenance Due Date Last Done Comments DTAP/TDAP/TD VACCINES (1 - Tdap) 08/16/1970 FIT-DNA Q 3 years 08/16/1996 FIT/FOBT Q 1 year 08/16/1996 Flex Sig/CT Colonography Q 5 years 08/16/1996 ZOSTER VACCINE (3 of 3) 06/14/2019 04/19/2019, 12/31 PNEUMOCOCCAL VACCINE 65+ YEA RS (2 of 2 - PCV) 04/19/2020 04/19/2019 INFLUENZA VACCINE (#1) 2023 04/19/2019, 2007 RSV VACCINE (60+ or ) (1 - 1-dose 75+ series) 08/16/2026 COLORECTAL SCREENING 04/04/2031 04/04/2021, 04/04/2021, 04/04/2021 Colorectal Cancer Screening 04/04/[address] [place] [address] MEDICARE PART A AND B FOR [facility] Address: [place] [id number] Care Teams Mud Mill Tender Relationship Specialty Start Date End Date Wilmar Martin MD [address] [place] [address] PCP - General Family Practice 06/13/22
--- OUTSIDE RECORDS SUMMARY | 2024-04-10 01:27 | XMS_ITS ---
Author Organization [facility] Care Team Providers Care Curator Name Role Phone Wilmar Martin MD Primary Care Provider + [phone] Chris Jackson MD Unavailable [phone] Benton Trejo MD Unavailable [phone] Active Problems Problem Noted Date Diagnosed Date Primary osteoarthritis of left shoulder 02/24/20 21 Overview (02/23/2021): Added automatically from request for surgery [id number] Cancer of anterior two-thirds of tongue 11/24/19 21 Cancer Staging:Pathologic stage from 04/10/2019:Stage III(pT2, pN1, cM0) - Signed by Benton Trejo MD on 11/23/2020 Current Oncology Plans No current plan information found. Past Plans No past plan information found. Radiation Treatments * Plan Last Treated On Elapsed Days Fractions Treated Prescribed Fraction Dose Prescribed Total Dose HEAD AND NECK 06/26/2019 39 27 200 cGy 5,400 cGy H_N BOOST 06/26/2019 39 3 200 cGy 600 cGy Reference Point Last Treated On Elapsed Days Session Dose Total Dose HN 06/26/2019 39 0 cGy 5,400 cGy HN BOOST 06/26/2019 39 0 cGy 600 cGy
--- OUTSIDE RECORDS SUMMARY | 2024-04-10 01:27 | XMS_ITS | Referral Summary ---
Author Organization [facility] Care Team Providers Care Copper Plate Lithographer Name Role Phone Wilmar Martin MD Primary Care Provider + [phone] Chris Jackson MD Unavailable [phone] Benton Trejo MD Unavailable [phone] Allergies Active Allergy Reactions Criticality Noted Date Comments Codeine Nausea And Vomiting Low 06/13/2022 Venom-Honey Bee Unknown,Urticaria Medium 11/06/2010 Medications multivit with minerals/lutein (MULTIVITAMIN 50 PLUS ORAL) Take 1 tablet by mouth every morning Active meloxicam (MOBIC) 15 mg tabletIndicatio ns:Osteoarthrit is Take 1 tablet (15 mg total) by mouth every morning 1 Active HYDROcodone-diana taminophen (NORCO) 5-325 mg per tablet 1 Active amoxicillin 500 mg capsuleIndicati ons:Prophylaxis , Medical Take 500 mg by mouth as needed Dental procedure 2 Active levothyroxine (SYNTHROID) 75 mcg tabletIndicatio ns:hypothyroidi sm Take 1 tablet (75 mcg total) by mouth cloth classer before breakfast 2 Active acetaminophen (TYLENOL) 500 mg tablet Take 2 tablets (1,000 mg total) by mouth every 6 (six) hours as needed for pain Active docusate sodium (DOK) 100 mg tabletIndicatio ns:constipation Take 1 tablet (100 mg total) by mouth 2 (two) times a day for 14 days 28 tablet 2 Active aspirin 81 mg enteric coated tablet Take 1 tablet (81 mg total) by mouth 2 (two) times a day for 14 days 28 tablet 2 Active Additional Information Patient taking differently:81 mg oralDaily, Reported on 11/23/2021 Active Problems Problem Noted Date Diagnosed Date Primary osteoarthritis of left shoulder 02/24/20 Overview (02/23/2021): Added automatically from request for surgery [id number] Cancer of anterior two-thirds of tongue 11/24/19 Cancer Staging:Pathologic stage from 04/10/2019:Stage III(pT2, pN1, cM0) - Signed by Benton Trejo MD on 11/23/2020 Social History Tobacco Use Types Packs/Day Years Used Date Smoking Tobacco: Never Smokeless Tobacco: Never Tobacco Cessation:Counseling Given: Not Answered AUDIT-C Answer Date Recorded Q1: How often do you have a drink containing alc ohol? 2-3 times a week 05/01/2021 Q2: How many drinks containi ng alcohol do you have on a typical day when you are drinking? 1 or 2 05/01/2021 Q3: How often do you have si x or more drinks on one occasion? 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 Gender Identity Not on file Sexual Orientation Not on file Last Filed Vital Signs Vital Sign Reading Time Taken Comments Blood Pressure 140/87 12/05/2023 9:49 AM CDT Pulse 59 12/05/2023 9:49 AM CDT Temperature 36.1 ??C (97 ??F) 05/01/2021 1:43 PM GRADING MACHINE OPERATOR Respiratory Rate 14 05/01/2021 2:55 PM GRADING MACHINE OPERATOR Oxygen Saturation 99% 12/05/2023 9:49 AM CDT Inhaled Oxygen Concentration - - Weight 73.5 kg (162 lb) 12/05/2023 9:49 AM CDT Height 170.2 cm (5' 7 ) 04/18/2021 3:05 PM GRADING MACHINE OPERATOR Body Mass Index 25.37 04/18/2021 3:05 PM GRADING MACHINE OPERATOR Plan of Treatment Not on file Medical Devices Implanted Type Area Product Planner Device Identifier Shelf Expiration Date Model / Serial / Lot [employer] [id number] 14mm 130mm Shoulder 42d Stem Humeral Trabecular Metal Tivanium - [id number] Implanted:Qty: 1 on 05/01/2021 by Jason Chang MD at [facility] [employer] [id number] 12/28/2029 [id number] / / [id number] [employer] [id number] [place] 3 Peg Monoblock Shoulder 4 Component Glenoid Sterile - [id number] Implanted:Qty: 1 on 05/01/2021 by Jason Chang MD at [facility] [employer] [id number] 12/12/2028 [id number] / / [id number] [employer] 6191-1-010 Simplex P Radiopaque Full Dose Cement Bone Sterile - [id number] Implanted:Qty: 1 on 05/01/2021 by Jason Chang MD at [facility] [employer] [id number] 06/09/2023 6191-1-010 / / [id number] [employer] [id number] 52mm 19mm Modular Shoulder Offset Head Humeral - [id number] Implanted:Qty: 1 on 05/01/2021 by Jason Chang MD at [facility] [employer] [id number] 11/08/2028 [id number] / / [id number] [employer] [id number] [place] 3.2mm 9in Guide Pin Orthopedic - [id number] Implanted:Qty: 1 on 05/01/2021 by Jason Chang MD at [facility] [employer] [id number] / / [id number] [place] [address] [place] [address] [place] [address] MEDICARE FOR LIFE Care Teams Copper Plate Lithographer Relationship Specialty Start Date End Date Wilmar Martin MD PCP - General 09/08/19 Chris Jackson MD [address] [place] [address] Surgeon Otolaryngology 11/23/20 Benton Trejo MD [address] [place] [address] Radiation Oncologist Radiation Oncology 10/31/23
--- OUTSIDE RECORDS SUMMARY | 2024-04-10 01:27 | XMS_ITS | Clinical Summary ---
Author Organization [facility] HealthCare Care Team Providers Care Marketing Senior Recruiter Name Role Phone Wilmar Martin MD Primary Care Provider + [phone] Chris Jackson MD Unavailable [phone] Benton Trejo MD Unavailable [phone] Allergies Active Allergy Reactions Criticality Noted [...] 1 tablet (75 mcg total) by mouth floriculturist before breakfast 2 Active acetaminophen (TYLENOL) 500 [...] (02/23/2021): Added automatically from request for surgery [id number] Cancer of anterior two-thirds of tongue 11/24/19 Cancer Staging:Pathologic stage from 04/10/2019:Stage III(pT2, pN1, cM0) - Signed by Benton Trejo MD on 11/23/2020 Surgical History Surgery Date Site/Laterality Comments JOINT REPLACEMENT 01/10/2020 - 02/08/2020 Right JOINT REPLACEMENT 03/11/2020 - 04/10/2020 Left LYMPH NODE DISSECTION 01/09/2019 - 02/07/2019 NECK DISSECTION 03/11/2018 - 03/10/2019 Right COLONOSCOPY Medical History Medical History Date Comments Dental caries Arthritis Oral cancer (HCC) Osteoarthritis Hypothyroidism Social History Tobacco Use Types Packs/Day Years [...] on file Legal Sex Male 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[employer] Gender Identity Not on file Sexual Orientation Not on file Obstetrics History Last Filed Vital Signs Vital Sign Reading Time Taken Comments Blood Pressure 140/87 12/05/2023 9:49 AM CDT Pulse 59 12/05/2023 9:49 AM CDT Temperature 36.1 ??C (97 ??F) 05/01/2021 1:43 PM AIR 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OL [employer]IST [employer] Respiratory Rate 14 05/01/2021 2:55 PM AIR 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[employer] Oxygen Saturation 99% 12/05/2023 9:49 AM CDT Inhaled Oxygen Concentration - - Weight 73.5 kg (162 lb) 12/05/2023 9:49 AM CDT Height 170.2 cm (5' 7 ) 04/18/2021 3:05 PM 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 Body Mass Index 25.37 04/18/2021 3:05 PM 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 Plan of Treatment Health Maintenance Due Date Last Done Comments Colon Cancer Screening-Colonoscopy 1950 Depression Screening 1950 Hepatitis C Screening 1950 Hepatitis B Screening 08/16/1969 Well Visit 65+ 08/16/2016 Zoster Vaccine (2 of 2) 06/14/2019 04/19/2019, 12/31 Pneumococcal vaccine 65+ (2 of 2 - PCV) 04/19/2020 0 04/19/2019 Covid-19 Vaccine (2 - Pfizer risk series) 05/17/2020 04/26/2020 Fall Risk Assessment 05/01/2022 05/01/2021 Influenza Vaccine (#1) 2023 04/19/2019, 2007 DTaP/Tdap/Td Vaccine (2 - Td or Tdap) 11/01/2025 Medical Devices Implanted Type Area Railroad Repairer Device Identifier Shelf Expiration Date Model / Serial / Lot [employer] [id number] 14mm 130mm Shoulder 42d Stem Humeral Trabecular Metal Tivanium - [id number] Implanted:Qty: 1 on 05/01/2021 by Jason Chang MD at [facility] [employer] [id number] 12/28/2029 [id number] / / [id number] [employer] [id number] [place] 3 Peg Monoblock Shoulder 4 Component Glenoid Sterile - [id number] Implanted:Qty: 1 on 05/01/2021 by Jason Chang MD at [facility] [employer] [id number] 12/12/2028 [id number] / / [id number] [employer] 6191-1-010 Simplex P Radiopaque Full Dose Cement Bone Sterile - [id number] Implanted:Qty: 1 on 05/01/2021 by Jason Chang MD at [facility] [employer] [id number] 06/09/2023 6191-1-010 / / [id number] [employer] [id number] 52mm 19mm Modular Shoulder Offset Head Humeral - [id number] Implanted:Qty: 1 on 05/01/2021 by Jason Chang MD at [facility] [employer] [id number] 11/08/2028 [id number] / / [id number] [employer] [id number] Steinmann 3.2mm 9in Guide Pin Orthopedic - [id number] Implanted:Qty: 1 on 05/01/2021 by Jason Chang MD at [facility] [employer] [id number] / / [id number] Insurance MEDICARE [facility] Address: [address] [place] [address] MEDICARE FOR LIFE MEDICARE FOR LIFE Care Teams Marketing Senior Recruiter Relationship Specialty Start Date End Date Wilmar Martin MD PCP - General 09/08/19 Chris Jackson MD [address] [place] [address] Surgeon Otolaryngology 11/23/20 Benton Trejo MD [address] [place] [address] Radiation Oncologist Radiation Oncology 10/31/23
--- OUTSIDE RECORDS SUMMARY | 2024-04-10 01:27 | XMS_ITS | Continuity of Care Document ---
Author Organization [facility] Address [address] [place] [address] Phone Care Team Providers Care Perinatal Educator Name Role Phone Viktor Umana Unavailable Unavailable Procedures Procedure Date Eye Exam Established Pt Office Consultation Ophthalmoscopy Office/outpatient Visit, Est Eye Exam, New Patient Advance Directives Directive Yes / No Effective Date File Name No Information Encounters Encounter Description Practice Location Reason(s) For Visit Diagnoses Date Provider Providers Copied on Encounter [facility], [address] [place] [address] [address], [place], [place], [address], [place] tel:[phone] [facility] No Information [address] Lyn[address]ang. [address] [place], [place], [facility], . tel:[phone] Office Consultation [facility], [address], [place], [place], [id number], [place] tel:[phone] [facility] No Information [address] Lyn[address] [place], [address], [place]. tel:[phone] Referring Provider: Jmaeson Singh, [address] [place], [place] [address], [place], [place], [facility]. tel:[phone] Office/outpati ent Visit, Est [facility], [address], [place], [place], [address], [place] tel:[phone] [facility] No Information [address] [facility] , [address], [place], [address], [place]. tel:[phone] [facility] Eye [facility], [address], [place], [place], [address], [place] tel:[phone] [facility] No Information [address] [facility] [address] [address] [facility] [address] , [address], [place], [address], [place]. tel:[phone] Family History Family Member Type Diagnosis Age At Onset No Information Payers Payer name Insurance type Covered alliance party ID Authoriza tion(s) No Information Social History Type Description Quantity Date Captured Comments Sex Male Smoking Status No Information Chief Complaint And Reason For Visit No Information Reason For Referral Reason For Referral No Information History Of Present Illness Encounter Date Complaint History Of Prese nt Illness No Information Functional Status Date Functional Assessmen t No Information Instructions Date Instruction Additional Infor mation No Information Assessments Type Assessment Date No Information Patient Care Teams Name Effective Dates (start - stop) Status Members No Information
[2024-04-10 06:30] VITALS: BP 124/69; PULSE 69; RESP 18; TEMP 36.6; O2SAT 97
[2024-04-10] MEDS: LACTATED RINGERS 1,000 ML 30 ML IV CONT (06:30)
[2024-04-10] MEDS: ACETAMINOPHEN 500 MG TABLET 1000 MG PO (07:00)
[2024-04-10] MEDS: CELECOXIB 200 MG CAPSULE PO (07:00)
--- NOTE | 2024-04-10 07:08 | WPDANESEPPF ---
Anes - Initial Pre Proc Eval Procedure: Operation Date: 04/10/24 07:30 Proposed Procedures p Right Carpal Tunnel Release - Kevin Cates MD Date/Time: 04/10/24 07:08 Surgeon: Kevin Cates MD Pre Op Diagnosis: Right Carpal Tunnel Syndrome Patient Data Age: 73 Gender: M Height: 1.68 m Weight: 74 kg Allergies Allergy/AdvReac Type Severity Reaction Status Date / Time bee venom protein (honey bee) Allergy Severe Swelling Verified 04/02/24 14:40 codeine Allergy Severe Nausea and Verified 04/02/24 14:41 Vomiting Home Medications ?Medication ?Instructions ?Recorded ?Confirmed ?Type epinephrine 0.3 mg/0.3 mL 0.3 mg (0.3 mL) IM ONCE allergic 11/30/21 04/02/24 Rx injection, auto-injector (EpiPen reaction #2 ea 2-Freddy) multivitamin with minerals-folic 1 tablet PO DAILY 11/28/22 04/02/24 History acid 0.4 mg tablet sildenafil 50 mg tablet (Viagra) 50 mg PO DAILY PRN sexual activity 04/11/23 04/02/24 Rx #9 tabs levothyroxine 112 mcg tablet 112 mcg PO DAILY #90 tabs 07/05/23 04/02/24 Rx meloxicam 15 mg tablet 15 mg PO QAM #90 tabs 07/05/23 04/02/24 Rx aspirin 81 mg tablet,delayed 81 mg PO DAILY 04/02/24 04/02/24 History release (Adult Aspirin Regimen) chlorhexidine gluconate 4 % 1 applic topical DAILY #237 mL 04/03/24 Rx topical liquid (Hibiclens) Patient hx anesthesia problems: none Family hx anesthesia problems: none Results Review: All pre-operative results and documents have been reviewed as part of the pre-operative evaluation. [facility] Past Medical History Medical History Hammer toes of both feet Right foot pain Left foot pain Left ankle pain Right ankle pain Squamous cell carcinoma of tongue Rupture of left biceps tendon BMI 26.0-26.9,adult Septic bursitis of elbow Cerumen impaction BMI 25.0-25.9,adult Elevated TSH Effusion of left knee DJD of left shoulder History of cancer tounge Arthritis Dry mouth Screening PSA (prostate specific antigen) Bilateral primary osteoarthritis of knee Anemia Male erectile dysfunction, unspecified Memory loss Mixed hyperlipidemia Surgical History Surgical History H/O neck dissection S/P partial glossectomy Presence of left artificial knee joint History of right knee joint replacement History of left knee replacement Total knee replacement status History of lymph node excision right side of neck Family History Family History Father Family history of arthritis Arthritis Mother Arthritis Sibling Arthritis Other Cerebrovascular accident Social History Social History Smoking status: Never smoker Second hand tobacco smoke exposure: No Additional smoking assessment comments: DENIES ANY FORM OF TOBACCO USE Alcohol intake: current Drinks per week: 3 Alcohol use details: 4-5 per week Substance use: never Substance use type: does not use Do You Feel Safe in your Home?: Yes Lack of Transportation: No Lack of Food: Never True Current Housing: I Have Housing Concerned About Future Housing: No Difficulty Paying Gas/Electric Bills: No Difficulty Paying for Meds: No Currently Unemployed: No Education: Master's Degree or Higher Difficulty w/ Childcare or Family Care: No Living arrangements: with family Occupation/Education: retired Additional occupation/education comments: [employer] Gender identity (if verbalized by the patient): Male Spiritual care concerns: No Anes - Eval Final PreProcedure Day of Procedure 04/10/24 07:08 Patient weight: overweight Heart: regular rate and rhythm Lungs: clear to auscultation Airway: Mallampati scale class II Neurological: alert and oriented Last oral intake: >/= 8 hours ASA classification: III Emergent: no Anesthetic plan: proceed Anesthesia type and monitoring: general GIVS and standard monitoring Results Review: All pre-operative results and documents have been reviewed as part of the pre-operative evaluation. Informed Consent: The patient's anesthetic plan and its attendant risks and benefits were discussed with the patient/family/POA. Questions were solicited and answers provided to the satisfaction of the patient/family/POA.
--- NOTE | 2024-04-10 07:17 | WPDHPUPDATE1 ---
History and Physical Update Update Date/Time: 04/10/24 07:17 History and Physical has been reviewed, including an updated exam of the patient. There are NO changes in the patient's condition. Risks, benefits, and alternatives have been discussed and questions answered. Patient agrees to proceed with procedure.
[2024-04-10] MEDS: ceFAZolin 2 GM/D5W 50 ML 2 GM/50 ML BAG IVPB (07:35)
[2024-04-10] MEDS: BUPivacaine HCL 0.5% 10 ML AMP INFILTRATE (08:10)
[2024-04-10 08:30] VITALS: BP 148/93; PULSE 83; RESP 16; TEMP 36.2; O2SAT 97
--- NOTE | 2024-04-10 08:34 | W.PM.PROC2 ---
Procedure Note - Detailed Date of Procedure 04/10/24 Pre-op Diagnosis Right Carpal Tunnel Syndrome Post-op Diagnosis Same Procedure Performed RIGHT CTR Surgeon Kevin Cates MD Anesthesia General Description of Procedure THE RIGHT UPPER EXTREMITY WAS PREPPED AND DRAPED IN THE STERILE FASHION. THE CARPAL TUNNEL WAS MARKED FROM THE FLEXED RING FINGER. THE TOURNIQUET WAS INFLATED. THE INCISION WAS MADE AT THE MID PALM DOWN THROUGH THE SUBCUTANEOUS TISSUES. THE PALMAR FASCIA WAS IDENTIFIED. AN INCISION WAS MADE THROUGH THE PALMAR FASCIA UNTIL THE CARPAL TUNNEL WAS ENTERED. A MOSQUITO HEMOSTAT WAS USED TO PROTECT THE MEDIAN NERVE WHILE THE INCISION TO THE PALMAR FASCIA WAS COMPLETE PROXIMALLY AND DISTALLY TO THE CARDINAL LINE. NEXT, THE TRANSVERSE CARPAL LIGAMENT WAS IDENTIFIED. A FREER ELEVATOR WAS USED TO SEPARATE THE NERVE FROM THE LIGAMENT. A METZENBAUM SCISSORS WAS THEN USED TO INCISE THE TRANSVERSE CARPAL LIGAMENT UNTIL THERE WAS A COMPLETE RELEASE OF THE CARPAL TUNNEL. THE MEDIAN NERVE WAS INTACT. THE TOURNIQUET WAS DEFLATED. THE BLEEDERS WERE CAUTERIZED. THE WOUND WAS WASHED. THE SKIN WAS APPROXIMATED WITH 4-0 NYLON SUTURE. STERILE DRESSING WAS APPLIED. PATIENT WAS EXTUBATED AND SENT TO THE RECOVERY ROOM. Estimated Blood Loss 5 Complications No immediate complications Condition Stable Disposition PACU
[2024-04-10 08:45] VITALS: BP 132/82; PULSE 70; RESP 14; O2SAT 97
[2024-04-10 09:00] VITALS: BP 129/81; PULSE 64; RESP 15; O2SAT 97
[2024-04-10 09:11] VITALS: BP 142/80; PULSE 69
[2024-04-10 09:40] VITALS: BP 146/84; PULSE 78
== END 2024-04-10 09:55 | disposition home or self-care (01) ==
PROVIDERS: PCP Family Medicine; Visit Provider Orthopaedic Surgery
PROC: (CPT 64721; principal; 2024-04-10 07:30)
DX: G56.01 Carpal tunnel syndrome, right upper limb (principal)
CPT/HCPCS: 64721; A9270; J0690; J1100; J2405; J2704; J3010; J7120

== ENCOUNTER 2024-05-28 15:06 | Outpatient (CLI) | payer MEDICARE, OTHER, SELFPAY ==
--- OUTSIDE RECORDS SUMMARY | 2024-05-28 15:37 | XMS_ITS | Continuity of Care Document ---
Author Organization [facility] Address [address] [place] [address] Phone Care Team Providers Care Adjunct Phlebotomy Instructor Name Role Phone Viktor Umana Unavailable Unavailable Procedures Procedure Date Eye Exam Established Pt Office Consultation Ophthalmoscopy Office/outpatient Visit, Est Eye Exam, New Patient Advance Directives Directive Yes / No Effective Date File Name No Information Encounters Encounter Description Practice Location Reason(s) For Visit Diagnoses Date Provider Providers Copied on Encounter [facility], [id number] [place] [address] [address], [place], [place], [id number], [place] tel:[phone] [facility] No Information 9 Lyndsay Hoang. [address] [place], [place], [facility], . tel:[phone] Office Consultation [facility], [address], [place], [place], [id number], [place] tel:[phone] [facility] No Information 7 Lyndsay Hoang. [address] [place], [address], [place]. tel:[phone] Referring Provider: Jameson Singh, [address] [place], [place] [address], [place], [place], [facility]. tel:[phone] Office/outpati ent Visit, Est [facility], [address], [place], [place], [id number], [place] tel:[phone] [facility] No Information 0 [address]ba. [address] , [address], [place], [address], [place]. tel:[phone] [facility] Eye [facility], [address], [place], [place], [address], [place] tel:[phone] [facility] No Information [address] [facility] , [address], [place], [address], [place]. tel:[phone] Family History Family Member Type Diagnosis Age At Onset No Information Payers Payer name Insurance type Covered constitution party ID Authoriza tion(s) No Information Social [...]
--- OUTSIDE RECORDS SUMMARY | 2024-05-28 15:37 | XMS_ITS | Clinical Summary ---
Author Organization [facility] Care Team Providers Care Rural Mail Contractor Name Role Phone Wilmar Martin MD Primary Care Provider + [phone] Chris Jackson MD Unavailable [phone] Benton Trejo MD Unavailable [phone] Allergies Active Allergy Reactions Criticality Noted [...] 1 tablet (75 mcg total) by mouth store assistant before breakfast 2 Active acetaminophen (TYLENOL) 500 [...] (02/23/2021): Added automatically from request for surgery [id number] Cancer of anterior two-thirds of tongue 11/24/19 [...] on file Legal Sex Male 1:00 AM SALESPERSON CORSETS Gender Identity Not on file Sexual Orientation Not on file Obstetrics History Last Filed Vital Signs Vital Sign Reading Time Taken Comments Blood Pressure 140/87 12/05/2023 9:49 AM CDT Pulse 59 12/05/2023 9:49 AM CDT Temperature 36.1 C (97 F) 05/01/2021 1:43 PM SALESPERSON CORSETS Respiratory Rate 14 05/01/2021 2:55 PM SALESPERSON CORSETS Oxygen Saturation 99% 12/05/2023 9:49 AM CDT Inhaled Oxygen Concentration - - Weight 73.5 kg (162 lb) 12/05/2023 9:49 AM CDT Height 170.2 cm (5' 7 ) 04/18/2021 3:05 PM SALESPERSON CORSETS Body Mass Index 25.37 04/18/2021 3:05 PM SALESPERSON CORSETS Plan of Treatment Health Maintenance Due Date [...] Tdap) 11/01/2025 Medical Devices Implanted Type Area Practice Nurse Device Identifier Shelf Expiration Date Model / Serial / Lot [employer] [id number] 14mm 130mm Shoulder 42d Stem Humeral Trabecular Metal Tivanium - [id number] Implanted:Qty: 1 on 05/01/2021 by Jason Chang MD at [facility] [employer] [id number] 12/28/2029 [id number] / / [id number] [employer] [id number] Hoopa 3 Peg Monoblock Shoulder 4 Component Glenoid Sterile - [id number] Implanted:Qty: 1 on 05/01/2021 by Jason Chang MD at [facility] [employer] [id number] 12/12/2028 [id number] / / [id number] [employer] 6191-1-010 Simplex P Radiopaque Full Dose Cement Bone Sterile - [id number] Implanted:Qty: 1 on 05/01/2021 by Jason Chang MD at [facility] [employer] [id number] 06/09/2023 6191-1-010 / / [id number] [employer] [id number] 52mm 19mm Modular Shoulder Offset Head Humeral - [id number] Implanted:Qty: 1 on 05/01/2021 by Jason Chang MD at [facility] [employer] [id number] 11/08/2028 [id number] / / [id number] [employer] [id number] Steinmann 3.2mm 9in Guide Pin Orthopedic - [id number] Implanted:Qty: 1 on 05/01/2021 by Jason Chang MD at [facility] [employer] [id number] / / [id number] [place] [address] MEDICARE [facility] FOR LIFE [place] [address] MEDICARE FOR LIFE Care Teams Rural Mail Contractor Relationship Specialty Start Date End Date Wilmar Martin MD PCP - General 09/08/19 Chris Jackson MD [address] [place] [address] Surgeon Otolaryngology 11/23/20 Benton Trejo MD [address] [place] [address] Radiation Oncologist Radiation Oncology 10/31/23
--- OUTSIDE RECORDS SUMMARY | 2024-05-28 15:37 | XMS_ITS | Clinical Summary ---
Author Organization [facility] Address [address] [place] [address] Care Team Providers Care Patient Safety Officer Name Role Phone Wilmar Martin MD Primary Care Provider [phone] Allergies Active Allergy Reactions Criticality Noted Date [...] Encounters Date Type Department Care Team Description 05/27/2024 External Device Data STL ABSTRACTION Provider, Abstract 05/27/2024 External Device Data STL ABSTRACTION Provider, Abstract 05/18/2024 External Device Data STL ABSTRACTION Provider, Abstract 05/16/2024 External Device Data STL ABSTRACTION Provider, Abstract 05/15/2024 External Device Data STL ABSTRACTION Provider, Abstract 05/13/2024 External Device Data STL ABSTRACTION Provider, Abstract 04/07/2024 External Device Data STL ABSTRACTION Provider, [...] on file Legal 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 Male 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 Gender Identity Not on file Sexual Orientation Not on file Last Filed Vital Signs Vital Sign Reading Time Taken Comments Blood Pressure 114/82 09/20/2023 9:14 AM CDT Pulse 61 09/20/2023 9:14 AM CDT Temperature 36.9 C (98.4 F) 09/20/2023 9:14 AM CDT Respiratory Rate 16 09/20/2023 9:14 AM CDT [...] Description 09/25/2024 9:00 AM CDT Office Visit [facility] Oncology and Hematology - [place] [address] [facility] [address] [place] [address] Vinny August MD [address] [facility] [address] [place] [address] Health Maintenance Due Date Last Done Comments DTAP/TDAP/TD VACCINES (1 - Tdap) 08/16/1970 FIT-DNA Q 3 years 08/16/1996 FIT/FOBT Q 1 year 08/16/1996 Flex Sig/CT Colonography Q 5 years 08/16/1996 ZOSTER VACCINE (3 of 3) 06/14/2019 04/19/2019, 12/31 PNEUMOCOCCAL VACCINE 50+ YEA RS (2 of 2 - PCV) 04/19/2020 04/19/2019 INFLUENZA VACCINE (#1) 2023 04/19/2019, 2007 RSV VACCINE (60+ or ) (1 - 1-dose 75+ series) 08/16/2026 COLORECTAL SCREENING 04/04/2031 04/04/2021, 04/04/2021, 04/04/2021 Colorectal Cancer Screening 04/04/[address] [place] [address] MEDICARE PART A AND B FOR LIFE Care Teams Patient Safety Officer Relationship Specialty Start Date End Date Wilmar Martin MD [address] [place] [address] PCP - General Family Practice 06/13/22
--- OUTSIDE RECORDS SUMMARY | 2024-05-28 15:37 | XMS_ITS | Referral Summary ---
Author Organization [facility] HealthCare Care Team Providers Care Media Marketing Specialist Name Role Phone Wilmar Martin MD Primary Care Provider + [phone] Chris Jackson MD Unavailable [phone] Benton Trejo MD Unavailable [phone] Allergies Active Allergy Reactions Criticality Noted [...] 1 tablet (75 mcg total) by mouth manager green before breakfast 2 Active acetaminophen (TYLENOL) 500 [...] (02/23/2021): Added automatically from request for surgery [id number] Cancer of anterior two-thirds of tongue 11/24/19 [...] on file Legal Sex Male 1:00 AM ENVIRONMENTAL MARKETER Gender Identity Not on file Sexual Orientation Not on file Last Filed Vital Signs Vital Sign Reading Time Taken Comments Blood Pressure 140/87 12/05/2023 9:49 AM CDT Pulse 59 12/05/2023 9:49 AM CDT Temperature 36.1 C (97 F) 05/01/2021 1:43 PM ENVIRONMENTAL MARKETER Respiratory Rate 14 05/01/2021 2:55 PM ENVIRONMENTAL MARKETER Oxygen Saturation 99% 12/05/2023 9:49 AM CDT Inhaled Oxygen Concentration - - Weight 73.5 kg (162 lb) 12/05/2023 9:49 AM CDT Height 170.2 cm (5' 7 ) 04/18/2021 3:05 PM ENVIRONMENTAL MARKETER Body Mass Index 25.37 04/18/2021 3:05 PM ENVIRONMENTAL MARKETER Plan of Treatment Not on file Medical Devices Implanted Type Area Saloonkeeper Device Identifier Shelf Expiration Date Model / Serial / Lot [employer] [id number] 14mm 130mm Shoulder 42d Stem Humeral Trabecular Metal Tivanium - [id number] Implanted:Qty: 1 on 05/01/2021 by Jason Chang MD at [facility] [employer] [id number] 12/28/2029 [id number] / / [id number] [employer] [id number] Lynn 3 Peg Monoblock Shoulder 4 Component Glenoid Sterile - [id number] Implanted:Qty: 1 on 05/01/2021 by Jason Chang MD at [facility] [employer] [id number] 12/12/2028 [id number] / / [id number] [employer] 6191-1-010 Simplex P Radiopaque Full Dose Cement Bone Sterile - [id number] Implanted:Qty: 1 on 05/01/2021 by Jason Chang MD at [facility] [employer] [id number] 06/09/2023 6191-1-010 / / [id number] [employer] [id number] 52mm 19mm Modular Shoulder Offset Head Humeral - [id number] Implanted:Qty: 1 on 05/01/2021 by Jason Chang MD at [facility] [employer] [id number] 11/08/2028 [id number] / / [id number] [employer] [id number] Steinmann 3.2mm 9in Guide Pin Orthopedic - [id number] Implanted:Qty: 1 on 05/01/2021 by Jason Chang MD at [facility] [employer] [id number] / / [id number] [place] [address] [place] [address] [place] [address] MEDICARE FOR LIFE Care Teams Media Marketing Specialist Relationship Specialty Start Date End Date Wilmar Martin MD PCP - General 09/08/19 Chris Jackson MD [address] [place] [address] Surgeon Otolaryngology 11/23/20 Benton Trejo MD [address] [place] [address] Radiation Oncologist Radiation Oncology 10/31/23
--- OUTSIDE RECORDS SUMMARY | 2024-05-28 15:37 | XMS_ITS | Encounter Summary ---
Author Organization [facility] Address 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 Gender Identity Not on file Sexual Orientation Not on file documented as of this encounter Plan of Treatment Upcoming Encounters Date Type Department Care Team (Late st Contact Info) Description 09/25/2024 9:00 AM CDT Office Visit [facility] Oncology and Hematology - [place] [address] [place] [address] [address] [place] [address] [place] [address] [place] [address] [address] [place] [address] documented as of this encounter Visit Diagnoses Not on filedocumented in this encounter Care Teams Travel Writer Relationship Specialty Start Date End Date Wilmar Martin MD [address] [place] [address] PCP - General Family Practice 06/13/22 documented as of this encounter
--- OUTSIDE RECORDS SUMMARY | 2024-05-28 15:37 | XMS_ITS | Encounter Summary ---
Author Organization [facility] Address 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 Male 4:07 PM CABIN MAN Gender Identity Not on file Sexual Orientation Not on file documented as of this encounter Plan of Treatment Upcoming Encounters Date Type Department Care Team (Late st Contact Info) Description 09/25/2024 9:00 AM CDT Office Visit [facility] Oncology and Hematology - [place] [address] [place] [address] [address] [place] [address] [place] [address] [place] [address] [address] [place] [address] documented as of this encounter Visit Diagnoses Not on filedocumented in this encounter Care Teams Assistant Scientist Relationship Specialty Start Date End Date Wilmar Martin MD [address] [place] [address] PCP - General Family Practice 06/13/22 documented as of this encounter
--- OUTSIDE RECORDS SUMMARY | 2024-05-28 15:37 | XMS_ITS ---
Author Organization [facility] Address [address] [place] [address] Care Team Providers Care Information Assurance Officer Name Role Phone Wilmar Martin MD Primary Care Provider [phone] Active Problems Problem Noted Date Diagnosed Date 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 Tongue cancer Current Oncology Plans No current plan information found. Past Plans No past plan information found. Radiation Treatments * No radiation treatments are documented for this patient in [facility]. Treatments may have been administered in another system. Lifetime Dose Tracking * Chemical Lifetime Dose Automatic Entry Manual Entr y Dose Length Product 717 mGy-cm 717 mGy-cm 0 mGy-cm
--- OUTSIDE RECORDS SUMMARY | 2024-05-28 15:37 | XMS_ITS ---
Author Organization [facility] Care Team Providers Care Computer Systems Technology Instructor Name Role Phone Wilmar Martin MD Primary Care Provider + [phone] Chris Jackson MD Unavailable [phone] Benton Trejo MD Unavailable [phone] Active Problems Problem Noted Date Diagnosed Date Primary osteoarthritis of left shoulder 02/24/20 21 Overview (02/23/2021): Added automatically from request for surgery [id number] Cancer of anterior two-thirds of tongue 11/24/19 Cancer Staging:Pathologic stage from 04/10/2019:Stage III(pT2, pN1, cM0) - Signed by Benton Trejo MD on 11/23/2020 Current Treatment and Therapy Plans No current plan information found. Past Treatment and Therapy Plans No past plan information found. Radiation Treatments * Course C1 HN 201905/18/2019 - 06/26/2019 Treatment Period Energy Fraction Dose Fractions Total Dose Plans Planned HEAD AND NECK 05/18/2019 - 06/26/2019 200 27 / 5,400 H_N BOOST 06/24/2019 - 06/26/2019 200 3 / 600 Reference Points Delivered HN 05/18/2019 - 06/26/2019 5,400 HN BOOST 06/24/2019 - 06/26/2019 600
--- OUTSIDE RECORDS SUMMARY | 2024-05-28 15:37 | XMS_ITS | Clinical Summary ---
Author Organization [facility] Address [address] [facility] [place] [address] Care Team Providers Care Spinner Frame Name Role Phone Wilmar Martin MD Primary Care Provider [phone] Source Comments [facility],non-owned Affiliates and Associated Physician Practices is amultiple site organization consisting of ambulatory clinics and hospital sitesin [place], [place], [place] and [place]. This disclosure is being madepursuant to the Care Everywhere program and may not contain all information available regarding this patient. Last updated 17.[facility] Allergies Active Allergy Reactions Criticality Noted Date [...] Department Care Team Description 02/28/2024 10:45 AM GUSSET MAKER Office Visit [facility] - [place] [address] [place] [phone] Chris Jackson MD Tongue cancer (Primary Dx) 02/28/2024 Travel from Last 3 Months Immunizations Name Administration Dates Next Due Covid Pfizer primary monovalent 12+ yr 0.3mL Pur ple [...] Comments Blood Pressure 153/96 02/28/2024 10:35 AM GUSSET MAKER Pulse 71 02/28/2024 10:35 AM GUSSET MAKER Temperature 36.6 C (97.8 F) 06/10/2020 9:44 AM CDT Respiratory Rate 16 09/27/2021 10:57 AM CDT Oxygen Saturation 98% 04/22/2019 10:59 AM GUSSET MAKER Inhaled Oxygen Concentration 21% 01/29/2019 1 :25 PM GUSSET MAKER Weight 75.1 kg (165 lb 9.6 oz) 02/28/2024 10:35 AM GUSSET MAKER Height 167.6 cm (5' 6 ) 02/28/2024 10:35 AM GUSSET MAKER Body Mass Index 26.73 02/28/2024 10:35 AM GUSSET MAKER Plan of Treatment Upcoming Encounters Date Type Department Care Team (Late st Contact Info) Description 08/28/2024 10:30 AM CDT Office Visit [facility] - ENT [address] [place] [address] Chris Jackson MD [address] [place] [address] Health Maintenance Due Date Last Done Comments COLOGUARD (AGES 45-75) - COL ON CA SCREENING [address] COLONOGRAPHY - COLON CA SCREENING 1950 FIT - COLON CA SCREENING 1950 FLEX SIG - COLON CA SCREENING 1950 LIPID TESTING 1950 MEDICARE AWV 12 MONTHS 1950 HEPATITIS C SCREENING 08/12/1969 [...] complete this topic MENINGOCOCCAL (Group B) VACCINE SHARED DECISION-MAKING Aged Out No longer eligible based on patient's age to complete this topic MENINGOCOCCAL GROUPS A/C/Y/W VACCINE Aged Out No longer eligible b ased on patient's age to complete this topic Procedures Procedure Name Priority Date/Time Associated Diagnosis Comments BASIC METABOLIC PANEL (CALCIUM TOTAL) Routine 02/20/2019 2:29 AM GUSSET MAKER from Last 3 Months or Most Recently Relevant to Health Maintenance Results * (ABNORMAL) BASIC METABOLIC PANEL (CALCIUM TOTAL) (02/20/2019 2:29 AM GUSSET MAKER) BUN 11 7 - 26 mg/dL 02/20/2019 3:39 AM [facility] Creatinine 0.9 0.6 - 1.2 mg/dL 02/20/2019 3:39 AM [facility] Sodium 138 136 - 145 mmol/L 02/20/2019 3:39 AM [facility] Potassium 4.4 3.5 - 4.5 mmol/L 02/20/2019 3:39 AM [facility] Chloride 102 98 - 107 mmol/L 02/20/2019 3:39 AM [facility] CO2 25 22 - 29 mmol/L 02/20/2019 3:39 AM [facility] Glucose 121(H) 70 - 115 mg/dL 02/20/2019 3:39 AM [facility] Calcium 9.2 8.4 - 10.2 mg/dL 02/20/2019 3:39 AM [facility] Anion Gap 15 8 - 18 02/20/2019 3:39 AM [facility] BUN/Creatinine Ratio 12 7 - 23 02/20/2019 3:39 AM [facility] Osmolality Calculated 287 270 - 300 mOsm/kg 02/20/2019 3:39 AM [facility] eGFR >60 >60 mL/min/1.7 3 m2 02/20/2019 3:39 AM [facility] Blood BLOOD SPECIMEN / Unknown Lab Venipuncture / Unknown 02/20/2019 2:29 AM GUSSET MAKER 02/20/2019 3:14 AM GUSSET MAKER Amber Riggins MD LAB - CHEMISTRY MARYBETH MIN [address] [phone] from Last 3 Months or Most Recently Relevant to Health Maintenance Advance Directives * Full Code (Latest Code Status on File) Date Activated Date Inactivated Comments 02/19/2019 7:49 PM 02/20/2019 3:45 PM * Full Code Date Activated Date Inactivated Comments 02/19/2019 12:04 PM 02/19/2019 7:49 PM Care Teams Spinner Frame Relationship Specialty Start Date End Date Wilmar Martin MD [address] [place] [phone] PCP - General 10/17/18
--- OUTSIDE RECORDS SUMMARY | 2024-05-28 15:37 | XMS_ITS | Clinical Summary ---
Author Organization [facility] Address [address] [place] [address] Care Team Providers Care Coal Dumping Equipment Operator Name Role Phone Wilmar Martin MD Primary Care Provider [phone] Allergies Active Allergy Reactions Criticality Noted Date Comments Bee Venom Unknown Medium 11/06/2010 Medications levothyroxine 50 MCG tablet 03/08/2021 Active Multiple Vitamin tablet Take 1 tablet by mouth daily. Active HM ADULT ASPIRIN 325 MG tablet 04/14/2020 Activ e Family History Medical History Relation Comments None Father None Mother Relation Status Comments Father Mother Social History Tobacco Use Types Packs/Day Years Used Date Smoking Tobacco: Never Smokeless Tobacco: Never Alcohol Use Standard Drinks/Week Comments Yes 8.3 (1 standard drink = 0.6 oz p ure alcohol) Sex and Gender Information Value Date Recorded Sex Assigned at Not on file Legal Sex Male 6:15 PM CDT Gender Identity Not on file Sexual Orientation Not on file Last Filed Vital Signs Vital Sign Reading Time Taken Comments Blood Pressure 100/72 04/04/2021 9:38 AM EXECUTIVE COACH Pulse 63 04/04/2021 9:38 AM EXECUTIVE COACH Temperature 36.6 C (97.8 F) 04/04/2021 9:38 AM EXECUTIVE COACH Respiratory Rate 16 04/04/2021 9:38 AM EXECUTIVE COACH Oxygen Saturation 100% 04/04/2021 9:38 AM EXECUTIVE COACH Inhaled Oxygen Concentration - - Weight 72.6 kg (160 lb) 03/22/2021 3:35 PM EXECUTIVE COACH Height 167.6 cm (5' 6 ) 03/22/2021 3:35 PM EXECUTIVE COACH Body Mass Index 25.82 03/22/2021 3:35 PM EXECUTIVE COACH Plan of Treatment Health Maintenance Due Date Last Done Comments Hepatitis C 08/16/1969 DTaP, Tdap and Td Vaccines ( 1 - Tdap) 08/16/1970 Annual Medicare Wellness Visit 08/16/2016 Zoster Vaccines (2 of 2) 06/14/2019 04/19/2019 Pneumococcal Vaccine: 65+ Years (2 of 2 - PCV) 04/19/2020 04/19/2019 COVID-19 Vaccine (2 - 2023-2 5 season) 2023 04/26/2020 Influenza Adult (#1) 2023 04/19/2019, 03/24/2007 RSV Immunization or 60+ Years (1 - 1-dose 75+ series) 08/16/2026 Colorectal Cancer Screening Colonoscopy (10 Years) 04/04/2031 04/04/2021, 04/04/2021 Meningococcal B Vaccine Aged Out No l onger eligible based on patient's age to complete this topic Meningococcal Vaccine Aged Out No tushar ofe eligible based on patient's age to complete this topic RSV Immunizations Under 20 Months Aged Out No longer eligible b ased on patient's age to complete this topic Medical Devices Implanted Type Area Wire Stitcher Operator Device Identifier Shelf Expiration Date Model / Serial / Lot Knees Procedures Procedure Name Priority Date/Time Associated Diagnosis Comments COLONOSCOPY Routine 04/04/2021 9:18 AM EXECUTIVE COACH from Last 3 Months or Most Recently Relevant to Health Maintenance Results * Colonoscopy (04/04/2021 9:18 AM EXECUTIVE COACH) Narrative Rico Mejia MD - 04/04/2021 9:18 AM EXECUTIVE COACH Rico Mejia MD 04/04/2021 9:39 AM RICO MEJIA MD, FACG, FACP COLONOSCOPY 04/04/2021 This is a 70-year-old male with history of Hypothyroidism, shoulder and bilateral knee replacements who now presents for colonoscopy for screening for colon cancer. GI review of systems is negative. No endocarditis risk factors. Allergies Allergen Reactions Bee Venom Unknown Medications: see list. Family history: negative for colon cancer. VITALS: Stable. LUNGS: Clear. HEART: RRR S1/S2 normal. ABDOMEN: NABS/NT. The procedure of colonoscopy, its indications, alternatives of barium studies and risks including perforation, bleeding, infection, reaction to medication as well as the possible need for blood or surgery were discussed with the patient prior to the procedure. The patient voices understanding, agrees to proceed and provides informed consent. INDICATION: Screening for colon cancer. POST-OP: Normal. SEDATION: Per Anesthesia PREP: Good. With the patient in the left lateral decubitus position, the Olympus [id number] colonoscope was introduced into the rectum and advanced easily to the cecum identified by Ileocecal valve, appendiceal orifice and cecal strap. Careful inspection of the mucosa was made upon insertion and withdrawal of the endoscope. FINDINGS: Cecum, Ascending, Transverse, Descending, Sigmoid colon and Rectum including retroflexion normal. No masses, polyps, AVMs, colitis or diverticulosis seen. No complications, blood loss or implants. ASSESSMENT AND PLAN: Unremarkable colonoscopy: screening colonoscopy in 10 years. Thank you for allowing me to care for your patient. He will follow-up with Dr. Martin as needed. Rico Mejia M.D. Cc: Dr. Nu Martin Kwaku Conn DO GI PROCEDURE ORDERABLES Final R esult from Last 3 Months or Most Recently Relevant to Health [place] [address] MEDICARE [facility] Angel Alerts Care Teams Coal Dumping Equipment Operator Relationship Specialty Start Date End Date Wilmar Martin MD [address] [place] [address] PCP - General FAMILY PRACTICE 04/04/21
[2024-05-28 16:03] LABS: Hematocrit 36.7 % (42.0-52.0); Hemoglobin 12.6 g/dL (14.0-18.0); Mean Corpuscular HGB Conc 34.3 g/dl (32-36); Mean Corpuscular Hemoglobin 31.1 pg (26-34); Mean Corpuscular Volume 90.6 fl (80-100); Mean Platelet Volume 9.2 fl (7.4-10.4); Platelet Count Result 180 k/mm3 (150-375); Red Blood Count 4.05 M/mm3 (4.6-6.20); Red Cell Distribution Width 12.9 % (11.5-14.5); White Blood Count 3.5 K/mm3 (4.5-10.0)
[2024-05-28 16:35] LABS: Alanine Aminotransferase 23 U/L (6-50); Albumin Level 4.4 g/dL (3.5-5.1); Alkaline Phosphatase 79 U/L (38-126); Anion Gap 11 mmol/L (4-12); Aspartate Amino Transferase 35 U/L (17-59); Bilirubin,Total 0.5 mg/dL (0.2-1.3); Blood Urea Nitrogen 13 mg/dL (9-20); Calcium 9.1 mg/dL (8.4-10.2); Carbon Dioxide 25 mmol/L (22-30); Chloride 102 mmol/L (98-107); Cholesterol 227 mg/dL (0-200); Estimated Glomerular Filt Rate > 60; Glucose 116 mg/dL (65-110); HDL Direct 65 mg/dL; Sodium 138 mmol/L (137-145); Triglycerides 67 mg/dL (<150)
[2024-05-28 16:46] LABS: LDL Cholesterol Direct 125 mg/dL
[2024-05-28 17:15] LABS: Free T4 Free Thyroxine 0.95 ng/dL (0.78-2.19)
[2024-05-28 17:56] LABS: Prostate Specific Antigen 2.1 ng/mL (< OR = 4.0)
== END 2024-05-28 15:07 | disposition home or self-care (01) ==
PROVIDERS: PCP Family Medicine; Visit Provider Nurse Practitioner Family
DX: D64.9 Anemia, unspecified (principal); E03.9 Hypothyroidism, unspecified; E78.2 Mixed hyperlipidemia; Z12.5 Encounter for screening for malignant neoplasm of prostate
CPT/HCPCS: 36415; 80053; 80061; 84153; 84439; 84443; 85027; G0103

== ENCOUNTER 2024-06-18 09:27 | Outpatient (CLI) | payer MEDICARE, OTHER, SELFPAY ==
--- OUTSIDE RECORDS SUMMARY | 2024-06-18 09:48 | XMS_ITS | Continuity of Care Document ---
Author Organization [facility] Address [address] [place] [address] Phone Care Team Providers Care Director Of Preclinical Research Name Role Phone Viktor Umana Unavailable Unavailable Procedures Procedure Date Eye Exam Established Pt Office Consultation Ophthalmoscopy Office/outpatient Visit, Est Eye Exam, New Patient Advance Directives Directive Yes / No Effective Date File Name No Information Encounters Encounter Description Practice Location Reason(s) For Visit Diagnoses Date Provider Providers Copied on Encounter [facility], [id number] [place] [address] [address], [place], [place], [id number], [place] tel:[phone] [facility] No Information 9 Lyndsay Hoang. [address] [place], [place], [facility], . tel:[phone] Office Consultation [facility], [address], [place], [place], [id number], [place] tel:[phone] [facility] No Information [address] Lyndsay Hoang[address] [place], [address], [place]. tel:[phone] Referring Provider: Jameson Singh, [address] [place], [place] [address], [place], [place], [facility]. tel:[phone] Office/outpati ent Visit, Est [facility], [address], [place], [place], [id number], [place] tel:[phone] [facility] No Information 0 [address] Hira [address]ba. [address] [facility] , [address], [place], [address], [place]. tel:[phone] [facility], [address], [place], [place], [address], [place] tel:[phone] [facility] No Information [address] [facility] [address] [facility] , [address], [place], [address], [place]. tel:[phone] Family History Family Member Type Diagnosis Age [...]
--- OUTSIDE RECORDS SUMMARY | 2024-06-18 09:48 | XMS_ITS | Clinical Summary ---
Author Organization [facility] Address [address] [place] [address] Care Team Providers Care Programming Specialist Name Role Phone Wilmar Martin MD Primary Care Provider [phone] Source Comments [facility]),non-owned Affiliates and Associated Physician Practices is amultiple site organization consisting of ambulatory clinics and hospital sitesin [place], [place], [place] and [place]. This disclosure is being madepursuant to the Care Everywhere program and may not contain all information available regarding this patient. Last updated 17.[facility] Allergies Active Allergy Reactions Criticality Noted Date [...] cancer Immunizations Name Administration Dates Next Due Covid Trovit primary monovalent 12+ yr 0.3mL Pur ple [...] Comments Blood Pressure 153/96 02/28/2024 10:35 AM ENGLISH COMPOSITION INSTRUCTOR Pulse 71 02/28/2024 10:35 AM ENGLISH COMPOSITION INSTRUCTOR Temperature 36.6 C (97.8 F) 06/10/2020 9:44 AM CDT Respiratory Rate 16 09/27/2021 10:57 AM CDT Oxygen Saturation 98% 04/22/2019 10:59 AM ENGLISH COMPOSITION INSTRUCTOR Inhaled Oxygen Concentration 21% 01/29/2019 1 :25 PM ENGLISH COMPOSITION INSTRUCTOR Weight 75.1 kg (165 lb 9.6 oz) 02/28/2024 10:35 AM ENGLISH COMPOSITION INSTRUCTOR Height 167.6 cm (5' 6 ) 02/28/2024 10:35 AM ENGLISH COMPOSITION INSTRUCTOR Body Mass Index 26.73 02/28/2024 10:35 AM ENGLISH COMPOSITION INSTRUCTOR Plan of Treatment Upcoming Encounters Date Type Department Care Team (Late st Contact Info) Description 08/28/2024 10:30 AM CDT Office Visit [facility] - ENT [address] [place] [phone] Chris Jackson MD [address] [place] [address] Health Maintenance Due Date Last Done Comments [...] 04/26/2020 SCREENING FOR DIABETES 02/20/2022 9, 01/26/2019 DEPRESSION SCREENING 03/11/2024 INFLUENZA VACCINE (Season Ended) 2024 04/19/2019, 03/24/2007, 03/24/2007 COLONOSCOPY - COLON CA SCREENING 04/04/2031 04/04/2021 [...] PANEL (CALCIUM TOTAL) Routine 02/20/2019 2:29 AM ENGLISH COMPOSITION INSTRUCTOR from Last 3 Months or Most Recently Relevant to Health Maintenance Results * (ABNORMAL) BASIC METABOLIC PANEL (CALCIUM TOTAL) (02/20/2019 2:29 AM ENGLISH COMPOSITION INSTRUCTOR) BUN 11 7 - 26 mg/dL 02/20/2019 3:39 AM [facility] Creatinine 0.9 0.6 - 1.2 mg/dL 02/20/2019 3:39 AM [facility] Sodium 138 136 - 145 mmol/L 02/20/2019 3:39 AM [facility] Potassium 4.4 3.5 - 4.5 mmol/L 02/20/2019 3:39 AM [facility] Chloride 102 98 - 107 mmol/L 02/20/2019 3:39 AM [facility] CO2 25 22 - 29 mmol/L 02/20/2019 3:39 AM [facility] Glucose 121(H) 70 - 115 mg/dL 02/20/2019 3:39 AM [facility] Calcium 9.2 8.4 - 10.2 mg/dL 02/20/2019 3:39 AM [facility] Anion Gap 15 8 - 18 02/20/2019 3:39 AM [facility] BUN/Creatinine Ratio 12 7 - 23 02/20/2019 3:39 AM [facility] Osmolality Calculated 287 270 - 300 mOsm/kg 02/20/2019 3:39 AM [facility] eGFR >60 >60 mL/min/1.7 3 m2 02/20/2019 3:39 AM [facility] Blood BLOOD SPECIMEN / Unknown Lab Venipuncture / Unknown 02/20/2019 2:29 AM ENGLISH COMPOSITION INSTRUCTOR 02/20/2019 3:14 AM ENGLISH COMPOSITION INSTRUCTOR Amber Riggins MD LAB - CHEMISTRY MARYBETH [facility] Organization Address City/State/ZIP Co de Phone Number [facility] [address] [phone] from Last 3 Months or Most Recently Relevant to Health Maintenance Advance Directives * Full Code (Latest Code Status on File) Date Activated Date Inactivated Comments 02/19/2019 7:49 PM 02/20/2019 3:45 PM * Full Code Date Activated Date Inactivated Comments 02/19/2019 12:04 PM 02/19/2019 7:49 PM Care Teams Programming Specialist Relationship Specialty Start Date End Date Wilmar Martin MD [address] [place] [address] PCP - General 10/17/18
--- OUTSIDE RECORDS SUMMARY | 2024-06-18 09:48 | XMS_ITS ---
Author Organization [facility] Care Team Providers Care Window Sash Installer Name Role Phone Wilmar Martin MD Primary Care Provider [phone] Chris Jackson MD Unavailable [phone] Benton Trejo MD Unavailable [phone] Active Problems Problem Noted Date Diagnosed Date Primary osteoarthritis of left shoulder 02/24/20 21 Overview (02/23/2021): Added automatically from request for surgery [id number] Cancer of anterior two-thirds of tongue 11/24/19 [...]
--- OUTSIDE RECORDS SUMMARY | 2024-06-18 09:48 | XMS_ITS | Referral Summary ---
Author Organization [facility] Care Team Providers Care Suit Attendant Name Role Phone Wilmar Martin MD Primary Care Provider + [phone] Chris Jackson MD Unavailable [phone] Benton Trejo MD Unavailable [phone] Allergies Active Allergy Reactions Criticality Noted [...] 1 tablet (75 mcg total) by mouth analytics specialist before breakfast 2 Active acetaminophen (TYLENOL) 500 [...] (02/23/2021): Added automatically from request for surgery [id number] Cancer of anterior two-thirds of tongue 11/24/19 [...] on file Legal Sex Male 1:00 AM FORWARD AIR CONTROLLER/AIR OFFICER Gender Identity Not on file Sexual Orientation Not on file Last Filed Vital Signs Vital Sign Reading Time Taken Comments Blood Pressure 140/87 12/05/2023 9:49 AM CDT Pulse 59 12/05/2023 9:49 AM CDT Temperature 36.1 C (97 F) 05/01/2021 1:43 PM FORWARD AIR CONTROLLER/AIR OFFICER Respiratory Rate 14 05/01/2021 2:55 PM FORWARD AIR CONTROLLER/AIR OFFICER Oxygen Saturation 99% 12/05/2023 9:49 AM CDT Inhaled Oxygen Concentration - - Weight 73.5 kg (162 lb) 12/05/2023 9:49 AM CDT Height 170.2 cm (5' 7 ) 04/18/2021 3:05 PM FORWARD AIR CONTROLLER/AIR OFFICER Body Mass Index 25.37 04/18/2021 3:05 PM FORWARD AIR CONTROLLER/AIR OFFICER Plan of Treatment Not on file Medical Devices Implanted Type Area Therapeutic Support Staff Device Identifier Shelf Expiration Date Model / Serial / Lot [employer] [id number] 14mm 130mm Shoulder 42d Stem Humeral Trabecular Metal Tivanium - [id number] Implanted:Qty: 1 on 05/01/2021 by Jason Chang MD at [facility] [employer] [id number] 12/28/2029 [id number] / / [id number] [employer] [id number] Lotus 3 Peg Monoblock Shoulder 4 Component Glenoid Sterile - [id number] Implanted:Qty: 1 on 05/01/2021 by Jason Chang MD at [facility] [employer] [id number] 12/12/2028 [id number] / / [id number] [employer] 6191-1-010 Simplex P Radiopaque Full Dose Cement Bone Sterile - [id number] Implanted:Qty: 1 on 05/01/2021 by Jason Chang MD at [facility] [employer] [id number] 06/09/2023 6191-1-010 / / [id number] [employer] [id number] 52mm 19mm Modular Shoulder Offset Head Humeral - [id number] Implanted:Qty: 1 on 05/01/2021 by Jason Chang MD at [facility] [employer] [id number] 11/08/2028 [id number] / / [id number] [employer] [id number] Steinmann 3.2mm 9in Guide Pin Orthopedic - [id number] Implanted:Qty: 1 on 05/01/2021 by Jason Chang MD at [facility] [employer] [id number] / / [id number] [place] [address] [place] [address] [place] [address] MEDICARE FOR LIFE Care Teams Suit Attendant Relationship Specialty Start Date End Date Wilmar Martin MD PCP - General 09/08/19 Chris Jackson MD [address] [place] [address] Surgeon Otolaryngology 11/23/20 Benton Trejo MD [address] [place] [address] Radiation Oncologist Radiation Oncology 10/31/23
--- OUTSIDE RECORDS SUMMARY | 2024-06-18 09:48 | XMS_ITS ---
Author Organization [facility] Address [address] [facility] [place] [address] Care Team Providers Care Tallow Pumper Name Role Phone Wilmar Martin MD Primary Care Provider [phone] Active Problems Problem Noted Date Diagnosed Date 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 Tongue cancer Current Oncology Plans No current plan information found. Past Plans No past plan information found. Radiation Treatments * No radiation treatments are documented for this patient in [facility]. Treatments may have been administered in another system. Lifetime Dose Tracking * Chemical Lifetime Dose Automatic Entry Manual Entr y Dose Length Product 717 mGy-cm 717 mGy-cm 0 mGy-cm
--- OUTSIDE RECORDS SUMMARY | 2024-06-18 09:48 | XMS_ITS | Clinical Summary ---
Author Organization [facility] Address [address] [address] Care Team Providers Care Admissions Evaluator Name Role Phone Wilmar Martin MD Primary Care Provider [phone] Allergies Active Allergy Reactions Criticality Noted Date [...] on file Legal Sex Male 4:07 PM GROUP SEGMENT CONSULTANT Gender Identity Not on file Sexual Orientation [...] Description 09/25/2024 9:00 AM CDT Office Visit [facility] Oncology and Hematology - [place] [address] [facility] [address] [place] [address] Vinny August MD [address] [facility] [address] [place] [address] Health Maintenance Due Date Last [...] Colorectal Cancer Screening 04/04/[address] [place] [address] MEDICARE PART A AND B FOR LIFE Care Teams Admissions Evaluator Relationship Specialty Start Date End Date Wilmar Martin MD [address] [place] [address] PCP - General Family Practice 06/13/22
--- OUTSIDE RECORDS SUMMARY | 2024-06-18 09:48 | XMS_ITS | Clinical Summary ---
Author Organization [facility] Care Team Providers Care Locomotive Engineer Electric Name Role Phone Wilmar Martin MD Primary Care Provider + [phone] Chris Jackson MD Unavailable [phone] Benton Trejo MD Unavailable [phone] Allergies Active Allergy Reactions Criticality Noted [...] 1 tablet (75 mcg total) by mouth computer repair technician before breakfast 2 Active acetaminophen (TYLENOL) 500 [...] (02/23/2021): Added automatically from request for surgery [id number] Cancer of anterior two-thirds of tongue 11/24/19 [...] on file Legal Sex Male 1:00 AM MEMORIAL DESIGNER Gender Identity Not on file Sexual Orientation Not on file Obstetrics History Last Filed Vital Signs Vital Sign Reading Time Taken Comments Blood Pressure 140/87 12/05/2023 9:49 AM CDT Pulse 59 12/05/2023 9:49 AM CDT Temperature 36.1 C (97 F) 05/01/2021 1:43 PM MEMORIAL DESIGNER Respiratory Rate 14 05/01/2021 2:55 PM MEMORIAL DESIGNER Oxygen Saturation 99% 12/05/2023 9:49 AM CDT Inhaled Oxygen Concentration - - Weight 73.5 kg (162 lb) 12/05/2023 9:49 AM CDT Height 170.2 cm (5' 7 ) 04/18/2021 3:05 PM MEMORIAL DESIGNER Body Mass Index 25.37 04/18/2021 3:05 PM MEMORIAL DESIGNER Plan of Treatment Health Maintenance Due Date [...] Fall Risk Assessment 05/01/2022 05/01/2021 Influenza Vaccine (Season Ended) 2024 04/19/19, 03/24/2007 DTaP/Tdap/Td Vaccine (2 - Td or Tdap) 11/01/2025 Medical Devices Implanted Type Area Dull Coat Mill Operator Device Identifier Shelf Expiration Date Model / Serial / Lot [employer] [id number] 14mm 130mm Shoulder 42d Stem Humeral Trabecular Metal Tivanium - [id number] Implanted:Qty: 1 on 05/01/2021 by Jason Chang MD at [facility] [employer] [id number] 12/28/2029 [id number] / / [id number] [employer] [id number] [place] 3 Peg Monoblock Shoulder 4 Component Glenoid Sterile - [id number] Implanted:Qty: 1 on 05/01/2021 by Jason Chang MD at [facility] [employer] [id number] 12/12/2028 [id number] / / [id number] [employer] 6191-1-010 Simplex P Radiopaque Full Dose Cement Bone Sterile - [id number] Implanted:Qty: 1 on 05/01/2021 by Jason Chang MD at [facility] [employer] [id number] 06/09/2023 6191-1-010 / / [id number] [employer] [id number] 52mm 19mm Modular Shoulder Offset Head Humeral - [id number] Implanted:Qty: 1 on 05/01/2021 by Jason Chang MD at [facility] [employer] [id number] 11/08/2028 [id number] / / [id number] [employer] [id number] Steinmann 3.2mm 9in Guide Pin Orthopedic - [id number] Implanted:Qty: 1 on 05/01/2021 by Jason Chang MD at [facility] [employer] [id number] / / [id number] [place] [address] MEDICARE [facility] [place] [address] [place] [address] MEDICARE FOR LIFE Care Teams Locomotive Engineer Electric Relationship Specialty Start Date End Date Wilmar Martin MD PCP - General 09/08/19 Chris Jackson MD [address] [place] [address] Surgeon Otolaryngology 11/23/20 Benton Trejo MD [address] [place] [address] Radiation Oncologist Radiation Oncology 10/31/23
--- OUTSIDE RECORDS SUMMARY | 2024-06-18 09:48 | XMS_ITS | Clinical Summary ---
Author Organization [facility] Address [address] [place] [address] Care Team Providers Care Assault Amphibious Vehicle Officer Name Role Phone Wilmar Martin MD Primary Care Provider [phone] Allergies Active Allergy Reactions Criticality Noted Date [...] Comments Blood Pressure 100/72 04/04/2021 9:38 AM HERBARIUM WORKER Pulse 63 04/04/2021 9:38 AM HERBARIUM WORKER Temperature 36.6 C (97.8 F) 04/04/2021 9:38 AM HERBARIUM WORKER Respiratory Rate 16 04/04/2021 9:38 AM HERBARIUM WORKER Oxygen Saturation 100% 04/04/2021 9:38 AM HERBARIUM WORKER Inhaled Oxygen Concentration - - Weight 72.6 kg (160 lb) 03/22/2021 3:35 PM HERBARIUM WORKER Height 167.6 cm (5' 6 ) 03/22/2021 3:35 PM HERBARIUM WORKER Body Mass Index 25.82 03/22/2021 3:35 PM HERBARIUM WORKER Plan of Treatment Health Maintenance Due Date Last Done Comments Hepatitis C 08[birth year]1969 DTaP, Tdap and Td Vaccines ( 1 - Tdap) 08/16/1970 Annual Medicare Wellness Visit 08/16/2016 Zoster Vaccines (2 of 2) 06/14/2019 04/19/2019 Pneumococcal Vaccine: 65+ Years (2 of 2 - PCV) 04/19/2020 04/19/2019 COVID-19 Vaccine (2 - 2023-2 5 season) 2023 04/26/2020 RSV Immunization or 60+ Years (1 - [...] this topic Medical Devices Implanted Type Area Digital Advertising Specialist Device Identifier Shelf Expiration Date Model / Serial / Lot Knees Procedures Procedure Name Priority Date/Time Associated Diagnosis Comments COLONOSCOPY Routine 04/04/2021 9:18 AM HERBARIUM WORKER from Last 3 Months or Most Recently Relevant to Health Maintenance Results * Colonoscopy (04/04/2021 9:18 AM HERBARIUM WORKER) Narrative Rico Mejia MD - 04/04/2021 9:18 AM HERBARIUM WORKER Rico Mejia MD 04/04/2021 9:39 AM RICO [...] the left lateral decubitus position, the Olympus [id number] colonoscope was introduced into the rectum and [...] Relevant to [place] [address] MEDICARE [facility] Care Teams Assault Amphibious Vehicle Officer Relationship Specialty Start Date End Date Wilmar Martin MD [address] [address] PCP - General FAMILY PRACTICE 04/04/21
[2024-06-18 09:50] LABS: Hematocrit 37.5 % (42.0-52.0); Hemoglobin 12.7 g/dL (14.0-18.0); Mean Corpuscular HGB Conc 33.9 g/dl (32-36); Mean Corpuscular Hemoglobin 30.5 pg (26-34); Mean Corpuscular Volume 89.9 fl (80-100); Mean Platelet Volume 9.2 fl (7.4-10.4); Platelet Count Result 186 k/mm3 (150-375); Red Blood Count 4.17 M/mm3 (4.6-6.20); Red Cell Distribution Width 13.2 % (11.5-14.5); White Blood Count 4.8 K/mm3 (4.5-10.0)
[2024-06-18 12:43] LABS: Prostate Specific Antigen 1.6 ng/mL (< OR = 4.0)
[2024-06-18 13:51] LABS: Folic Acid > 20.0 ng/mL (2.76->20); Vitamin B12 > 1000.0 pg/mL (239-931)
[2024-06-18 16:09] LABS: Iron 133 ug/dL (49-181)
[2024-06-18 16:24] LABS: Percent Iron Saturation 38 % (20-50)
[2024-06-18 18:10] LABS: Hemoglobin A1C 5.4 % (<5.7)
== END 2024-06-18 09:28 | disposition home or self-care (01) ==
PROVIDERS: PCP Family Medicine; Visit Provider Nurse Practitioner Family
DX: R73.09 Other abnormal glucose (principal); Z12.5 Encounter for screening for malignant neoplasm of prostate; D64.9 Anemia, unspecified
CPT/HCPCS: 36415; 82607; 82746; 83036; 83540; 83550; 84153; 85027; G0103

== ENCOUNTER 2024-07-15 08:47 | Outpatient (CLI) | payer MEDICARE, OTHER, SELFPAY ==
--- NOTE | ~2024-07-15 | MR_ITS ---
MRI of the cervical spine Clinical History: Radiculopathy Technique: Axial T2-weighted and gradient images, and sagittal T1-weighted, T2-weighted, and STIR jeremy ges were acquired. Findings: There is mild reversal normal cervical lordosis. No fracture or subluxation evident. No osvaldo picious bone marrow signal noted. There is reactive marrow edema in the C6 and C7 vertebral bodies du e to underlying degenerative disc disease. At C2-C3, there is minimal disc osteophyte complex. There is probable mild bilateral neural foraminal narrowing. No canal stenosis or cord compression. At C3-C4, there is degenerative disc narrowing with facet arthropathy. There is bilateral neural fora maurilio narrowing. No spinal canal stenosis or cord compression. At C4-C5, there is advanced degenerative disc narrowing with bilateral facet arthropathy. There is bi lateral severe neural foraminal narrowing. No canal stenosis or cord compression. At C5-C6, there is disc osteophyte complex with mild canal stenosis but no kailee cord compression. Th ere is severe bilateral neural foraminal narrowing. At C6-C7, there is severe degenerative disc narrowing with disc osteophyte complex. There is moderate canal stenosis and mild to moderate cord compression. There is severe bilateral neural foraminal celio rowing. No abnormal signal seen in the spinal cord. Paravertebral soft tissues are unremarkable. Impression: Severe degenerative spondylosis at C6-C7, with moderate canal stenosis and mild to moderate cord comp ression. Multilevel advanced bilateral neural foraminal narrowing, as detailed above. Reviewed, dictated and finalized at [facility]. Impression: Severe degenerative spondylosis at C6-C7, with moderate canal stenosis and mild to moderate cord compression. Multilevel advanced bilateral neural foraminal narrowing, as detailed above.
== END 2024-07-15 08:48 | disposition home or self-care (01) ==
LOC: MICIMG 08:47
PROVIDERS: PCP Family Medicine; Visit Provider Orthopaedic Surgery
DX: M47.22 Other spondylosis with radiculopathy, cervical region (principal)
CPT/HCPCS: 72141

== ENCOUNTER 2024-09-23 10:10 | Outpatient (CLI) | payer MEDICARE, OTHER, SELFPAY ==
--- OUTSIDE RECORDS SUMMARY | 2024-09-23 10:25 | XMS_ITS | Clinical Summary ---
Author Organization [facility] Address [address] [place] [address] Care Team Providers Care Manager Studio Name Role Phone Wilmar Martin MD Primary Care Provider [phone] Allergies Active Allergy Reactions Criticality Noted Date [...] Comments Blood Pressure 100/72 04/04/2021 9:38 AM CRIMINAL JUSTICE PROGRAM DIRECTOR Pulse 63 04/04/2021 9:38 AM CRIMINAL JUSTICE PROGRAM DIRECTOR Temperature 36.6 C (97.8 F) 04/04/2021 9:38 AM CRIMINAL JUSTICE PROGRAM DIRECTOR Respiratory Rate 16 04/04/2021 9:38 AM CRIMINAL JUSTICE PROGRAM DIRECTOR Oxygen Saturation 100% 04/04/2021 9:38 AM CRIMINAL JUSTICE PROGRAM DIRECTOR Inhaled Oxygen Concentration - - Weight 72.6 kg (160 lb) 03/22/2021 3:35 PM CRIMINAL JUSTICE PROGRAM DIRECTOR Height 167.6 cm (5' 6) 03/22/2021 3:35 PM CRIMINAL JUSTICE PROGRAM DIRECTOR Body Mass Index 25.82 03/22/2021 3:35 PM CRIMINAL JUSTICE PROGRAM DIRECTOR Plan of Treatment Health Maintenance Due Date Last Done Comments Hepatitis C 08/16/1969 DTaP, Tdap and Td Vaccines ( 1 - Tdap) 08/16/1970 Annual Medicare Wellness Visit 08/16/2016 Zoster Vaccines (2 of 2) 06/14/2019 04/19/2019 Pneumococcal Vaccine: 50+ Years (2 of 2 - PCV) 04/19/2020 [...] this topic Medical Devices Implanted Type Area Cuff Runner Device Identifier Shelf Expiration Date Model / Serial / Lot Knees Procedures Procedure Name Priority Date/Time Associated Diagnosis Comments COLONOSCOPY Routine 04/04/2021 9:18 AM CRIMINAL JUSTICE PROGRAM DIRECTOR from Last 3 Months or Most Recently Relevant to Health Maintenance Results * Colonoscopy (04/04/2021 9:18 AM CRIMINAL JUSTICE PROGRAM DIRECTOR) Narrative Rico Mejia MD - 04/04/2021 9:18 AM CRIMINAL JUSTICE PROGRAM DIRECTOR Rico Mejia MD 04/04/2021 9:39 AM R[place] [...] the left lateral decubitus position, the Olympus [id number] colonoscope was introduced into the rectum and [...] Relevant to Health [place] [address] [facility] Care Teams Manager Studio Relationship Specialty Start Date End Date Wilmar Martin MD [address] [place] [address] PCP - General FAMILY PRACTICE 04/04/21
--- OUTSIDE RECORDS SUMMARY | 2024-09-23 10:25 | XMS_ITS | Continuity of Care Document ---
Author Organization [facility] Address [address] [place] [address] Phone Care Team Providers Care Lock Tender Chief Operator Name Role Phone Viktor Umana Unavailable Unavailable Procedures Procedure Date Eye Exam Established Pt Office Consultation Ophthalmoscopy Office/outpatient Visit, Est Eye Exam, New Patient Advance Directives Directive Yes / No Effective Date File Name No Information Encounters Encounter Description Practice Location Reason(s) For Visit Diagnoses Date Provider Providers Copied on Encounter [facility], [id number] [place] [address] [address], [place], [place], [id number], [place] tel:[phone] [facility] No Information 9 Lyndsay Hoang. [address] [place], [place], [facility], . tel:[phone] Office Consultation [facility], [address], [place], [place], [id number], [place] tel:[phone] [facility] No Information 7 Lyndsay Hoang. [address] [place], [address], [place]. tel:[phone] Referring Provider: Jameson Singh, [address] [place], [place] [address], [place], [place], [facility]. tel:[phone] Office/outpati ent Visit, Est [facility], [address], [place], [place], [id number], [place] tel:[phone] [facility] No Information 0 [address]. [address] [facility] [address] , [address], [place], [address], [place]. tel:[phone] [facility], [address], [place], [place], [id number], [place] tel:[phone] [facility] No Information [address] [facility] [address] [facility] , [address], [place], [address], [place]. tel:[phone] Family History Family Member Type Diagnosis Age At Onset No Information Payers Payer name Insurance type Covered republican ID Authoriza tion(s) No Information Social History [...]
--- OUTSIDE RECORDS SUMMARY | 2024-09-23 10:25 | XMS_ITS | Clinical Summary ---
Author Organization [facility] HealthCare Care Team Providers Care Mold Hoister Name Role Phone Wilmar Martin MD Primary Care Provider [phone] Chris Jackson MD Unavailable [phone] Benton Trejo MD Unavailable [phone] Allergies Active Allergy Reactions Criticality Noted [...] 1 tablet (75 mcg total) by mouth loading rack supervisor before breakfast 2 Active acetaminophen (TYLENOL) 500 [...] (02/23/2021): Added automatically from request for surgery [id number] Cancer of anterior two-thirds of tongue 11/24/19 [...] on file Legal Sex Male 1:00 AM EAR SPECIALIST Gender Identity Not on file Sexual Orientation Not on file Obstetrics History Last Filed Vital Signs Vital Sign Reading Time Taken Comments Blood Pressure 140/87 12/05/2023 9:49 AM CDT Pulse 59 12/05/2023 9:49 AM CDT Temperature 36.1 C (97 F) 05/01/2021 1:43 PM EAR SPECIALIST Respiratory Rate 14 05/01/2021 2:55 PM EAR SPECIALIST Oxygen Saturation 99% 12/05/2023 9:49 AM CDT Inhaled Oxygen Concentration - - Weight 73.5 kg (162 lb) 12/05/2023 9:49 AM CDT Height 170.2 cm (5' 7) 04/18/2021 3:05 PM EAR SPECIALIST Body Mass Index 25.37 04/18/2021 3:05 PM EAR SPECIALIST Plan of Treatment Health Maintenance Due Date [...] Risk Assessment 05/01/2022 05/01/2021 Influenza Vaccine (#1) 2024 04/19/2019, 2007 DTaP/Tdap/Td Vaccine (2 - Td or Tdap) 11/01/2025 Medical Devices Implanted Type Area Folding Rules Printing Machine Operator Device Identifier Shelf Expiration Date Model / Serial / Lot [employer] [id number] 14mm 130mm Shoulder 42d Stem Humeral Trabecular Metal Tivanium - [id number] Implanted:Qty: 1 on 05/01/2021 by Jason Chang MD at [facility] [employer] [id number] 12/28/2029 [id number] / / [id number] [employer] [id number] [place] 3 Peg Monoblock Shoulder 4 Component Glenoid Sterile - [id number] Implanted:Qty: 1 on 05/01/2021 by Jason Chang MD at [facility] [employer] [id number] 12/12/2028 [id number] / / [id number] [employer] 6191-1-010 Simplex P Radiopaque Full Dose Cement Bone Sterile - [id number] Implanted:Qty: 1 on 05/01/2021 by Jason Chang MD at [facility] [employer] [id number] 06/09/2023 6191-1-010 / / [id number] [employer] [id number] 52mm 19mm Modular Shoulder Offset Head Humeral - [id number] Implanted:Qty: 1 on 05/01/2021 by Jason Chang MD at [facility] [employer] [id number] 11/08/2028 [id number] / / [id number] [employer] [id number] [place] 3.2mm 9in Guide Pin Orthopedic - [id number] Implanted:Qty: 1 on 05/01/2021 by Jason Chang MD at [facility] [employer] [id number] / / [id number] [place] [address] MEDICARE [facility] FOR LIFE [place] [address] MEDICARE FOR LIFE Care Teams Mold Hoister Relationship Specialty Start Date End Date Wilmar Martin MD PCP - General 09/08/19 Chris Jackson MD [address] [place] [address] Surgeon Otolaryngology 11/23/20 Benton Trejo MD [address] [place] [address] Radiation Oncologist Radiation Oncology 10/31/23
--- OUTSIDE RECORDS SUMMARY | 2024-09-23 10:25 | XMS_ITS | Referral Summary ---
Author Organization [facility] HealthCare Care Team Providers Care Drilling Fluids Specialist Name Role Phone Wilmar Martin MD Primary Care Provider + [phone] Chris Jackson MD Unavailable [phone] Benton Trejo MD Unavailable Allergies Active Allergy Reactions Criticality Noted Date [...] 1 tablet (75 mcg total) by mouth varnish filterer before breakfast 2 Active acetaminophen (TYLENOL) 500 [...] (02/23/2021): Added automatically from request for surgery [id number] Cancer of anterior two-thirds of tongue 11/24/19 [...] on file Legal Sex Male 1:00 AM CLINIC LPN Gender Identity Not on file Sexual Orientation Not on file Last Filed Vital Signs Vital Sign Reading Time Taken Comments Blood Pressure 140/87 12/05/2023 9:49 AM CDT Pulse 59 12/05/2023 9:49 AM CDT Temperature 36.1 C (97 F) 05/01/2021 1:43 PM CLINIC LPN Respiratory Rate 14 05/01/2021 2:55 PM CLINIC LPN Oxygen Saturation 99% 12/05/2023 9:49 AM CDT Inhaled Oxygen Concentration - - Weight 73.5 kg (162 lb) 12/05/2023 9:49 AM CDT Height 170.2 cm (5' 7) 04/18/2021 3:05 PM CLINIC LPN Body Mass Index 25.37 04/18/2021 3:05 PM CLINIC LPN Plan of Treatment Not on file Medical Devices Implanted Type Area Snowsport Instructor Device Identifier Shelf Expiration Date Model / Serial / Lot [employer] [id number] 14mm 130mm Shoulder 42d Stem Humeral Trabecular Metal Tivanium - [id number] Implanted:Qty: 1 on 05/01/2021 by Jason Chang MD at [facility] [employer] [id number] 12/28/2029 [id number] / / [id number] [employer] [id number] [place] 3 Peg Monoblock Shoulder 4 Component Glenoid Sterile - [id number] Implanted:Qty: 1 on 05/01/2021 by Jason Chang MD at [facility] [employer] [id number] 12/12/2028 [id number] / / [id number] [employer] 6191-1-010 Simplex P Radiopaque Full Dose Cement Bone Sterile - [id number] Implanted:Qty: 1 on 05/01/2021 by Jason Chang MD at [facility] [employer] [id number] 06/09/2023 6191-1-010 / / [id number] [employer] [id number] 52mm 19mm Modular Shoulder Offset Head Humeral - [id number] Implanted:Qty: 1 on 05/01/2021 by Jason Chang MD at [facility] [employer] [id number] 11/08/2028 [id number] / / [id number] [employer] 129054 [place] 3.2mm 9in Guide Pin Orthopedic - [id number] Implanted:Qty: 1 on 05/01/2021 by Jason Chang MD at [facility] [employer] [id number] / / [id number] [place] [address] [place] [address] [place] [address] MEDICARE FOR LIFE Care Teams Drilling Fluids Specialist Relationship Specialty Start Date End Date Wilmar Martin MD PCP - General 09/08/19 Chris Jackson MD [address] [place] [address] Surgeon Otolaryngology 11/23/20 Benton Trejo MD [address] [place] [address] Radiation Oncologist Radiation Oncology 10/31/23
--- OUTSIDE RECORDS SUMMARY | 2024-09-23 10:25 | XMS_ITS ---
Author Organization [facility] Health Address [address] [place] [address] Care Team Providers Care Soda Drier Feeder Name Role Phone Wilmar Martin MD Primary Care Provider [phone] Active Problems Problem Noted Date Diagnosed Date Tongue cancer Current Treatment and Therapy Plans No current plan information found. Past Treatment and Therapy Plans No past plan information found. Lifetime Dose Tracking * Chemical Lifetime Dose Automatic Entry Manual Entr y Dose Length Product 717 mGy-cm 717 mGy-cm 0 mGy-cm Resolved Problems Problem Noted Date Diagnosed Date Resolved Date 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 08/29/2024
--- OUTSIDE RECORDS SUMMARY | 2024-09-23 10:25 | XMS_ITS ---
Author Organization [facility] HealthCare Care Team Providers Care Riding Silks Custodian Name Role Phone Wilmar Martin MD Primary Care Provider + [phone] Chris Jackson MD Unavailable [phone] Benton Trejo MD Unavailable [phone] Active Problems Problem Noted Date Diagnosed Date Primary osteoarthritis of left shoulder 02/24/20 21 Overview (02/23/2021): Added automatically from request for surgery [id number] Cancer of anterior two-thirds of tongue 11/24/19 [...]
[2024-09-23 10:29] LABS: Hematocrit 37.9 % (42.0-52.0); Hemoglobin 13.0 g/dL (14.0-18.0); Immature Granulocyte Percent A 0.3 % (0-0.5); Lymphocytes Absolute Auto 0.87 K/mm3 (0.9-3.2); Mean Corpuscular HGB Conc 34.3 g/dl (32-36); Mean Corpuscular Hemoglobin 30.4 pg (26-34); Mean Corpuscular Volume 88.6 fl (80-100); Nucleated Red Blood Cells Absolute Auto 0.000 K/mm3 (0.0-0.012); Nucleated Red Blood Cells Perc 0.0 % (0.0-0.2); Platelet Count Result 171 k/mm3 (150-375); Red Blood Count 4.28 M/mm3 (4.6-6.20); White Blood Count 3.6 K/mm3 (4.5-10.0)
[2024-09-23 13:25] LABS: Alanine Aminotransferase 26 U/L (6-50); Albumin Level 4.4 g/dL (3.5-5.1); Alkaline Phosphatase 61 U/L (38-126); Anion Gap 7 mmol/L (4-12); Aspartate Amino Transferase 45 U/L (17-59); Bilirubin,Total 0.5 mg/dL (0.2-1.3); Blood Urea Nitrogen 17 mg/dL (9-20); Calcium 9.5 mg/dL (8.4-10.2); Carbon Dioxide 25 mmol/L (22-30); Chloride 104 mmol/L (98-107); Estimated Glomerular Filt Rate > 60; Glucose 100 mg/dL (65-110); Potassium 4.4 mmol/L (3.4-5.0); Sodium 136 mmol/L (137-145); Total Protein 7.3 g/dL (6.3-8.2)
[2024-09-23 13:27] LABS: Iron 105 ug/dL (49-181)
[2024-09-23 13:37] LABS: Percent Iron Saturation 31 % (20-50)
[2024-09-23 14:08] LABS: Ferritin 195.00 ng/mL (11.1-264)
[2024-09-23 14:37] LABS: Vitamin B12 928.0 pg/mL (239-931)
== END 2024-09-23 10:11 | disposition home or self-care (01) ==
PROVIDERS: PCP Family Medicine; Visit Provider Internal Medicine Hematology & Oncology
DX: D72.819 Decreased white blood cell count, unspecified (principal); D64.9 Anemia, unspecified
CPT/HCPCS: 36415; 80053; 82607; 82728; 82746; 83540; 83550; 85025

== ENCOUNTER 2024-10-16 10:11 | Emergency (ER) | payer MEDICARE, OTHER, SELFPAY ==
--- NOTE | 2024-10-16 10:13 | ED_ITS ---
HPI - Skin/Abscess/Foreign Bdy General Chief complaint: Skin/Abscess/Foreign Body Stated complaint: Insect Bite Rt Hand Time Seen by Provider: 10/16/24 10:12 Source: patient Mode of arrival: ambulatory Limitations: no limitations History of Present Illness HPI narrative: Patient is a 74-year-old male who presents with wasp sting to right hand. Reports this started last night and hand started immediately swelling. Patient states swelling in hand has gone down a little bit but is now and right forearm along with some redness and warmth. Patient has an EpiPen based on previous bee sting allergic reaction. Patient did not use EpiPen but has taken Benadryl. Denies any chest pain, shortness of breath, throat or mouth swelling. Related Data Home Medications ?Medication ?Instructions ?Recorded ?Confirmed ?Last Taken ?Type multivitamin with minerals-folic 1 tablet PO DAILY 11/28/22 10/16/24 04/03/24 History acid 0.4 mg tablet aspirin 81 mg tablet,delayed 81 mg PO DAILY 04/02/24 10/16/24 04/03/24 History release (Adult Aspirin Regimen) Allergies Allergy/AdvReac Type Severity Reaction Status Date / Time bee venom protein (honey bee) Allergy Severe Swelling Verified 10/16/24 10:13 codeine AdvReac Intermediate Nausea and Verified 10/16/24 10:13 Vomiting Review of Systems 2 Review of Systems: All systems reviewed & are unremarkable except as noted in HPI and below Constitutional: Constitutional: Denies body ache(s), Denies chills, Denies fatigue, Denies fever(s), Denies headache(s), Denies malaise and Denies weakness Eyes: Eyes: Denies blurry vision, Denies irritation and Denies loss of vision ENT: Denies otalgia, Denies headache(s), Denies nasal discharge, Denies sinus pain and Denies sore throat Cardiovascular: Cardiovascular: Denies chest pain, Denies irregular heart rhythm and Denies dyspnea Respiratory: Respiratory: Denies dyspnea Gastrointestinal: Gastrointestinal: Denies abdominal pain, Denies melena, Denies hematochezia, Denies diarrhea, Denies nausea and Denies vomiting Musculoskeletal: Musculoskeletal: Denies back pain, Denies myalgias and Denies arthralgias Integumentary/Breasts: Skin/Breast: Denies pruritus, Reports erythema, Denies rash and Reports skin swelling Neurologic: Denies headache(s), Denies loss of vision and Denies weakness Psychiatric: Psychiatric: Reports no additional psychiatric complaints Endocrine: Endocrine: Denies fatigue PMF Past Medical History Medical History Carpal tunnel syndrome of right wrist Carpal tunnel syndrome Adhesive capsulitis of right knee Cubital tunnel syndrome Phalanx, distal fracture of finger Hammer toes of both feet Right foot pain Left foot pain Left ankle pain Right ankle pain Squamous cell carcinoma of tongue Rupture of left biceps tendon BMI 26.0-26.9,adult Septic bursitis of elbow Cerumen impaction BMI 25.0-25.9,adult Elevated TSH Effusion of left knee DJD of left shoulder History of cancer tounge Arthritis Dry mouth Screening PSA (prostate specific antigen) Bilateral primary osteoarthritis of knee Anemia Male erectile dysfunction, unspecified Memory loss Mixed hyperlipidemia Surgical History Surgical History H/O neck dissection S/P partial glossectomy Presence of left artificial knee joint History of right knee joint replacement History of left knee replacement Total knee replacement status History of lymph node excision right side of neck Family History Family History Father Family history of arthritis Arthritis Mother Arthritis Sibling Arthritis Other Cerebrovascular accident Social History Social History Smoking status: Never smoker Second hand tobacco smoke exposure: No Additional smoking assessment comments: DENIES ANY FORM OF TOBACCO USE Alcohol intake: current Drinks per week: 2 Alcohol use details: 1-2 per week Substance use: never Substance use type: does not use Do You Feel Safe in your Home?: Yes Lack of Transportation: No Lack of Food: Never True Current Housing: I Have Housing Concerned About Future Housing: No Difficulty Paying Gas/Electric Bills: No Difficulty Paying for Meds: No Currently Unemployed: No Education: Master's Degree or Higher Difficulty w/ Childcare or Family Care: No Living arrangements: with family Occupation/Education: retired Additional occupation/education comments: 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 There is no relevant family history pertinent to the presenting complaint. Exam 2 Const: General: cooperative, healthy appearing, comfortable, no acute distress and well nourished Nutritional Appearance: well nourished O rientation/consciousness: patient oriented x3 Limitations: no limitations HENMT: Head: normal to inspection, normocephalic and atraumatic Ears: h earing grossly normal bilaterally and external ears normal Face/Nose/Sinus: N ormal external nose present, normal facial exam and face symmetric Face and sinus: normal facial exam and face symmetric Mouth: Yes lip normal Eyes: General: appearance normal, both eyes and all related structures A lignment and Position: alignment normal and position normal Periorbital: p eriorbital findings normal Eyelids: eyelids normal Pupils: Equal, round and reactive pupils present EOM: EOMs intact bilaterally Neck: Neck: normal visual inspection, full ROM and supple Chest: Chest palpation & inspection: normal inspection of the chest Resp: Effort & Inspection: normal respiratory effort and able to speak in complete sentences Auscultation: clear to auscultation bilaterally Cardio: Rate: regular rate Rhythm: regular rhythm Heart sounds: S1 normal heart sound present and S2 normal heart sound present GI: Inspection: normal to inspection Skin: General skin exam: normal color and no rashes or lesions noted Neuro: General: patient oriented x3 and moves all extremities Cranial nerves: Yes Equal, round and reactive pupils present Speech: normal speech Gait exam (Neuro): Normal gait present Extrem: General: normal to inspection, full ROM and no edema Left upper extremity: elbow/forearm Elbow/forearm/wrist images: 1. significant pitting edema, erythema and warmth 2. erythema and warmth with mild swellin g 3. erythema and warmth with mild swellin g Psych: Appearance: grossly normal and well kempt Mental Status: mental status grossly normal Speech and movement: Normal speech and movement present Affect: normal affect Attitude: cooperative Thought process: Normal thought process present Course Course Emergency Course: Patient is aware of diagnosis, understands and agrees to treatment plan. Anticipatory guidance given. Patient agrees to follow-up as directed and is aware of reasons to seek care at the emergency department. Portions of this record may have been created with voice recognition software Level of Care: Express Care Visit Vital Signs Vital signs: Reviewed MDM - Skin/Abscess/Foreign Bdy MDM Narrative Medical decision making narrative: Patient given IM steroid due to significance of swelling. PMS intact. Patient does have ring on 4th digit that he states has not came off in years. Patient reports he has had multiple surgeries with ring still on finger along with carpal tunnel surgery. No significant swelling to that finger. Will also treat with antibiotics and oral steroids Pt well hydrated appearing, in no respiratory distress, hemodynamically stable. Recommend supportive care. The patient is stable at time of discharge the clinical impression was discussed and the patient was given the opportunity to ask questions, which were addressed as completely as possible given the information available at present. Anticipatory guidance and return to care precautions were discussed and the importance of primary care follow-up was stressed and encouraged. The patient voiced understanding of the plan, indications to return, and the need for follow-up. Exam findings show no acute concerns or changes Patient is appropriate for outpatient treatment and follow-up. Differential Diagnosis Differential diagnosis: Likely allergic reaction to drug, cellulitis, insect bites (sting) and contact dermatitis Medical Records Attestation: I reviewed the patient's medical records. Discharge Plan Discharge Clinical Impression: Accidental wasp sting, Cellulitis, Hand swelling Patient Disposition: Home Condition: Stable Instructions: Cellulitis (ED), Insect Bite or Sting (ED) Additional Instructions: Take steroids in the morning with food. Please take Antibiotics as directed. Please follow up with your Primary Care Doctor within 48-72 hours - call for an appointment. Rest and elevate affected area; apply moist heat 3-4 times daily for 10-15 minutes. Clean with soap and water only; Avoid using alcohol and peroxide. Elevate the affected area if possible If you experience any worsening redness, swelling, streaking (red lines), fever or chills please go to the ER LSeek Emergency Help If You Notice: ? Difficulty breathing or swallowing ? Swelling of the lips, tongue, or throat ? Hives over a large area ? Dizziness or fainting ? Nausea, vomiting, or a racing heart These may indicate anaphylaxis, a life-threatening allergic reaction. Call 911 or go to the ER immediately. For Less Severe Reactions (but with significant swelling): 1.?Antihistamines ? Diphenhydramine (Benadryl): 25?50 mg every 4?6 hours (adults) ? Non-drowsy alternatives: cetirizine (Zyrtec), loratadine (Claritin), fexofenadine (Sima) 2.?Cold Compress ? Apply a cold pack or cloth-wrapped ice to the area for 10?15 minutes at a time to reduce swelling and pain. 3.?Elevation ? Keep the head elevated, especially when lying down, to help reduce facial swelling. 4.?Pain Relief ? Tylenol 650-1000mg by mouth every 4-6 hours. Do not exceed 4000mg in 24 hours. ? Advil (Ibuprofen) 600 mg by mouth every 6 hours. Do not exceed 2400mg in 24 hours. 8 AM: Tylenol 11 AM: Ibuprofen 2 PM: Tylenol 5 PM: Ibuprofen 8 PM: Tylenol 11 PM: Ibuprofen 2 AM: Tylenol 5 AM: Ibuprofen 5.?Topical Corticosteroids ? Apply 1% hydrocortisone cream to the sting site (avoid near eyes or open skin). When to See a Doctor (even if not life-threatening): ? Swelling continues to worsen after 24 hours ? Sting is near the eye or airway ? Signs of infection develop (redness, warmth, pus) ? You?ve had allergic reactions to stings in the past Patient Language: Bulgarian Prescriptions: New prednisone 10 mg tablet See Rx Instructions .ROUTE .COMPLEX Qty: 21 0RF Rx Instructions: 40 mg daily for 3 days, 20 mg daily for 3 days, 10 mg daily for 3 days cephalexin 500 mg capsule 500 mg PO QID 7 Days Qty: 28 0RF No Action epinephrine [EpiPen 2-Freddy] 0.3 mg/0.3 mL auto-injector 0.3 mg IM ONCE Qty: 2 0RF Rx Instructions: as a single dose; may repeat once for bee stings levothyroxine 112 mcg tablet 112 mcg PO DAILY Qty: 90 4RF Rx Instructions: recheck labs in 6 weeks meloxicam 15 mg tablet 15 mg PO QAM Qty: 90 4RF Patient Comments: HOLD for 7 days preop per Loan sildenafil [Viagra] 50 mg tablet 50 mg PO DAILY PRN (Reason: sexual activity) Qty: 9 4RF Rx Instructions: administer 30 minutes to 4 hours before activity multivit with min-folic acid 0.4 mg Tablet 1 tablet PO DAILY aspirin [Adult Aspirin Regimen] 81 mg tablet,delayed release (DR/EC) 81 mg PO DAILY Patient Comments: Pt to hold [address] Cates phentermine 37.5 mg tablet 37.5 mg PO DAILY Qty: 20 0RF Rx Instructions: must administer 30 minutes before or 1-2 hours after breakfast Saturday-Saturday Follow-up/Referrals: Wilmar Martin MD [Primary Care Provider] - 3 Days Time of Disposition: 10:39
--- OUTSIDE RECORDS SUMMARY | 2024-10-16 10:15 | XMS_ITS | Continuity of Care Document ---
Author Organization [facility] Address [address] [place] [address] Phone Care Team Providers Care Crown Blocker Name Role Phone Viktor Umana Unavailable Unavailable Procedures Procedure Date Eye Exam Established Pt Office Consultation Ophthalmoscopy Office/outpatient Visit, Est Eye Exam, New Patient Advance Directives Directive Yes / No Effective Date File Name No Information Encounters Encounter Description Practice Location Reason(s) For Visit Diagnoses Date Provider Providers Copied on Encounter [facility], [id number] [place] [address] [address], [place], [place], [id number], [place] tel:[phone] [facility] No Information 9 Lyndsay Hoang. [address] [place], [place], [facility], . tel:[phone] Office Consultation [facility], [address], [place], [place], [id number], [place] tel:[phone] [facility] No Information 7 Lyndsay Hoang. [address] [place], [address], [place]. tel:[phone] Referring Provider: Jameson Singh, [address] [place], [place] [address], [place], [place], [facility]. tel:[phone] Office/outpati ent Visit, Est [facility], [address], [place], [place], [id number], [place] tel:[phone] [facility] No Information 0 [address] , [address], [place], [address], [place]. tel:[phone] [facility] Eye [facility], [address], [place], [place], [id number], [place] tel:[phone] [facility] No Information [address] [facility] [address] , [address], [place], [address], [place]. tel:[phone] Family History Family Member Type Diagnosis Age At Onset No Information Payers Payer name Insurance type Covered libertarian ID Authoriza tion(s) No Information Social History [...]
--- OUTSIDE RECORDS SUMMARY | 2024-10-16 10:15 | XMS_ITS ---
Author Organization [facility] Address [address] [facility] [place] [address] Care Team Providers Care Boiler Tester Name Role Phone Wilmar Martin MD Primary Care Provider [phone] Active Problems Problem Noted Date Diagnosed Date [...]
--- OUTSIDE RECORDS SUMMARY | 2024-10-16 10:15 | XMS_ITS | Clinical Summary ---
Author Organization [facility] Care Team Providers Care Technical Communication Teacher Name Role Phone Wilmar Martin MD Primary Care Provider [phone] Chris Jackson MD Unavailable [phone] Benton Trejo MD Unavailable [phone] Allergies Active Allergy Reactions Criticality Noted [...] tablet (75 mcg total) by mouth manager business systems before breakfast 2 Active acetaminophen (TYLENOL) 500 [...] (02/23/2021): Added automatically from request for surgery [id number] Cancer of anterior two-thirds of tongue 11/24/19 [...] Date Comments Dental caries Arthritis Oral cancer Osteoarthritis Hypothyroidism Social History Tobacco Use Types [...] on file Legal Sex Male 1:00 AM SENIOR SALES OPERATIONS MANAGER Gender Identity Not on file Sexual Orientation Not on file Obstetrics History Last Filed Vital Signs Vital Sign Reading Time Taken Comments Blood Pressure 140/87 12/05/2023 9:49 AM CDT Pulse 59 12/05/2023 9:49 AM CDT Temperature 36.1 C (97 F) 05/01/2021 1:43 PM SENIOR SALES OPERATIONS MANAGER Respiratory Rate 14 05/01/2021 2:55 PM SENIOR SALES OPERATIONS MANAGER Oxygen Saturation 99% 12/05/2023 9:49 AM CDT Inhaled Oxygen Concentration - - Weight 73.5 kg (162 lb) 12/05/2023 9:49 AM CDT Height 170.2 cm (5' 7) 04/18/2021 3:05 PM SENIOR SALES OPERATIONS MANAGER Body Mass Index 25.37 04/18/2021 3:05 PM SENIOR SALES OPERATIONS MANAGER Plan of Treatment Health Maintenance Due Date [...] Tdap) 11/01/2025 Medical Devices Implanted Type Area Fish Hatchery Superintendent Device Identifier Shelf Expiration Date Model / Serial / Lot [employer] [id number] 14mm 130mm Shoulder 42d Stem Humeral Trabecular Metal Tivanium - [id number] Implanted:Qty: 1 on 05/01/2021 by Jason Chang MD at [facility] [employer] [id number] 12/28/2029 [id number] / / [id number] [employer] [id number] [place] 3 Peg Monoblock Shoulder 4 Component Glenoid Sterile - [id number] Implanted:Qty: 1 on 05/01/2021 by Jason Chang MD at [facility] [employer] [id number] 12/12/2028 [id number] / / [id number] [employer] 6191-1-010 Simplex P Radiopaque Full Dose Cement Bone Sterile - [id number] Implanted:Qty: 1 on 05/01/2021 by Jason Chang MD at [facility] [employer] [id number] 06/09/2023 6191-1-010 / / [id number] [employer] [id number] 52mm 19mm Modular Shoulder Offset Head Humeral - [id number] Implanted:Qty: 1 on 05/01/2021 by Jason Chang MD at [facility] [employer] [id number] 11/08/2028 [id number] / / [id number] [employer] [id number] Steinmann 3.2mm 9in Guide Pin Orthopedic - [id number] Implanted:Qty: 1 on 05/01/2021 by Jason Chang MD at [facility] [employer] [id number] / / [id number] [place] [address] MEDICARE [facility] [place] [address] [place] [address] MEDICARE FOR LIFE SHAYLA OCAMPO [id number] MEDICARE FOR LIFE Care Teams Technical Communication Teacher Relationship Specialty Start Date End Date Wilmar Martin MD PCP - General 09/08/19 Chris Jackson MD [address] [place] [address] Surgeon Otolaryngology 11/23/20 Benton Trejo MD [address] [place] [address] Radiation Oncologist Radiation Oncology 10/31/23
--- OUTSIDE RECORDS SUMMARY | 2024-10-16 10:15 | XMS_ITS | Clinical Summary ---
Author Organization [facility] Address [address] [place] [address] Care Team Providers Care Manager Workers Compensation Name Role Phone Wilmar Martin MD Primary Care Provider [phone] Allergies Active Allergy Reactions Criticality Noted Date [...] Comments Blood Pressure 100/72 04/04/2021 9:38 AM REGIONAL SALES REPRESENTATIVE Pulse 63 04/04/2021 9:38 AM REGIONAL SALES REPRESENTATIVE Temperature 36.6 C (97.8 F) 04/04/2021 9:38 AM REGIONAL SALES REPRESENTATIVE Respiratory Rate 16 04/04/2021 9:38 AM REGIONAL SALES REPRESENTATIVE Oxygen Saturation 100% 04/04/2021 9:38 AM REGIONAL SALES REPRESENTATIVE Inhaled Oxygen Concentration - - Weight 72.6 kg (160 lb) 03/22/2021 3:35 PM REGIONAL SALES REPRESENTATIVE Height 167.6 cm (5' 6) 03/22/2021 3:35 PM REGIONAL SALES REPRESENTATIVE Body Mass Index 25.82 03/22/2021 3:35 PM REGIONAL SALES REPRESENTATIVE Plan of Treatment Health Maintenance Due Date [...] this topic Medical Devices Implanted Type Area Concession Attendant Device Identifier Shelf Expiration Date Model / Serial / Lot Knees Procedures Procedure Name Priority Date/Time Associated Diagnosis Comments COLONOSCOPY Routine 04/04/2021 9:18 AM REGIONAL SALES REPRESENTATIVE from Last 3 Months or Most Recently Relevant to Health Maintenance Results * Colonoscopy (04/04/2021 9:18 AM REGIONAL SALES REPRESENTATIVE) Narrative Rico Mejia MD - 04/04/2021 9:18 AM REGIONAL SALES REPRESENTATIVE Rico Mejia MD 04/04/2021 9:39 AM RICO [...] the left lateral decubitus position, the Olympus [id number] colonoscope was introduced into the rectum and [...] Relevant to Health [place] [address] MEDICARE [facility] Care Teams Manager Workers Compensation Relationship Specialty Start Date End Date Wilmar Martin MD [address] [address] PCP - General FAMILY PRACTICE 04/04/21
--- OUTSIDE RECORDS SUMMARY | 2024-10-16 10:15 | XMS_ITS ---
Author Organization [facility]Care Care Team Providers Care Citrus Fruit Packer Name Role Phone Wilmar Martin MD Primary Care Provider [phone] Chris Jackson MD Unavailable [phone] Benton Trejo MD Unavailable [phone] Active Problems Problem Noted Date Diagnosed Date Primary osteoarthritis of left shoulder 02/24/20 21 Overview (02/23/2021): Added automatically from request for surgery [id number] Cancer of anterior two-thirds of tongue 11/24/19 [...]
--- OUTSIDE RECORDS SUMMARY | 2024-10-16 10:15 | XMS_ITS | Clinical Summary ---
Author Organization [email or web address] Address [address] [place] [address] Care Team Providers Care Steam Boiler Fireman Name Role Phone Wilmar Martin MD Primary Care Provider [phone] Source Comments [email or web address],non-owned Affiliates and Associated Physician Practices is amultiple site organization consisting of ambulatory clinics and hospital sitesin [place], [place], [place] and [place]. This disclosure is being madepursuant to the Care Everywhere program and may not contain all information available regarding this patient. Last updated 17.[email or web address] Allergies Active Allergy Reactions Criticality Noted Date Comments Bee Venom Urticaria,Rash Medium 01/26/2019 Codeine Nausea and/or Vomiting Low 06/13/2022 Medications * Be aware that medications may not be up to date on this document. Alwaysverify current medications with the patient. meloxicam (MOBIC) 15 MG tablet Take 1 (one) tablet by mouth once daily 10/24/2018 Active Multiple Vitamins-Minera ls (MULTIVITAMIN ADULT EXTRA C PO) Take 1 [...] tablet by mouth once daily 04/08/2023 Active amoxicillin (Amoxil) 500 MG capsule Take 1 (one) capsule by mouth 2 times daily 07/16/2024 Active EPINEPHrine (Epipen) 0.3 MG/0.3ML auto-injector pen Inject 0.3 mL into muscle once as needed 04/13/2024 Active phentermine (Adipex-P) 37.5 MG tablet Take 1 (one) tablet by mouth once daily 2024 Active Active Problems Problem Noted Date Diagnosed Date Tongue cancer Resolved Problems Problem Noted Date Diagnosed Date Resolved Date 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 08/29/2024 Encounters Date Type Department Care Team Description 08/28/2024 10:30 AM CDT Office Visit [facility] - ENT [address] [place] [phone] Chris Jackson MD Tongue cancer (HCC) (Primary Dx) 08/28/2024 Travel from Last 3 Months Immunizations Immunization Administration Dates Next Due Pongr primary monovalent 12+ yr 0.3mL Pur ple [...] at Not on file Legal Sex Male 4:16 AM CDT Gender Identity Not on file Sexual Orientation Not on file Last Filed Vital Signs Vital Sign Reading Time Taken Comments Blood Pressure 141/81 08/28/2024 10:13 AM CDT Pulse 74 08/28/2024 10:13 AM CDT Temperature 36.6 C (97.8 F) 06/10/2020 9:44 AM CDT Respiratory Rate 16 09/27/2021 10:57 AM CDT Oxygen Saturation 98% 04/22/2019 10:59 AM STRANNER Inhaled Oxygen Concentration 21% 01/29/2019 1 :25 PM STRANNER Weight 64 kg (141 lb) 08/28/2024 10:13 AM CDT Height 167.6 cm (5' 6) 08/28/2024 10:13 AM CDT Body Mass Index 22.76 08/28/2024 10:13 AM CDT Plan of Treatment Upcoming Encounters Date Type Department Care Team (Late st Contact Info) Description 09/03/2025 10:30 AM CDT Office Visit [facility] - ENT [address] [place] [phone] Chris Jackson MD [address] [place] [id number] Health Maintenance Due Date Last Done Comments COLOGUARD (AGES 45-75) - COL ON CA SCREENING 1950 CT COLONOGRAPHY - COLON CA SCREENING 1950 FIT - COLON CA SCREENING 1950 FLEX SIG - COLON CA SCREENING 1950 LIPID TESTING 1950 MEDICARE AWV 12 MONTHS 1950 HEPATITIS C SCREENING 08/12/1969 DTAP/TDAP/TD VACCINES (1 - Tdap) 08/16/1970 ZOSTER VACCINE (3 of 3) 06/14/2019 04/19/19 20, 12/31/2013 PNEUMOCOCCAL VACCINE 50+ (2 of 2 - PCV) 04/19/2020 04/19/2019 COVID-19 VACCINE (2 - 2023-2 5 season) 2023 04/26/2020 DEPRESSION SCREENING 03/11/2024 INFLUENZA VACCINE (#1) 2024 0, 03/24/2007, 03/24/2007 Respiratory Syncytial Virus (RSV) Vaccine Pt: or over 60 yrs (1 - 1-dose 75+ series) 08/16/2026 COLON MONITORING 04/04/2031 04/04/2021 COLONOSCOPY - COLON CA SCREENING 04/04/2031 04/04/2021 [...] on patient's age to complete this topic Insurance [facility] [employer] Address: [address] [place] [address] MEDICARE MEDICARE Advance Directives * Full Code (Latest Code Status on File) Date Activated Date Inactivated Comments 02/19/2019 7:49 PM 02/20/2019 3:45 PM * Full Code Date Activated Date Inactivated Comments 02/19/2019 12:04 PM 02/19/2019 7:49 PM Care Teams Steam Boiler Fireman Relationship Specialty Start Date End Date Wilmar Martin MD [address] [place] [address] PCP - General 10/17/18
--- OUTSIDE RECORDS SUMMARY | 2024-10-16 10:15 | XMS_ITS | Clinical Summary ---
Author Organization [facility] Address [address] [place] [address] Care Team Providers Care Design Cell Engineer Name Role Phone Wilmar Martin MD Primary Care Provider [phone] Allergies Active Allergy Reactions Criticality Noted Date Comments Codeine Nausea and Vomiting Low 06/13/2022 Venom-Honey Bee Rash Low 06/13/2022 Medications Synthroid 112 mcg tablet 3 Active meloxicam (MOBIC) 15 mg tablet 3 Active multivitamins- minerals-lutei n (CENTRUM SILVER) Tablet Take 1 Tablet by mouth daily. Active ferrous sulfate 134 mg (27 mg iron) Tablet Take 134 mg by mouth. Active EPINEPHrine (EPIPEN) 0.3 mg/0.3 mL Auto-Injector Inject 0.3 mg by intramuscular injection see administration instructions. 5 Active phentermine (ADIPEX P) 37.5 mg tablet Take 37.5 mg by mouth one time as needed for Other (See Comment) (Diet). 5 Active sildenafiL (VIAGRA) 50 mg tablet Take 50 mg by mouth 1 time daily as needed for Erectile Dysfunction. 4 Active Active Problems No known active problems Encounters Date Type Department Care Team Description 09/25/2024 9:00 AM CDT Office Visit [facility] On[facility] and Hematology - [place] [address] [facility] [place] [address] Vinny August MD Chronic anemia (Primary Dx) 09/25/[address] [facility]ology - [place] [address] [place] [address] Vinny August MD 09/23/[address] 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 Gender Identity Not on file Sexual Orientation Not on file Last Filed Vital Signs Vital Sign Reading Time Taken Comments Blood Pressure 128/78 09/25/2024 8:58 AM CDT Pulse 64 09/25/2024 8:58 AM CDT Temperature 36.8 C (98.2 F) 09/25/2024 8:58 AM CDT Respiratory Rate 16 09/25/2024 8:58 AM CDT Oxygen Saturation 98% 09/25/2024 8:58 AM CDT Inhaled Oxygen Concentration - - Weight 69.3 kg (152 lb 12.8 oz) 09/25/2024 8:58 AM CDT Height 170.2 cm (5' 7) 06/13/2022 2:57 PM CDT Body Mass Index 23.93 06/13/2022 2:57 PM CDT Plan of Treatment Upcoming Encounters Date Type Department Care Team (Late st Contact Info) Description 09/27/2025 10:15 AM CDT Office Visit [facility] Oncology and Hematology - [place] [address] [place] [address] Vinny August MD [address] [place] [address] Health Maintenance Due Date Last Done Comments DTAP/TDAP/TD VACCINES (1 - Tdap) 08/16/1970 FIT-DNA Q 3 years 08/16/1996 FIT/FOBT Q 1 year 08/16/1996 Flex Sig/CT Colonography Q 5 years 08/16/1996 ZOSTER VACCINE (3 of 3) 06/14/2019 04/19/2019, 12/31 PNEUMOCOCCAL VACCINE 50+ YEA RS (2 of 2 - PCV) 04/19/2020 04/19/2019 COVID-19 Vaccine (2 - season) 2023 INFLUENZA VACCINE (#1) 2024 04/19/2019 RSV VACCINE (60+ or ) (1 - 1-dose 75+ series) 08/16/2026 COLORECTAL SCREENING 04/04/2031 04/04/2021, 04/04/2021, 04/04/2021 Colorectal Cancer Screening 04/04/2031 Procedures Procedure Name Priority Date/Time Associated Diagnosis Comments COMPREHENSIVE METABOLIC PANEL Routine 09/23/2024 3:01 PM CDT CBC WITH DIFFERENTIAL Routine 09/23/2024 2:04 PM CDT from Last 3 Months Results * COMPREHENSIVE METABOLIC PANEL (09/23/2024 3:01 PM CDT) Blood Vinny August MD CHEMISTRY ORDERABLES Final Resu lt * CBC WITH DIFFERENTIAL (09/23/2024 2:04 PM CDT) Blood us Vinny August MD HEMATOLOGY ORDERABLES Final Res ult from Last [address] [place] [id number] MEDICARE PART A AND B FOR LIFE Care Teams Design Cell Engineer Relationship Specialty Start Date End Date Wilmar Martin MD [address] [place] [address] PCP - General Family Practice 06/13/22
--- OUTSIDE RECORDS SUMMARY | 2024-10-16 10:16 | XMS_ITS | Continuity of Care Document ---
Author Organization [facility] Address [address] [place] [address] Phone Care Team Providers Care Set Decorator Name Role Phone Viktor Umana Unavailable Unavailable Procedures Procedure Date Eye Exam Established Pt Office Consultation Ophthalmoscopy Office/outpatient Visit, Est Eye Exam, New Patient Advance Directives Directive Yes / No Effective Date File Name No Information Encounters Encounter Description Practice Location Reason(s) For Visit Diagnoses Date Provider Providers Copied on Encounter [facility], [id number] [place] [address] [address], [place], [place], [id number], [place] tel:[phone] [facility] No Information 9 Lyndsay Hoang. [address] [place], [place], [facility], . tel:[phone] Office Consultation [facility], [address], [place], [place], [id number], [place] tel:[phone] [facility] No Information 7 Lyndsay Hoang. [address] [place], [address], [place]. tel:[phone] Referring Provider: Jameson Singh, [address] [place], [place] [address], [place], [place], [facility]. tel:[phone] Office/outpati ent Visit, Est [facility], [address], [place], [place], [id number], [place] tel:[phone] [facility] No Information 0 [address]. [address] , [address], [place], [address], [place]. tel:[phone] [facility] Eye [facility], [address], [place], [place], [id number], [place] tel:[phone] [facility] No Information [address] [facility] [address]. [address] [place] , [address], [place], [address], [place]. tel:[phone] Family History Family Member Type Diagnosis Age [...]
[2024-10-16 10:19] VITALS: BP 141/85; PULSE 70; RESP 18; TEMP 36.6; O2SAT 100
[2024-10-16] MEDS: dexAMETHasone SOD PHOS INJ 10 MG/ML 1 ML VIAL IM (10:30)
== END 2024-10-16 10:40 | disposition home or self-care (01) ==
PROVIDERS: Emergency Provider Nurse Practitioner Family; PCP Family Medicine
DX: T63.461A Toxic effect of venom of wasps, accidental (unintentional), initial encounter (principal); L03.113 Cellulitis of right upper limb; R22.31 Localized swelling, mass and lump, right upper limb; E78.2 Mixed hyperlipidemia; M19.90 Unspecified osteoarthritis, unspecified site; M19.012 Primary osteoarthritis, left shoulder; Z85.810 Personal history of malignant neoplasm of tongue; Z96.653 Presence of artificial knee joint, bilateral; Z90.89 Acquired absence of other organs
CPT/HCPCS: 96372; 99213; G0463; J1100